=== PATIENT | female | born 1940 | race Caucasian/White ===

== ENCOUNTER 2017-06-02 10:32 | Observation (INO) | payer MEDICARE, OTHER ==
--- NOTE | 2017-06-02 13:24 | HP ---
DATE OF ADMISSION: 06/02/2017 PRIMARY CARE PHYSICIAN: Dr. Alvarez CHIEF COMPLAINT: Fall, sepsis. HISTORY OF PRESENT ILLNESS: Ms. Lopez is a pleasant 76-year-old female with history of breast ca ncer status post mastectomy on 05/25/2017 at [facility]. She was scheduled to have followup in the very near future and possible drain removal. She apparent ly was taken to an outside Emergency Department in [place] via EMS. The patient has had some i ntermittent confusion, and at home had slid to the floor and so called 911 because he could not get her off the floor on the side of the bed. About 3-4 hours prior to presentation there, one of the two drains in her mastectomy bed was actually being pulled out. On arrival to the ER there and via EMS, temperature was 101.9, the rest of her vitals remained stabl e. Her labs there were unremarkable except for white blood cell count of 15.6 and exam was noted to have some erythema at the surgical site. She received a 500 mL bolus out of fear that she might julian ve heart failure and did not want to overload her. They contacted [facility] and spoke to a Dr. Fry at [phone], who said he would accept her as a transfer to the emergency department and wo uld evaluate her, but was not certain if she would be admitted, but certainly would be evaluated. T he ER doctor in [place] was concerned about her being septic and about her possibly being disch arged home from there and so arranged for transport to our emergency department here in [place]. On arrival here, she is afebrile with normal vital signs. Repeat labs were not done. Wound was juancho luated and we were called for admission. I have attempted to call Dr. Fry and left a message, I have attempt to talk to her to get further history, but he is not at home at present. The remainder of the history is taken from the patient, although admittedly not 100% reliable, and f rom the emergency room charts. PAST MEDICAL HISTORY: 1. Atrial fibrillation, paroxysmal. 2. History of breast cancer, estrogen receptor status unknown. 3. Hypertension. 4. Hypothyroidism. 5. GERD. 6. Depression. PAST SURGICAL HISTORY: Include hysterectomy and right mastectomy. HOME MEDICATIONS: 1. Vitamin C. 2. Tramadol p.r.n. 3. BiDil 20/37.5 1/2 tablet p.o. t.i.d. 4. Bupropion XL 150 mg p.o. b.i.d. 5. Coreg 6.25 mg p.o. b.i.d. 6. Iron sulfate 325 mg daily. 7. Lasix 40 mg daily. 8. Digoxin 0.125 mg daily. 9. Levothyroxine 100 mcg daily. 10. Lisinopril 10 mg daily. 11. Protonix 40 mg daily. 12. Paxil 20 mg daily. 13. Spironolactone 25 mg daily. 14. Vitamin D3 1000 units p.o. t.i.d. 15. Multivitamin. ALLERGIES: CODEINE causes nausea. FAMILY HISTORY: Negative for clotting or bleeding disorder, no immune dysfunction. SOCIAL HISTORY: Negative for habits x3. She is and lives in [place]. REVIEW OF SYSTEMS: A 10-point review of systems was performed and negative for all other systems ex cept as per HPI. PHYSICAL EXAMINATION: VITAL SIGNS: Temperature is 98.5, pulse 70, blood pressure 103/56, respiratory rate 16, satting 98% on room air, temperature in the ER at [place] was 100.8, temperature on transfer via EMS was 1 01.9. GENERAL: She is awake. She is alert. She is oriented. She is tired looking, elderly, white femal e, appears to be in no acute distress. She does seem a little confused, but seems to answer questio ns appropriately. HEENT: Normocephalic, atraumatic. Pupils equal, round, reactive to light bilaterally, mucous membr anes moist, with no visible lesions and no thrush. NECK: Supple, without lymphadenopathy, JVD, or thyromegaly. Normal carotid upstrokes. LUNGS: Clear bilaterally. She has no wheezes, no rales, no rhonchi with good air movement and symm etric chest excursion. CARDIOVASCULAR: She is irregularly irregular. She has a normal S1 and S2. I cannot appreciate any murmurs. ABDOMEN: Soft, it is nontender, nondistended, no masses or organomegaly with normoactive bowel soun ds present in all 4 quadrants. There is no rebound, rigidity or guarding. EXTREMITIES: Show no cyanosis, no clubbing with trace bilateral lower extremity edema with 1+ perip heral pulse of the dorsalis pedis and posterior tibial arteries of the legs bilaterally. SKIN: Warm, moist, and well perfused. She does have a healing surgical wound present on the right breast after complete mastectomy. The incision is healing well with one small area approximately 0. 5 x 0.3 cm that is still open a little bit. She has [address] and there is appro ximately 5 to 10 of fluid in the drain that the patient said was last drained 24 hours ago. She has a small Davol drain connected to a small caliber drain tube that is not in the chest anymore. The wound is clean, dry, and intact without any drainage. Surrounding both insertion sites there is min imal erythema with hyperemia, that is blanchable, and quickly refills. It is slightly tender in the shoulder and upper and lower chest area on the right. There are no other rashes or lesions noted. MUSCULOSKELETAL: Normal to inspection. She has no inflamed joints. No palpable joint effusions at her shoulders, knees, elbows, ankles and hips. NEUROLOGIC: Her cranial nerves II-XII are grossly intact. She has no focal neurologic deficits, no rmal strength, and a normal speech pattern. LABORATORY: Laboratory evaluation from [place] showed a comprehensive metabolic profile that w as normal. Creatinine 1.34. I am not sure of her baseline. Troponin I and CK-MB were normal. [facility] te blood cell count was 15.6 with 85% granulocytes and no documented bands. Hemoglobin is 12.1, hem atocrit 35.1, platelet count of 296,000. Her digoxin level was 1.12. RADIOGRAPHIC STUDIES: 1. She had a CT angiogram of the thorax was negative for pulmonary embolus and showed normal postop changes of the right breast. 2. She had a brain CT without contrast done that showed no acute intracranial abnormality, no bleed , no skull fracture. ASSESSMENT AND PLAN: 1. Possible postoperative wound infection. She has minimal erythema around the drain insertion sit e. We will cover vancomycin and cefepime. I will obtain blood cultures for temperature greater alma n or equal to 101.0. I have called Dr. Fry, her oncologic surgeon from [facility] and gen durand a call back. I will place her in observation, start her on antibiotics, and IV fluids. We will w atch overnight. If she improves or remains stable and has no further fever, will transition to oral antibiotics and let her follow up with [facility]. I will try to get the current drain status b ack from her surgeon. 2. Sepsis: Elevated white count, fever, presumed bacterial infection of the breast site, the patie nt received 500 mL bolus at outside hospital. She has no history of heart failure. She has remaine d hemodynamically stable with negative lactate and normal organ test here, therefore we will continu e at 100 mL an hour of normal saline and watch overnight. 3. Atrial fibrillation, paroxysmal, versus persistent: She is on digoxin, Coreg, and is hemodynami shelley stable. Her rate is well controlled. 4. Breast cancer: Estrogen receptor status unknown. 5. Hypertension: She is on BiDil, Coreg, Lasix, lisinopril. We will hold these at present, she do es not believe she had her medicine this morning, and her blood pressure here has been borderline no rmal. 6. Hypothyroidism on Synthroid, we will continue. 7. Gastroesophageal reflux disease, on Protonix. We will continue. 8. Depression, on bupropion and Paxil. We will continue at a later date. 9. Physical debility: was unable to get her off the floor, and feel that she would benefit from rehab. She has been at an outside facility for 3 midnights in the last 30 days, and thus I wi ll discuss with case management getting her set up for rehab close to home. We will continue current management.
[2017-06-02] MEDS ORDERED: HYDROcodone/Acetaminophen 5/325 mg Tablet PO PRN (14:56)
[2017-06-02] MEDS ORDERED: HYDROcodone/Acetaminophen 10/325 mg Tablet PO PRN (14:56)
[2017-06-02] MEDS ORDERED: VANCOMYCIN IVPB PRN (14:56)
[2017-06-02] MEDS ORDERED: Acetaminophen 325 MG TAB PO PRN (14:56)
[2017-06-02] MEDS ORDERED: Ondansetron ODT 4 MG TAB PO PRN (14:56)
[2017-06-02 15:50] VITALS: BMI 29.8
[2017-06-02] MEDS: Sodium Chloride 0.9% 1,000 ML IV SCH (16:23)
[2017-06-02] MEDS ORDERED: Vancomycin HCl 1 GM in Premix Bag 1 BAG IVPB SCH (17:00)
[2017-06-02] MEDS: Cefepime 2 GM in Sodium Chloride 0.9% 100 ML IVPB SCH (18:28)
[2017-06-02] MEDS ORDERED: FLU VACC TS2017-18 (>65YR) 0.5 ML SYRINGE IM ONE (21:00)
[2017-06-03] MEDS: Cefepime 2 GM in Sodium Chloride 0.9% 100 ML IVPB SCH (03:19)
[2017-06-03] MEDS: Sodium Chloride 0.9% 1,000 ML IV SCH ×2 (03:19→12:35)
[2017-06-03 05:55] LABS: #Eosinphils 0.4 thou/uL (0.0-0.7); #Lymphocytes 1.4 thou/uL (1.20-3.40); #Monocytes 0.7 thou/uL (0.11-0.59); #Neutrophils 5.8 thou/uL (1.40-6.50); %Basophils 0.3 % (0.0-1.0); %Eosinophils 4.8 % (0.0-10.0); %Monocytes 8.6 % (0.0-10.0); Hematocrit 33.5 % (36.0-47.0); Mean Platelet Volume 7.4 fL (7.4-10.4); Red Blood Cell (RBC) Count 3.65 mill/uL (4.20-5.40); White Blood Cell (WBC) Count 8.3 thou/uL (4.8-10.8)
[2017-06-03 06:26] LABS: Anion Gap 7 mmol/L (10-20); BUN (Urea Nitrogen) 18 mg/dL (9.8-20.1); Calc. Creatinine Clearance 54 mL/min (70-130); Calcium 8.9 mg/dL (7.8-10.44); Carbon Dioxide 26 mmol/L (23-31); Chloride 106 mmol/L (98-107); Estimated GFR-MDRD 53
[2017-06-03] MEDS ORDERED: Enoxaparin Sodium 40 MG/0.4 ML SYRINGE SC SCH (09:00)
--- NOTE | 2017-06-03 16:33 | DIS ---
DATE OF ADMISSION: 06/02/2017 DATE OF DISCHARGE: 06/03/2017. PRIMARY CARE PHYSICIAN: Dr. Pinzon in [place]. DISCHARGE DIAGNOSES: 1. Postoperative right mastectomy site wound infection/cellulitis. 2. Sepsis. 3. Hypertension. 4. Paroxysmal atrial fibrillation. 5. Breast cancer. 6. Hypertension. 7. Hypothyroidism. 8. Gastroesophageal reflux disease. 9. Depression. 10. Physical debility. CONSULTATIONS: None. PROCEDURES: Posterior/large Davol drain removal. HISTORY AND PHYSICAL : Ms. Lopez is a pleasant 76-year-old female with breast cancer, estrogen r eceptor status unknown, who has followed in [facility]. On 05/25/2017, she underwe nt a right mastectomy and placement of 2 subcutaneous drains. She was discharged home after 1 night stay and has been getting home care through [facility]. She developed weakness over the last several days and actually the day of admission had fallen down by her bed and slid down and sat on the floor. She was able to give her own strength and not with t he strength of her either. They called EMS and she was taken to an outside Emergency Depart ment at [place]. En route, she was reported to be 101.9 degrees Fahrenheit, she was sleepy, but otherwise unremarkabl e with normal vital signs. On arrival there, workup showed a white blood cell count of 15,600 and an erythematous incisional ar ea. It was also noted that are smaller Davol, anterior, had been pulled a few hours before EMS arri lorelei incidentally. The ER doctor there called [facility] who agreed to see the patient on transferred to their ER an d evaluate to decide whether to keep or sent home on oral antibiotics, but instead the ER doctor Cordell de anda transferred here for further evaluation to ensure she was admitted. HOSPITAL COURSE: The patient was seen and examined by me in the ER, she was hemodynamically stable and mental status was stable. She had a slight erythema of her wound and actually looked very good. Her was not present and I could not get any further history and subsequently called Dr. Alli bardales at [facility]. The patient was placed on observation status, started IV antibiotics and Dr. Horn called me back. We discussed the plan of observation with antibiotics and repeat labs in morning, which she is agreeable with and the patient was subsequently admitted. Overnight, she did well, she had no fevers. Tolerated vancomycin and cefepime well. She had a slig ht decreased erythema to her wound, and some clear serous drainage from the anterior drain hole. Po sterior drain was still in place and still maintaining suction, and had no additional drainage from the time she has been in the ER 24 hours prior. Through the course of the day, she had minimal ajith tion to her Davol, she was able to get with physical therapy and ambulated well over 150 feet with m inimal assistance, and was hemodynamically stable. White blood cell count was normal. I spoke with Niurka, Dr. Fry's PA, and discussed the case with her. She asked me to pull the drain if the patient was not going to be coming to the clinic tomorrow, but instead next week. I discuss ed at length with the and the when the arrived, and he preferred to show up ear ly next week. The drain was subsequently removed and covered with a dry gauze. Prescriptions were sent to [facility] per the 's request and the patient was otherwi se stable for discharge with follow up with [facility] early next week for wound check, Radiation and Oncology follow up. PHYSICAL EXAMINATION: The patient was seen and examined on the day of discharge. Discharge plan and disposition were discussed with the patient and her face to face at the [facility]. DISCHARGE MEDICATIONS: 1. Clindamycin 300 mg p.o. t.i.d. for 10 days. 2. Keflex 500 mg p.o. t.i.d. for 10 days. 3. Benzonatate p.r.n. 4. Carvedilol 6.25 mg p.o. b.i.d. 5. Digoxin 0.125 mg p.o. daily. 6. Lasix 40 mg daily. 7. BiDil 20/37.5 1/2 tablet p.o. t.i.d. 8. Levothyroxine 100 mcg daily. 9. Lisinopril 5 mg daily. 10. Paroxetine 20 mg daily. 11. Potassium chloride 20 mEq daily. 12. Spironolactone 25 mg daily. FOLLOWUP APPOINTMENTS: 1. Primary care physician within a week. 2. [facility] Wednesday or Masha. Marry, physician's data analysis assistant will call with appointment time. DISCHARGE CONDITION: Good. Disposition being discharged to home with home health care [facility] via a private vehicle with her .
[2017-06-03 16:36] VITALS: TEMP 98
[2017-06-03 17:41] VITALS: BP 119/82
--- NOTE | 2017-06-05 14:48 | EKG ---
Test Reason : Blood Pressure : / mmHG Vent. Rate : 070 BPM Atrial Rate : 070 BPM P-R Int : 164 ms QRS Dur : 086 ms QT Int : 366 ms P-R-T Axes : 016 031 -36 degrees QTc Int : 395 ms Normal sinus rhythm Nonspecific T wave abnormality Abnormal ECG Confirmed by TRACY CASE, IVAN Lira ([id number]), editor in chief newspaper PEREZ BATISTA ([id number]) on 06/05/2017 2:48:08 PM Referred By: Confirmed By:IVAN MOLINA MD
== END 2017-06-03 17:07 | disposition home health service (06) ==
LOC: ERS 10:32 → INTOOBSV 12:59 → T4-B 12:59
PROVIDERS: ADMIT Internal Medicine Infectious Disease; ATTEND Internal Medicine Infectious Disease
DX: T81.4XXA Infection following a procedure, initial encounter (principal); A41.9 Sepsis, unspecified organism; C50.919 Malignant neoplasm of unspecified site of unspecified female breast; I10 Essential (primary) hypertension; I48.0 Paroxysmal atrial fibrillation; E03.9 Hypothyroidism, unspecified; K21.9 Gastro-esophageal reflux disease without esophagitis; F32.9 Major depressive disorder, single episode, unspecified; R53.81 Other malaise; Z88.5 Allergy status to narcotic agent; Z79.899 Other long term (current) drug therapy; Z90.10 Acquired absence of unspecified breast and nipple
CPT/HCPCS: 80048; 85025; 93005; 96361 ×3; 96365; 96366; 96367; 96372; 96376; 97116; 97139; 99285; G0378; G8978; G8979; 36415; 96360; J0692; J1650; J3370; J7050

== ENCOUNTER 2017-12-05 03:22 | Emergency (ER) | payer MEDICARE, OTHER ==
[2017-12-05] MEDS ORDERED: Fleet Enema 133 ML BOT FS SCH (04:15)
[2017-12-05] MEDS ORDERED: Fluconazole 100 MG TAB PO SCH (04:45)
[2017-12-05] MEDS ORDERED: Magnesium Citrate 300 ML BOT PO SCH (05:30)
[2017-12-05] MEDS ORDERED: Magnesium Citrate 300 ML BOT ONE (05:43)
--- NOTE | 2018-01-16 | EKG ---
Test Reason : Blood Pressure : / mmHG Vent. Rate : 088 BPM Atrial Rate : 088 BPM P-R Int : 174 ms QRS Dur : 084 ms QT Int : 426 ms P-R-T Axes : 069 030 039 degrees QTc Int : 515 ms Sinus rhythm with frequent Premature ventricular complexes Prolonged QT Abnormal ECG Confirmed by TESS MANDEL ([id number]), editor producer PEREZ BATISTA ([id number]) on 01/15/2018 11:59:53 PM Referred By: Confirmed By:TESS MANDEL
== END 2017-12-05 10:24 | disposition home or self-care (01) ==
LOC: ERS 03:22
DX: K56.41 Fecal impaction (principal); K60.2 Anal fissure, unspecified; B37.9 Candidiasis, unspecified; I48.91 Unspecified atrial fibrillation
CPT/HCPCS: 93005; 96360; 96361

== ENCOUNTER 2019-09-08 04:27 | Inpatient (IN) | payer MEDICARE, OTHER ==
[2019-09-08 04:41] LABS: Actual Bicarbonate (HCO3a) 22.1 mEq/L (22-28); Analyzer IN Cardio ER; Base Excess (BEa) -2.7 mEq/L (-2.0 to +3.0); CO2 Tension 38.5 mmHg (35.0-45.0); Calcium, Ionized 1.18 mmol/L (1.12-1.30); Carboxyhemoglobin (COHb) 0.3 gm% (0.0-3.0); Hemoglobin (Hb) 12.9 g/dL (12.0-16.0); O2 Tension (PaO2) 80.9 mmHg (> 70.0); Potassium - ABG Lab 3.62 mmol/L (3.70-5.30); pH, Arterial 7.38 (7.35-7.45)
[2019-09-08 04:54] LABS: ALV-art Gradient 156.175 (0-20); Puncture Site LBA
[2019-09-08] MEDS ORDERED: Furosemide 100 MG/10 ML VIAL SLOW IVP SCH (06:00)
[2019-09-08 07:02] LABS: CKMB 4.2 ng/mL (0-6.6)
[2019-09-08 08:19] VITALS: BMI 34.2
[2019-09-08] MEDS ORDERED: hydrALAZINE 20 MG/ML VIAL SLOW IVP PRN (08:23)
--- NOTE | 2019-09-08 08:55 | HP ---
PRIMARY CARE PHYSICIAN: Dr. Pinzon. CHIEF COMPLAINT: Shortness of breath. HISTORY OF PRESENT ILLNESS: Ms. Lopez is a pleasant 78-year-old female, who has a history of congestive heart failure, unknown type, as well as hypertension and hypothyroidism. She was in her usual state of health until she says yesterday when she suddenly became short of breath. She tells me she was not having much problems prior to that. She denies having any chest pain or palpitations. No increasing lower extremity edema. No PND or orthopnea, but just suddenly became short of breath. Her primary care physician is Dr. Pinzon and she says it has been "a long time" since she saw her at least over a year when I asked, and as our conversation progressed, she appeared to be becoming more tachypneic and using some accessory muscles of respiration. She was seen in the ER and found to be extremely short of breath as well as hypoxic. Chest x-ray showed bilateral pulmonary infiltrates, the right more than the left, and they were on the verge of intubating her. Apparently, according to those records, she refused this. They placed her on BiPAP and then CPAP and then transferred her here. When I asked the patient would she want to be intubated, she confirms that she does not want to be placed on a ventilator. However, during our conversation, we will have to place her back on BiPAP. REVIEW OF SYSTEMS: This is unobtainable as the patient is extremely dyspneic. PAST MEDICAL HISTORY: Significant for congestive heart failure, atrial fibrillation, hypothyroidism, hypertension, breast cancer as well as anxiety. PAST SURGICAL HISTORY: She has had a right mastectomy as well as hysterectomy. ALLERGIES: TO CODEINE AND SULFA. SOCIAL HISTORY: She is a nonsmoker and nondrinker. She is . She does not want intubation, but will accept CPR. FAMILY HISTORY: No history of any inheritable diseases. MEDICATIONS: Currently unknown. PHYSICAL EXAMINATION: GENERAL: She is alert and oriented. She appears to be in some distress due to dyspnea. She is well developed and well nourished. VITAL SIGNS: Blood pressure 133/70, heart rate 116, respiratory rate of 24, temperature is 97.8. HEENT: Pupils are equal, round, and reactive. Extraocular muscles are intact. Her sclerae anicteric. Throat: There is no erythema, no exudates. She is edentulous. NECK: She did have increased jugular venous distention to the angle of the jaw approximately 4 to 5 cm. There are no bruits. LUNGS: She has bilateral rales throughout her lung alexander as well as some mild expiratory wheezing bilaterally. CARDIOVASCULAR: There was a normal S1 and S2. No appreciable S3. No murmurs, clicks, or rubs. ABDOMEN: Soft, nontender, and nondistended. Positive for bowel sounds. No rebound. No guarding. No organomegaly. EXTREMITIES: She has 1+ edema. No calf tenderness, no joint effusions. NEUROLOGIC: Nonfocal. SKIN AND INTEGUMENT: There are no skin changes. No rash. LABORATORY DATA: CBC, the white blood cell count is 11.1, hemoglobin 13, hematocrit is 42.7, and platelet count is 228. The sodium is 138, potassium 3.1, chloride is 101, CO2 is 19, BUN of 21, creatinine 1.57, glucose is 265. BNP was 1166. Troponin was 0.126. Again, chest x-ray showed bilateral increased pulmonary vascular markings. EKG, currently she is in sinus rhythm, the rate was 119. She had some, what appears to be, T-wave inversions in 1 and aVL. This is both by my reading. ASSESSMENT: This is a pleasant 78-year-old female, who presents to the ER with shortness of breath as well as clinical evidence for heart failure with pulmonary edema, distended neck veins as well as peripheral edema, elevated BNP on lab work, as well as chest x-ray which was consistent. She will be admitted to the [facility], given that she has required BiPAP and currently had to be placed back on BiPAP. We will continue IV Lasix for diuresis. We will add QUINTON inhibitor as tolerated. Echocardiogram has been ordered and we will also consult Cardiology. 1. Atrial fibrillation. This appears to be rate controlled at this time, she is slightly tachycardic. We will need to reconcile her home medications and restart as appropriate. 2. Hypertension. Again, she is a bit hypertensive. We will need to reconcile and restart her home medications and titrate as needed. 3. Hypothyroidism. We will check a TSH and free T4 to assess the status. Job ID: [id number]
[2019-09-08 09:56] LABS: Troponin I 0.147 ng/mL (< 0.028)
[2019-09-08] MEDS: Lisinopril 5 MG TAB PO SCH (10:17)
[2019-09-08] MEDS: Famotidine/PF 20 mg/2ml Vial SLOW IVP SCH ×2 (10:18→22:31)
[2019-09-08] MEDS: Carvedilol 3.125 MG TAB PO SCH ×2 (10:18→20:03)
[2019-09-08] MEDS: Enoxaparin Sodium 30 MG/0.3 ML SYRINGE SC SCH (10:18)
[2019-09-08 10:21] LABS: Thyroid Stimulating Hormone 96.8011 uIU/mL (0.35-4.94)
[2019-09-08] MEDS ORDERED: Furosemide 40 MG/4 ML VIAL SLOW IVP SCH (11:30)
[2019-09-08 12:06] LABS: Troponin I 0.129 ng/mL (< 0.028)
[2019-09-08] MEDS: Furosemide 40 MG/4 ML VIAL SLOW IVP SCH (15:02)
[2019-09-08] MEDS: Nitroglycerin 2% Ointment 1 INCH/1 GM Packet TOP SCH ×2 (15:02→22:53)
[2019-09-08 17:37] LABS: Free T4 (Free Thyroxine) Less than 0.40 ng/dL (0.70-1.48)
--- NOTE | 2019-09-09 01:23 | CON ---
DATE OF CONSULTATION: 09/08/2019 HISTORY OF PRESENT ILLNESS: Sary Lopez is a pleasant 78-year-old female. She is admitted with a diagnosis of congestive heart failure. She says she feels better than she did on admission. She has no history that she will admit to a congestive heart failure and says she has never seen a furniture painter. She presented with more than 24 hours of shortness of breath. Chest radiograph showed findings consistent with pulmonary edema. She was initially placed on BiPAP, has been weaned off and says she is feeling better. PAST MEDICAL HISTORY: Remarkable for atrial fibrillation, hypothyroidism, hypertension, breast cancer, anxiety, mastectomy, and hysterectomy. ALLERGIES: SHE REPORTS ALLERGIES TO SULFA AND CODEINE. SOCIAL HISTORY: Nonsmoker and nondrinker. FAMILY HISTORY: Negative for lung disease in early age. REVIEW OF SYSTEMS: 10 point review of systems completed, otherwise negative. PHYSICAL EXAMINATION: GENERAL: She is pleasant and cooperative, in no distress. She is lying in approximately 30 degrees. I did help her sit up more in bed because she said she wanted to be more upright. VITAL SIGNS: She is afebrile. Heart rate is in 80s, respiratory rates in the teens, oximetry is 95% to 97% this evening. HEENT: Pupils are equal. Sclerae are anicteric. NECK: Supple. No lymphadenopathy. LUNGS: Remarkable for crackles at both lung bases. HEART: Regular rhythm. S1, S2 normal. ABDOMEN: Soft and nontender. EXTREMITIES: Without clubbing, cyanosis, or edema. LABORATORY DATA: pH 7.38, CO2 38, PO2 80. Troponins are all less than 0.2. TSH was 96. IMPRESSION: 1. New onset congestive heart failure. 2. Severe hypothyroidism. PLAN: 1. Thyroid replacement gently. 2. Diuresis, continuing support. Cardiology input would be good idea for long- term followup. This is a 50 minute consult, with greater than 50% of time spent on unit coordinating care. Job ID: [id number] [facility]
--- NOTE | 2019-09-09 01:32 | CON ---
DATE OF CONSULTATION: PRIMARY CARE DOCTOR: Dr. Pinzon. PRIMARY LEASE ADMINISTRATION SUPERVISOR: Liberty Edgar MD REASON FOR CONSULTATION: CHF exacerbation. HISTORY OF PRESENT ILLNESS: Ms. Lopez is a 78-year-old female with a significant history of congestive heart failure, hypertension, and hypothyroidism. At this moment, the patient is a very poor historian, so the patient's information was obtained from the patient's medical history. According to patient's primary care doctor's report, the patient came to the emergency department due to worsening of shortness of breath. She states she had shortness of breath for 2 to 3 days. She says she did not take any medication for 3 days. Also, according to the nurse, the patient's reported that he has not given any medication to the patient for 3 days due to his own medical problems. She was on BiPAP when she was admitted to this unit; however, BiPAP is off, now she is on 2 L nasal cannula with O2 sats of 94%. She denied shortness of breath, but she continued having chronic fatigue. The patient had echocardiogram done today, and the result is still pending at this moment. According to the patient's nurse, the patient's 's told her that the patient's EF in 2016 was 10% and then eventually, the patient's EF came back to 30%. However, at this moment, the patient cannot remember any medication, home medication or her reading coach. PAST MEDICAL HISTORY: Congestive heart failure, atrial fibrillation, hypothyroidism, hypertension, breast cancer, and anxiety. PAST SURGICAL HISTORY: Right mastectomy 2 or 3 years ago, eye surgery, and hysterectomy. FAMILY HISTORY: The patient's mother due to the complication of heart disease at the age of 40s. SOCIAL HISTORY: She is . She is living with her . She has 2 children, one of her children due to congenital heart problem. She is an ex-smoker. She quit around . She denies EtOH or illicit drug abuse. She does not exercise. She states that she does not have a good balance, but she does not use a walker or wheelchair at home. ALLERGIES: SHE IS ALLERGIC TO CODEINE. MEDICATION: Currently unknown. REVIEW OF SYSTEMS: 12-point review of systems negative unless otherwise mentioned in the HPI. PHYSICAL EXAMINATION: VITAL SIGNS: Blood pressure 108/87, heart rate 80s, O2 saturation 94% on room air, temperature 97.9. GENERAL: The patient is alert and oriented x to self only, but not in acute distress. HEENT: Normocephalic, atraumatic. Eyes, extraocular muscle movement intact. ENT and mouth, oral and nasal mucosa moist without lesion. NECK: Supple. Normal range of motion. No JVD. RESPIRATORY: Very diminished in the bilateral lobes. CARDIOVASCULAR: Regular rate and rhythm. Normal S1, S2. No S3 or S4. No significant murmur, hives, or thrill noted. 2+ pulses in the bilateral upper extremities, but diminished in the lower extremities. No edema in the lower extremities. Carotid pulses are present without bruit or thrill. ABDOMEN: Soft, nontender. No mass to palpitate. Bowel sounds are present, but hypoactive. SKIN: Warm and dry. No lesion, rash, or erythema noted. MUSCULOSKELETAL: The patient can move upper extremities, but having difficult time to move the lower extremities at this moment. NEUROLOGIC: The patient is alert and oriented x to self only at this moment. Nonfocal. PSYCHIATRIC: The patient's mood is appropriate. IMAGING STUDIES: Chest x-ray shows nonspecific new interstitial and alveolar opacity bilaterally, right side is greater than the left side. The patient's chest CT scan was reviewed, and the patient had a pulmonary nodule in the left lower lobe, fatty liver and moderate amount of . ASSESSMENT AND PLAN: 1. Congestive heart failure exacerbation. The patient's condition is stable at this moment with Lasix 40 mg IV push twice a day. She is on carvedilol 3.125 mg twice a day, lisinopril 2.5 mg twice a day. The echocardiogram was done today and the result is pending at this moment. 2. Atrial fibrillation. The patient's telemetry record has been showing the patient to be in sinus rhythm. She is on carvedilol 3.125 mg twice a day. We will restart at least aspirin 81 mg once a day now. 3. Hypertension. The patient's blood pressure is stable at this moment with current medication. 4. Hypothyroidism. She is not on any thyroid medication. The patient has been supposed to call and notify the patient's home medication. 5. Possible acute kidney injury on chronic kidney disease. The patient's kidney level has been elevated, but stable at this moment. Thank you very much for Cardiology Service to participate in the care of this patient. We will follow this patient along the patient's care team and make further recommendation as appropriate. Job ID: [id number]
[2019-09-09 04:36] LABS: #Eosinphils 0.1 thou/uL (0.0-0.7); #Lymphocytes 1.4 thou/uL (1.20-3.40); #Monocytes 0.4 thou/uL (0.11-0.59); #Neutrophils 4.8 thou/uL (1.40-6.50); %Basophils 0.6 % (0.0-1.0); %Eosinophils 2.2 % (0.0-10.0); %Lymphocytes 20.6 % (21.0-51.0); %Neutrophils 70.7 % (42.0-75.0); Hemoglobin 12.4 g/dL (12.0-16.0); Mean Corpuscular HGB CONC 33.2 g/dL (32.0-36.0); Mean Corpuscular Hemoglobin 30.8 pg (27.0-31.0); Mean Corpuscular Volume 92.6 fL (78.0-98.0); Mean Platelet Volume 9.1 fL (7.4-10.4); Platelet Count 260 thou/uL (130-400); RBC Distribution Width 13.6 % (11.5-14.5); Red Blood Cell (RBC) Count 4.04 mill/uL (4.20-5.40); White Blood Cell (WBC) Count 6.8 thou/uL (4.8-10.8)
[2019-09-09 04:48] LABS: Anion Gap 15 mmol/L (10-20); BUN (Urea Nitrogen) 22 mg/dL (9.8-20.1); Calc. Creatinine Clearance 42 mL/min (70-130); Calcium 8.9 mg/dL (7.8-10.44); Carbon Dioxide 29 mmol/L (23-31); Chloride 100 mmol/L (98-107); Estimated GFR-MDRD 35; Glucose 88 mg/dL (83-110); Potassium 3.5 mmol/L (3.5-5.1); Sodium 140 mmol/L (136-145)
[2019-09-09] MEDS ORDERED: Furosemide 40 MG TAB PO SCH (05:00)
[2019-09-09] MEDS: Furosemide 40 MG/4 ML VIAL SLOW IVP SCH ×2 (05:44→14:19)
[2019-09-09] MEDS: Nitroglycerin 2% Ointment 1 INCH/1 GM Packet TOP SCH ×3 (06:12→21:13)
[2019-09-09] MEDS: Carvedilol 3.125 MG TAB PO SCH ×2 (08:05→21:12)
[2019-09-09] MEDS: Famotidine/PF 20 mg/2ml Vial SLOW IVP SCH (08:05)
[2019-09-09] MEDS: Aspirin 81 mg Enteric Coated Tablet PO SCH (08:05)
[2019-09-09] MEDS: Lisinopril 5 MG TAB PO SCH (08:05)
[2019-09-09] MEDS: Enoxaparin Sodium 30 MG/0.3 ML SYRINGE SC SCH (08:05)
[2019-09-09] MEDS ORDERED: FLU VACC TS2019-20(65YR UP)/PF 180 MCG/0.5 ML SYRINGE IM ONE (09:00)
[2019-09-09] MEDS ORDERED: Prevnar 13-Val Conj/PF 0.5 ML SYRINGE IM ONE (09:00)
--- NOTE | 2019-09-09 10:39 | PDOC.CPN ---
- Subjective Date: 09/09/19 Time: 10:15 - Review of Systems ROS unobtainable: due to mental status (pt. is confused, demented. in denial of CHF or CMY.) - Objective Allergies/Adverse Reactions: Allergies Allergy/AdvReac Type Severity Reaction Status Date / Time codeine AdvReac Mild Nausea Verified 09/08/19 19:51 Visit Medications: Current Medications Acetaminophen (Tylenol) 650 mg PO Q4H PRN PRN Reason: Headache/Fever/Mild Pain (1-3) Aspirin (Ecotrin) 81 mg PO DAILY [facility] Last Admin: 09/09/19 08:05 Dose: 81 mg Carvedilol (Coreg) 3.125 mg PO BID [facility] Last Admin: 09/09/19 08:05 Dose: 3.125 mg Enoxaparin Sodium (Lovenox) 30 mg SC 0900 [facility] Last Admin: 09/09/19 08:05 Dose: 30 mg Famotidine (Pepcid) 20 mg SLOW IVP DAILY [facility] Last Admin: 09/09/19 08:05 Dose: 20 mg Furosemide (Lasix) 40 mg SLOW IVP 0600,1400 [facility] Last Admin: 09/09/19 05:44 Dose: Not Given Hydralazine HCl (Apresoline) 10 mg SLOW IVP Q4H PRN PRN Reason: SBP > 180 and HR < 70 Lisinopril (Zestril) 2.5 mg PO DAILY [facility] Last Admin: 09/09/19 08:05 Dose: 2.5 mg Nitroglycerin (Nitro-Bid 2% Ointment) 0.5 inch TOP Q8HR [facility] Last Admin: 09/09/19 06:12 Dose: 0.5 inch Vital Signs & Weight: Vital Signs Temp Pulse Pulse Ox 09/09/19 09:00 98.4 F 09/09/19 08:05 81 09/09/19 07:33 93 L 09/09/19 05:17 97.8 F 09/09/19 03:36 94 L 09/09/19 00:00 97.6 F 94 L Weight 175 lb 3.2 oz - Quality Measures Condition: Heart Failure CV meds: Beta Emily: Yes, QUINTON/ARB: Yes, ASA: Yes - Physical Exam General: other (oriented to self) HEENT: normocephaly Neck: supple neck, no bruit, no lymphadenopathy Cardiac: regular rate and rhythm, S1/S2, audible murmur (1-2/6 syst. murmur at the apex.) Lungs: clear to auscultation Neuro: motor function intact Abdomen: unremarkable Extremities: no edema Musculoskeletal: normal range of motion - Labs Result Diagrams: 09/09/19 03:24 09/09/19 03:24 Troponin/CKMB CK-MB (CK-2) 4.2 ng/mL (0-6.6) 09/08/19 06:02 Troponin I 0.129 ng/mL (< 0.028) H 09/08/19 11:26 - Telemetry Sinus rhythms and dysrhythmias: sinus rhythm - Assessment/Plan Assessment/Plan: 1. CHF: improving after diuresis. Continue diuretics. 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 2. CMY: EF: 10-15%. This has been present for at least 3 years. Medical treatment. She is not a candidate for an AICD. 3. Dementia. She is not able to care for herslf and her also is sick and not able to adequately care for her. 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 4. Hx. of breast cancer. reportedly stable. Probably should have discussion about palliative care or hospice.
--- NOTE | 2019-09-09 15:03 | CON ---
DATE OF CONSULTATION: 09/08/2019 She was seen yesterday this is a late dictation. She was seen by my nurse practitioner yesterday. We have discussed this patient in detail. HISTORY OF PRESENT ILLNESS: She is a very unfortunate 78-year-old female, who has dementia. She has history of congestive heart failure, hypertension, breast cancer, and hypothyroidism. About 3 years ago, she was seen, I believe, up in [place], and was found to have congestive heart failure, ejection fraction was approximately about 10% according to the family at that time, it did improve over time, which he says increased up to maybe 30% with medications and treatment. She then was also seen apparently according to the by a dot compliance coordinator at [facility], but then he said he was unable to continue contacting her, but the doctor did not call back, it is unclear, but anyway the patient denies she has any history of congestive heart failure; however, she is demented and there was no indication she has had any discussion about an AICD or any other interventional procedures. The did tell me that she did undergo a cardiac catheterization up in [place], and apparently, there was no coronary artery disease found, I do not have those records. Apparently, she does relatively well at home. She did undergo chemotherapy for her breast cancer, but the is unsure whether or not this occurred prior to the diagnosis of the congestive heart failure. Certainly, if she was treated with antineoplastic medications that are cardiotoxic, then this could be the etiology of the cardiomyopathy; however, she already had a cardiomyopathy. I would be somewhat suspicious that they would even give her these medications, with a severe decrease in left ventricular systolic function. She also was seen in [place] for the breast cancer, and I am uncertain whether or not she saw her dot compliance coordinator at that time. Since she has been admitted, she has been diuresed and she is feeling better. She has continued to get out of the bed by herself despite being told not to. She is definitely confused. She denies any chest pain. She has had some lower extremity edema in the past, but now her legs seem to be much better after she is diuresed. PAST MEDICAL HISTORY: Please refer to the notes dictated by my nurse practitioner. SOCIAL HISTORY: Please refer to the notes dictated by my nurse practitioner. FAMILY HISTORY: Please refer to the notes dictated by my nurse practitioner. REVIEW OF SYSTEMS: Please refer to the notes dictated by my nurse practitioner. ALLERGIES: PLEASE REFER TO THE NOTES DICTATED BY MY NURSE PRACTITIONER. MEDICATIONS: Please refer to the notes dictated by my nurse practitioner. PHYSICAL EXAMINATION: GENERAL: An elderly female. She is disoriented at times, but can tell me that she is and she is awake and alert. She knows that she is in the hospital at times, but otherwise is certainly confused about her situation and is in denial that she has heart failure. VITAL SIGNS: Her blood pressure was 108/87, heart rate is in the 80s and she has a sinus rhythm, O2 saturations are 94%, and she is afebrile. HEENT: Shows the head to be normocephalic and atraumatic. Carotid pulses are present. I did not hear any bruits. CHEST: Slight decreased breath sounds. She has poor inspiratory effort at times, otherwise I did not hear any rales, rhonchi, or wheezing. CARDIOVASCULAR: Regular rate and rhythm. She has a very soft systolic murmur at the apex. Otherwise, there were no significant murmurs, heaves, thrills, bruits, or rubs. ABDOMEN: Shows the abdomen to be soft and nontender. Positive bowel sounds are present. No masses are present. EXTREMITIES: No clubbing or cyanosis at this time. NEUROLOGIC: Again, the patient is confused and obviously is disoriented. She does know her name and sometimes she would tell me her 's name, but she is in denial of her heart failure. IMAGING STUDIES: Chest x-ray shows evidence of possible on admission a congestive heart failure. We would repeat the chest x-ray and see if this has improved. She did undergo an echocardiogram earlier on 09/08/2019, which shows severe decrease in left ventricular systolic function, ejection fraction 10% to 15%, dilated left ventricle, probable diastolic dysfunction. LABORATORY DATA: As noted on the previous dictations, but WBC was 6.8, hemoglobin 12.4, and platelet count was 260,000. Her MBs are normal, troponin-I was slightly indeterminate, which could be associated with her congestive heart failure. Elevated TSH, level of 96. Creatinine was 1.4 with a BUN of 22, potassium was 3.5, and sodium was 140. There is elevated TSH, so it would not be unexpected since she is already taking levothyroxine at home. IMPRESSION: 1. An elderly female who has dementia, who has severe cardiomyopathy with ejection fraction of 10% to 15% with congestive heart failure exacerbation, both systolic and diastolic. In this case, we would continue medical management with diuresis and hope that it will become asymptomatic. Certainly in this case, she would start discussions most likely with Palliative Care or Hospice. She has been living at home with her and had not been taking her medicines for several days, and the excuse for this was, he had been dealing with his own illness and apparently had to undergo a blood transfusion in the emergency room due to severe anemia. What appear that this patient either needs to be in a detention situation or at least in the assisted living that she can get better care. 2. Dementia, which would be dealt with by the primary care service. 3. Cardiomyopathy, which is an ongoing process for at least 3 years. We will continue her medications and see whether or not we will get some improvement. If she is unable to take her medicines on a regular basis or if she has not given them on a regular basis, then this presents a problem with some of the medications, but we will certainly continue diuretics, beta blockers, and an QUINTON inhibitor. Her kidney function appears to be tolerable at this time, would not be a contraindication, but the creatinine is slightly elevated at 1.46. If possible, it would be advisable to obtain her records from previous admissions from [place] or either from [facility] if she actually was seen at [facility] by dot compliance coordinator there, and certainly she would have had an echocardiogram and we could compare the results of the echocardiogram at that time as to what we are now seeing. 4. History of breast cancer. This appears to be stable at this time. We are more than happy to continue to follow the patient with you, but overall prognosis obviously in this elderly 78-year-old female with a repeat bouts of congestive heart failure is probably not a very good prognosis. She is obviously not a candidate for an Automatic implantable cardioverter-defibrillator implant given her level of care and also her dementia. Job ID: [id number]
--- NOTE | 2019-09-09 15:23 | PRG ---
DATE OF SERVICE: 09/09/2019 SUBJECTIVE: Sary Lopez says she is feeling better. OBJECTIVE: VITAL SIGNS: Heart rates in the 80s, blood pressure 115/76, respiratory rate is 15, oximetry is in the 90s. Intake and output -1065 today. LUNGS: Remarkable for crackles at her bases. HEART: Regular rhythm. ABDOMEN: Soft. EXTREMITIES: Without edema. DIAGNOSTIC STUDIES: Echocardiogram shows an ejection fraction of 15% to 20%. Unfortunately, she has [id number] mitral regurgitation. IMPRESSION: Congestive heart failure, slowly improving, new onset. PLAN: Continue supportive care. Job ID: [id number]
--- NOTE | 2019-09-09 16:03 | PDOC.HOSPP ---
- Subjective Encounter Date: 09/09/19 Encounter Time: 01:00 Subjective: The patient is laying down on 2L nasal cannula. Per nurse, she is confused and tries to get out of bed frequently. Patient says she is unaware of having any problems with her heart previously. States it is July 2020. She has been taking off her CPAP frequently per nurse and wont wear it long enough She denies chest pain or shortness of breath - Objective Vital Signs & Weight: Vital Signs (12 hours) Temp Pulse Pulse BP Pulse Ox 09/09/19 12:21 83 107/69 09/09/19 11:30 96.8 F L 09/09/19 09:00 98.4 F 09/09/19 08:05 81 09/09/19 07:33 93 L 09/09/19 05:17 97.8 F Weight Weight 175 lb 3.2 oz Most Recent Monitor Data Heart Rate from ECG 82 NIBP 96/75 NIBP BP-Mean 82 Respiration from ECG 17 SpO2 71 I&O: 09/08/19 09/09/19 09/10/19 06:59 06:59 06:59 Intake Total 160 350 Output Total 1225 600 Balance -1065 -250 Result Diagrams: 09/09/19 03:24 09/09/19 03:24 Hospitalist ROS - Review of Systems Constitutional: denies: fever, chills - Medication Medications: Active Medications Generic Name Dose Route Start Last Admin Trade Name Freq PRN Reason Stop Dose Admin Aspirin 81 mg 09/09/19 09:00 09/09/19 08:05 Ecotrin PO 81 mg DAILY [facility]ID Administration Carvedilol 3.125 mg 09/08/19 09:00 09/09/19 08:05 Coreg PO 3.125 mg BID [facility]ID Administration Enoxaparin Sodium 30 mg 09/08/19 09:00 09/09/19 08:05 Lovenox SC 30 mg 0900 [facility] Administration Famotidine 20 mg 09/09/19 09:00 09/09/19 08:05 Pepcid SLOW IVP 20 mg DAILY [facility] Administration Furosemide 40 mg 09/08/19 14:00 09/09/19 14:19 Lasix SLOW IVP 40 mg 0600,1400 [facility]ID Administration Lisinopril 2.5 mg 09/08/19 09:00 09/09/19 08:05 Zestril PO 2.5 mg DAILY [facility] Administration Nitroglycerin 0.5 inch 09/08/19 14:00 09/09/19 14:19 Nitro-Bid 2% Ointment TOP 0.5 inch Q8HR [facility]ID Administration - Exam General Appearance: NAD, awake alert Eye: PERRL, anicteric sclera ENT: normocephalic atraumatic, no oropharyngeal lesions Neck: no carotid bruit Respiratory: CTAB, rales Respiratory - other findings: on 2L of oxygen Gastrointestinal: soft, non-tender, non-distended Extremities: no cyanosis, no clubbing, no edema Hosp A/P - Plan ECHO: EF 15-20% Chest X ray 09/08: significant pulmonary edema This is a 78 year old female patient who presented with acute systolic CHF requring BIPAp Acute hypoxic respiratory failure secondary to systolic CHF - chest X ray shows marked pulmonary edema on 09/08. Given 80 mg po lasix and now on 40 mg IV bid. ECHO with EF 15-20% - oxygen to maintain sat > 92% - continue aspirin, coreg, lisinopril - troponin elevated, on evidence of chest pain. No wall motion abnormalities. BRODY - improving. Continue diuretics Acute encephalopathy - may have some dementia at baseline per nursing - check UA - increase levothyroxine dose Hypothyroidism - TSH 96, free T4 low. Will increase levothyroxine to 125 mcg Atrial fibrillation - continue coreg and digoxin Hypertension - continue lisinopril and coreg Code status: cardiac only
[2019-09-09] MEDS ORDERED: Digoxin 0.125 MG TAB PO SCH (16:15)
[2019-09-09 17:22] LABS: RBC/HPF 0-3 HPF (0-3); Squamous Epithelial 0-3 HPF (0-3); WBC/HPF 0-3 HPF (0-3)
[2019-09-09 17:23] LABS: Bacteria/HPF 1+ HPF (None Seen)
[2019-09-10] MEDS: Nitroglycerin 2% Ointment 1 INCH/1 GM Packet TOP SCH ×3 (05:54→22:05)
[2019-09-10] MEDS: Furosemide 40 MG/4 ML VIAL SLOW IVP SCH ×2 (05:54→14:34)
[2019-09-10] MEDS ORDERED: Levothyroxine Sodium 125 MCG TAB PO SCH (06:00)
[2019-09-10] MEDS: Aspirin 81 mg Enteric Coated Tablet PO SCH (08:44)
[2019-09-10] MEDS: Lisinopril 5 MG TAB PO SCH (08:46)
[2019-09-10] MEDS: Enoxaparin Sodium 30 MG/0.3 ML SYRINGE SC SCH (08:47)
[2019-09-10] MEDS: Carvedilol 3.125 MG TAB PO SCH ×2 (08:47→22:05)
[2019-09-10] MEDS: Famotidine/PF 20 mg/2ml Vial SLOW IVP SCH (08:48)
[2019-09-10] MEDS ORDERED: Digoxin 0.125 MG TAB PO SCH (09:00)
--- NOTE | 2019-09-10 09:37 | RAD ---
EXAM: XR Chest 1 View Portable PROVIDED CLINICAL HISTORY: Pulmonary edema COMPARISON: 09/08/2019 FINDINGS: Cardiac silhouette remains enlarged. Atherosclerosis is again noted. Interval improvement in bilatera l airspace disease with persistent patchy airspace disease involving right upper and lower lung zones. No evidence for large pleural effusion. No evidence for pneumothorax. IMPRESSION: Improvement in bilateral airspace disease.
--- NOTE | 2019-09-10 11:23 | PRG ---
DATE OF SERVICE: 09/10/2019 SUBJECTIVE: Ms. Lopez has no new complaints. She has been moved out of the intermediate care unit. Chest radiograph shows dramatic improvement of her pulmonary edema. OBJECTIVE: VITAL SIGNS: She is afebrile. Heart rate in the 70s, respiratory rates in the teens, oximetry is now 96 on room air, and blood pressure 108/91. Her exam is essentially unchanged. LABORATORY DATA: Creatinine is 1.46 yesterday, there is no lab today. Intake and output recorded as positive 240, but I am not sure that this is accurate, because she had 3 unmeasured voids. IMPRESSION: Congestive heart failure clinically and radiographically improving. We will sign off. Job ID: [id number]
--- NOTE | 2019-09-10 11:41 | PDOC.HOSPP ---
- Subjective Encounter Date: 09/10/19 Encounter Time: 11:39 Subjective: CC: f/u CHF Patient is doing better. She has mild shortness of breath, no significant cough or congestion. The patient says she is "dying to get out of bed." She lives at home with her . She says she stopped taking levothyroxine months ago because her doctor didn't re-order it. She is unclear as to what her home medications are, but says she usually takes them herself or her gives them to her. Patient is oriented to date and place today - Objective Vital Signs & Weight: Vital Signs (12 hours) Temp Pulse Resp BP Pulse Ox 09/10/19 08:46 70 09/10/19 08:44 70 09/10/19 08:38 96 09/10/19 07:12 97.4 F L 60 16 108/91 H 96 09/10/19 05:19 94 L 09/10/19 03:51 97.6 F 62 18 101/65 94 L 09/09/19 23:50 98.3 F 63 16 102/69 93 L Weight Weight 179 lb 8 oz Most Recent Monitor Data Heart Rate from ECG 78 NIBP 107/65 NIBP BP-Mean 79 Respiration from ECG 22 SpO2 92 I&O: 09/09/19 09/10/19 09/11/19 06:59 06:59 06:59 Intake Total 160 840 Output Total 1225 600 Balance -1065 240 Result Diagrams: 09/09/19 03:24 09/09/19 03:24 Hospitalist ROS - Review of Systems Constitutional: denies: fever, chills Respiratory: denies: cough, dry Cardiovascular: denies: chest pain, palpitations - Medication Medications: Active Medications Generic Name Dose Route Start Last Admin Trade Name Freq PRN Reason Stop Dose Admin Aspirin 81 mg 09/09/19 09:00 09/10/19 08:44 Ecotrin PO 81 mg DAILY [facility]ID Administration Carvedilol 3.125 mg 09/08/19 09:00 09/10/19 08:47 Coreg PO 3.125 mg BID [facility]ID Administration Digoxin 0.125 mg 09/10/19 09:00 09/10/19 08:44 Lanoxin PO 0.125 mg DAILY [facility]ID Administration Enoxaparin Sodium 30 mg 09/08/19 09:00 09/10/19 08:47 Lovenox SC 30 mg 0900 [facility] Administration Famotidine 20 mg 09/09/19 09:00 09/10/19 08:48 Pepcid SLOW IVP 20 mg DAILY [facility] Administration Furosemide 40 mg 09/08/19 14:00 09/10/19 05:54 Lasix SLOW IVP 40 mg 0600,1400 [facility]ID Administration Lisinopril 2.5 mg 09/08/19 09:00 09/10/19 08:46 Zestril PO 2.5 mg DAILY [facility]ID Administration Nitroglycerin 0.5 inch 09/08/19 14:00 09/10/19 05:54 Nitro-Bid 2% Ointment TOP 0.5 inch Q8HR [facility]ID Administration - Exam General Appearance: NAD, awake alert Eye: PERRL, anicteric sclera ENT: normocephalic atraumatic, no oropharyngeal lesions Neck: supple, symmetric, no JVD Heart: RRR, no murmur, no gallops, no rubs Respiratory - other findings: mild wheeze at right lung base, overall clear Gastrointestinal: soft, non-tender, non-distended, normal bowel sounds Hosp A/P - Plan ECHO: EF 15-20% Chest X ray 09/08: significant pulmonary edema This is a 78 year old female patient who presented with acute systolic CHF requring BIPAp #Acute hypoxic respiratory failure secondary to systolic CHF #AFib #Hypertension - chest X ray shows marked pulmonary edema on 09/08. Given 80 mg po lasix and now on 40 mg IV bid. ECHO with EF 15-20%. Repeat chest X Ray 09/10 shows improvement - wean oxygen to maintain sat > 92% - continue aspirin, coreg, lisinopril, digoxin for now. Will obtain records with regards to patient's last ECHO and outpatient meds. Pharmacy unable to verify if patient was on digoxin, spironolactone and lisinopril - troponin elevated, on evidence of chest pain. No wall motion abnormalities. Per cardiology, no further work up needed to be done. - resumed levothyroxine BRODY - improving to 1.47 Continue diuretics - UA unremarkable Acute metabolic encephalopathy -resolved - may have some dementia at baseline per nursing -UA shows no UTI - resumed levothyroxine with improvement Hypothyroidism - TSH 96, free T4 low. Patient was not taking levothyroxine at home - will decrease dose back to 100 levothyroxine mcg Dispo: may need assisted living on discharge Code status: cardiac only
--- NOTE | 2019-09-10 18:57 | PDOC.CPN ---
- Subjective Date: 09/10/19 Time: 19:05 Interval history: The pt seen and examined. No overnight events. No cardiac complaints. - Objective Allergies/Adverse Reactions: Allergies Allergy/AdvReac Type Severity Reaction Status Date / Time codeine AdvReac Mild Nausea Verified 09/08/19 19:51 Visit Medications: Current Medications Acetaminophen (Tylenol) 650 mg PO Q4H PRN PRN Reason: Headache/Fever/Mild Pain (1-3) Aspirin (Ecotrin) 81 mg PO DAILY [facility] Last Admin: 09/10/19 08:44 Dose: 81 mg Carvedilol (Coreg) 3.125 mg PO BID [facility] Last Admin: 09/10/19 08:47 Dose: 3.125 mg Digoxin (Lanoxin) 0.125 mg PO DAILY [facility] Last Admin: 09/10/19 08:44 Dose: 0.125 mg Enoxaparin Sodium (Lovenox) 30 mg SC 0900 [facility] Last Admin: 09/10/19 08:47 Dose: 30 mg Famotidine (Pepcid) 20 mg SLOW IVP DAILY [facility] Last Admin: 09/10/19 08:48 Dose: 20 mg Furosemide (Lasix) 40 mg SLOW IVP 0600,1400 [facility] Last Admin: 09/10/19 14:34 Dose: 40 mg Hydralazine HCl (Apresoline) 10 mg SLOW IVP Q4H PRN PRN Reason: SBP > 180 and HR < 70 Levothyroxine Sodium (Synthroid) 100 mcg PO 0600 [facility] Lisinopril (Zestril) 2.5 mg PO DAILY [facility] Last Admin: 09/10/19 08:46 Dose: 2.5 mg Nitroglycerin (Nitro-Bid 2% Ointment) 0.5 inch TOP Q8HR [facility] Last Admin: 09/10/19 14:34 Dose: 0.5 inch Vital Signs & Weight: Vital Signs Temp Pulse Resp BP Pulse Ox 09/10/19 14:57 98 F 66 16 100/70 94 L 09/10/19 11:15 97.6 F 62 18 92 L 09/10/19 08:46 70 09/10/19 08:44 70 09/10/19 08:38 96 09/10/19 07:12 97.4 F L 60 16 108/91 H 96 Weight 179 lb 8 oz - Quality Measures Condition: Heart Failure CV meds: Beta Emily: Yes, QUINTON/ARB: Yes, ASA: Yes - Physical Exam General: no apparent distress, other (self and place) Cardiac: regular rate and rhythm Lungs: decreased breath sounds Extremities: no edema - Labs Result Diagrams: 09/09/19 03:24 09/09/19 03:24 Troponin/CKMB CK-MB (CK-2) 4.2 ng/mL (0-6.6) 09/08/19 06:02 Troponin I 0.129 ng/mL (< 0.028) H 09/08/19 11:26 - Assessment/Plan Assessment/Plan: 1. Acute on Chronic Systolic HF: improving after diuresis. Continue diuretics. 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 CMY with EF 15-20% on : Cont. Medical treatment. She is not a candidate for an AICD. 3. Prox afib - well controlled HR; on Coreg and ASA 81mg qd; Holding Digoxin for now due to BRODY; not on OAC due to high risk of fall 2/2 deconditioning and dementia 4. Hx. of Rt breast cancer. reportedly stable. 5. Dementia: She is not able to care for herslf and her also is sick and not able to adequately care for her. 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 6. BRODY vs CKD - improving 7. Hypothyroidism - managed by PCP LAYNE reviewed * Echo on 09/09/2019 with EF 15-20%, mild-mod dilated LA, mild-mod MR, mild AR, TR, and ME * Probably should have discussion about palliative care or hospice. Pt. seen and eval. by me. I agree with the A/P by the PIZZA COOK mary
[2019-09-11] MEDS: Acetaminophen 325 MG TAB PO PRN ×2 (03:00→09:52)
[2019-09-11 05:08] LABS: Hemoglobin 13.1 g/dL (12.0-16.0); Mean Corpuscular HGB CONC 32.6 g/dL (32.0-36.0); Mean Corpuscular Hemoglobin 30.4 pg (27.0-31.0); Mean Corpuscular Volume 93.3 fL (78.0-98.0); Platelet Count 247 thou/uL (130-400); RBC Distribution Width 13.8 % (11.5-14.5); Red Blood Cell (RBC) Count 4.31 mill/uL (4.20-5.40); White Blood Cell (WBC) Count 5.5 thou/uL (4.8-10.8)
[2019-09-11 05:33] LABS: Anion Gap 15 mmol/L (10-20); BUN (Urea Nitrogen) 30 mg/dL (9.8-20.1); Calc. Creatinine Clearance 40 mL/min (70-130); Calcium 8.9 mg/dL (7.8-10.44); Carbon Dioxide 30 mmol/L (23-31); Chloride 96 mmol/L (98-107); Estimated GFR-MDRD 33; Glucose 91 mg/dL (83-110); Potassium 3.3 mmol/L (3.5-5.1); Sodium 138 mmol/L (136-145)
[2019-09-11] MEDS: Levothyroxine Sodium 100 MCG TAB PO SCH (06:41)
[2019-09-11] MEDS: Furosemide 40 MG/4 ML VIAL SLOW IVP SCH (06:41)
[2019-09-11] MEDS: Aspirin 81 mg Enteric Coated Tablet PO SCH (08:12)
[2019-09-11] MEDS: Famotidine/PF 20 mg/2ml Vial SLOW IVP SCH (08:12)
[2019-09-11] MEDS: Enoxaparin Sodium 30 MG/0.3 ML SYRINGE SC SCH (08:12)
[2019-09-11] MEDS: Lisinopril 5 MG TAB PO SCH (08:12)
[2019-09-11] MEDS: Carvedilol 3.125 MG TAB PO SCH ×2 (08:13→22:40)
[2019-09-11] MEDS ORDERED: Potassium Chloride 20 MEQ TAB PO SCH (09:45)
--- NOTE | 2019-09-11 12:23 | PDOC.CPN ---
- Subjective Date: 09/11/19 Time: 12:24 Interval history: The pt seen and examined. No overnight events. No cardiac complaints. - Objective Allergies/Adverse Reactions: Allergies Allergy/AdvReac Type Severity Reaction Status Date / Time codeine AdvReac Mild Nausea Verified 09/08/19 19:51 Visit Medications: Current Medications Acetaminophen (Tylenol) 650 mg PO Q4H PRN PRN Reason: Headache/Fever/Mild Pain (1-3) Last Admin: 09/11/19 09:52 Dose: 650 mg Aspirin (Ecotrin) 81 mg PO DAILY [facility] Last Admin: 09/11/19 08:12 Dose: 81 mg Carvedilol (Coreg) 3.125 mg PO BID [facility] Last Admin: 09/11/19 08:13 Dose: 3.125 mg Enoxaparin Sodium (Lovenox) 30 mg SC 0900 [facility] Last Admin: 09/11/19 08:12 Dose: 30 mg Famotidine (Pepcid) 20 mg SLOW IVP DAILY [facility] Last Admin: 09/11/19 08:12 Dose: 20 mg Hydralazine HCl (Apresoline) 10 mg SLOW IVP Q4H PRN PRN Reason: SBP > 180 and HR < 70 Levothyroxine Sodium (Synthroid) 100 mcg PO 0600 [facility] Last Admin: 09/11/19 06:41 Dose: 100 mcg Lisinopril (Zestril) 2.5 mg PO DAILY [facility] Last Admin: 09/11/19 08:12 Dose: 2.5 mg Vital Signs & Weight: Vital Signs Temp Pulse Resp BP BP BP Pulse Ox 09/11/19 11:25 97.4 F L 74 17 101/63 96 09/11/19 08:12 61 118/81 09/11/19 07:00 97.2 F L 61 12 118/81 96 09/11/19 03:45 97.7 F 71 2 L 95/55 L 94 L Weight 182 lb 5 oz - Quality Measures Condition: Heart Failure CV meds: Beta Emily: Yes, QUINTON/ARB: Yes, ASA: Yes - Physical Exam General: other (alerted and oriented to self) Neck: supple neck Cardiac: regular rate and rhythm Lungs: clear to auscultation, decreased breath sounds Skin: clear - Labs Result Diagrams: 09/11/19 04:30 01/20/20 04:30 Troponin/CKMB CK-MB (CK-2) 4.2 ng/mL (0-6.6) 09/08/19 06:02 Troponin I 0.129 ng/mL (< 0.028) H 09/08/19 11:26 - Assessment/Plan Assessment/Plan: 1. Acute on Chronic Systolic HF: improving after diuresis. Continue diuretics. 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 CMY with EF 15-20% on : Cont. Medical treatment. She is not a candidate for an AICD. 3. Prox afib - well controlled HR; on Coreg and ASA 81mg qd; Holding Digoxin for now due to BRODY; not on OAC due to high risk of fall 2/2 deconditioning and dementia 4. Hx. of Rt breast cancer. reportedly stable. 5. Dementia: She is not able to care for herslf and her also is sick and not able to adequately care for her. she did not take her medications for several days [employer] RES[employer] BUSINESS SEGMENT LEADER and thus CHF exacerbation. 6. BRODY vs CKD - improving. Creat. is slightly increased and I agree to switch her to po lasix from IV. 7. Hypothyroidism - managed by PCP LAYNE reviewed * Echo on 09/09/2019 with EF 15-20%, mild-mod dilated LA, mild-mod MR, mild AR, TR, and [place] * Probably should have discussion about palliative care or hospice. Will at minimal need rehad or long-term for a while. I will sign off. If anf new cardiac issues will be happy to see her again. If possible she should be evaluated by the heart failure clinic with Dr. Mariscal. Pt. seen and eval. by me. I agree with the A/P by the DIRECTOR HOUSEKEEPING.Still SOB with minimal exertion. This is not surprising with the severe decr. EF. She denies chest pain and overall is somewhat improved. I do not have any additional recommendations.
--- NOTE | 2019-09-11 15:50 | PDOC.HOSPP ---
- Subjective Encounter Date: 09/11/19 Encounter Time: 14:00 Subjective: The patient is doing better. She denies cough, chest congestion. She still has shortness of breath on exertion. She has been weaned down to 1L nasal cannula by nursing. Goal is to wean off if possible Patient states takes care of her at home, but clearly did not give her all of her medications given elevated TSH on admission and heart failure. Patient prefers home but will consider senior living if necessary - Objective Vital Signs & Weight: Vital Signs (12 hours) Temp Pulse Resp BP BP Pulse Ox 09/11/19 11:25 97.4 F L 74 17 101/63 96 09/11/19 08:12 61 118/81 09/11/19 07:00 97.2 F L 61 12 118/81 96 Weight Weight 182 lb 5 oz Most Recent Monitor Data Heart Rate from ECG 78 NIBP 107/65 NIBP BP-Mean 79 Respiration from ECG 22 SpO2 92 I&O: 09/10/19 09/11/19 09/12/19 06:59 06:59 06:59 Intake Total 840 948 130 Output Total 600 1000 300 Balance 240 -52 -170 Result Diagrams: 09/11/19 04:30 09/11/19 04:30 Hospitalist ROS - Review of Systems Constitutional: denies: fever, chills Cardiovascular: denies: chest pain, palpitations - Medication Medications: Active Medications Generic Name Dose Route Start Last Admin Trade Name Freq PRN Reason Stop Dose Admin Acetaminophen 650 mg 09/08/19 08:23 09/11/19 09:52 Tylenol PO 650 mg Q4H PRN Administration Headache/Fever/Mild Pain (1-3) Aspirin 81 mg 09/09/19 09:00 09/11/19 08:12 Ecotrin PO 81 mg DAILY [facility]ID Administration Carvedilol 3.125 mg 09/08/19 09:00 09/11/19 08:13 Coreg PO 3.125 mg BID DAVID Administration Enoxaparin Sodium 30 mg 09/08/19 09:00 09/11/19 08:12 Lovenox SC 30 mg 0900 [facility] Administration Famotidine 20 mg 09/09/19 09:00 09/11/19 08:12 Pepcid SLOW IVP 20 mg DAILY [facility] Administration Levothyroxine Sodium 100 mcg 09/11/19 06:00 09/11/19 06:41 Synthroid PO 100 mcg 0600 [facility] Administration Lisinopril 2.5 mg 09/08/19 09:00 09/11/19 08:12 Zestril PO 2.5 mg DAILY [facility]ID Administration - Exam General Appearance: NAD, awake alert Eye: PERRL, anicteric sclera ENT: normocephalic atraumatic, no oropharyngeal lesions Neck: supple, symmetric, no JVD, no thyromegaly Heart: RRR, no murmur, no gallops, no rubs Respiratory: CTAB Respiratory - other findings: crackles at the base Gastrointestinal: soft, non-tender, non-distended Hosp A/P - Plan ECHO: EF 15-20% Chest X ray 09/08: significant pulmonary edema Chest X ray 09/10: improvement in bilateral edema This is a 78 year old female patient who presented with acute systolic CHF requring BIPAp #Acute hypoxic respiratory failure secondary to systolic CHF #AFib #Hypertension - chest X ray shows marked pulmonary edema on 09/08. Given 80 mg po lasix and now on 40 mg IV bid. ECHO with EF 15-20%. Repeat chest X Ray 09/10 shows improvement. Will transition to lasix 40 mg po bid, but will check if hypokalemia has resolved first - wean oxygen to maintain sat > 92% - continue aspirin, coreg, lisinopril. Hold digoxin due to BRODY - troponin elevated, on evidence of chest pain. No wall motion abnormalities. Per cardiology, no further work up needed to be done. - resumed levothyroxine - PT recommending rehab Hypokalemia - potassium 3.3, will replace with 40 meq potassium and recheck BMP BRODY on CKD - creatinine 1.52, slightly increased - may be her baseline - will hold off on additional IV lasix, switch to lasix 40 mg po bid tonight Acute metabolic encephalopathy -resolved - may have some dementia at baseline per nursing -UA shows no UTI - resumed levothyroxine with improvement Hypothyroidism - TSH 96, free T4 low. Patient was not taking levothyroxine at home -continue levothyroxin 100 mcg Dispo: consult case management for skilled vs rehab, needs home oxygen eval Code status: cardiac only
[2019-09-11 16:24] LABS: Anion Gap 13 mmol/L (10-20); BUN (Urea Nitrogen) 30 mg/dL (9.8-20.1); Calc. Creatinine Clearance 44 mL/min (70-130); Carbon Dioxide 33 mmol/L (23-31); Chloride 96 mmol/L (98-107); Estimated GFR-MDRD 36; Glucose 107 mg/dL (83-110); Sodium 138 mmol/L (136-145)
[2019-09-11] MEDS: Furosemide 40 MG TAB PO SCH (22:40)
[2019-09-12] MEDS: Acetaminophen 325 MG TAB PO PRN (00:15)
[2019-09-12] MEDS: Levothyroxine Sodium 100 MCG TAB PO SCH (06:40)
[2019-09-12] MEDS: Carvedilol 3.125 MG TAB PO SCH (08:12)
[2019-09-12] MEDS: Aspirin 81 mg Enteric Coated Tablet PO SCH (08:12)
[2019-09-12] MEDS: Famotidine/PF 20 mg/2ml Vial SLOW IVP SCH (08:13)
[2019-09-12] MEDS: Furosemide 40 MG TAB PO SCH (08:13)
[2019-09-12] MEDS: Enoxaparin Sodium 30 MG/0.3 ML SYRINGE SC SCH (08:13)
[2019-09-12] MEDS: Lisinopril 5 MG TAB PO SCH (08:13)
[2019-09-12 11:30] VITALS: BP 95/70; TEMP 97.4
--- NOTE | 2019-09-12 15:00 | DIS ---
DATE OF ADMISSION: 09/08/2019 DATE OF DISCHARGE: 09/12/2019 DISCHARGE DIAGNOSES: Acute hypoxic respiratory failure secondary to systolic congestive heart failure, atrial fibrillation, hypertension, hypokalemia, acute kidney injury on chronic kidney disease, acute metabolic encephalopathy, hypothyroidism. CONSULTATIONS: Cardiology with Dr. Liberty Edgar. Also, consultation with Dr. Mehdi Stahl with Pulmonology. PROCEDURES: None. BRIEF HISTORY OF PRESENT ILLNESS: This is a 78-year-old female with a past medical history of hypothyroidism, congestive heart failure, and hypertension, who presented to the emergency room with sudden shortness of breath. She was easing her accessory muscles with respiration. Upon presentation to the ER, she was extremely short of breath and hypoxic. Chest x-ray showed bilateral pulmonary infiltrates. The patient had refused intubation, so she was placed on BiPAP. The patient was initially admitted to the [facility]. HOSPITAL COURSE: Acute hypoxic respiratory failure secondary to systolic CHF with pulmonary edema: The patient was initially diuresed with IV Lasix 40 mg IV b.i.d. Repeat chest x-ray on the showed a marked improvement. She was continued on IV Lasix 40 mg IV b.i.d. and she was transitioned to oral Lasix 40 mg p.o. b.i.d. on the due to a slight increase in her creatinine to 1.52. The patient's repeat creatinine on the had come down to 1.41. The patient's troponin was elevated at 0.126 and peaked at 0.147. Cardiology was consulted. She had an echocardiogram done on the , which showed an EF of 15% to 20% and [id number] MR. Per Cardiology, she was not a candidate for an AICD. The patient was also thought not to be a candidate for anticoagulation due to her dementia and deconditioning. On discharge, she will be sent on Lasix 40 mg p.o. b.i.d., aspirin, and Coreg. Her digoxin will be held due to her renal function. She should follow a 2 L fluid restriction. She should have a repeat chest x-ray done in 2 weeks and a repeat BMP done in a week. Her spironolactone and her Imdur were also discontinued due to low blood pressures. Atrial fibrillation: Her Coreg was decreased to 3.125 mg p.o. twice daily due to low blood pressures. She is not a candidate for anticoagulation as mentioned above. She can follow up as an outpatient. Acute metabolic encephalopathy: The patient was noted to be very encephalopathic while in the ICU. She had a UA done, which showed no evidence of UTI. Her TSH was checked, which was noted to be 96. The patient states that she was not taking her levothyroxine at home. She was resumed on her levothyroxine 100 mcg with improvement. The patient was felt to not be able to take care of herself at home due to some dementia. Her also does not seem to reliably giving her outpatient medications. Therefore, she was assessed for SNF and was approved to go to [facility] today. Acute kidney injury on CKD: The patient presented with a creatinine of 1.25. This initially got worse with IV diuretics to 1.57, but after transitioning to oral diuretics, it has improved to 1.41. The patient can have a repeat BMP done as an outpatient. Hypokalemia: The patient had a potassium of 3.3 on the . Repeat potassium came up to 4.0 on the . DISCHARGE PHYSICAL EXAMINATION: VITAL SIGNS: Temperature 97.4, heart rate 82, respiratory rate 18, O2 saturation is 88% on room air and 91% with 2 L nasal cannula, blood pressure 95/70. GENERAL: The patient is alert, awake, and oriented x3. CARDIOVASCULAR SYSTEM: Irregular rate and rhythm with no murmurs, rubs, or gallops. LUNGS: Slightly diminished breath sounds at the bases. ABDOMEN: Positive bowel sounds. Soft, nontender, nondistended. EXTREMITIES: 1+ lower extremity edema. PERTINENT LABORATORY DATA: CBC on 09/11: Normal. BMP on 09/11: Shows a CO2 of 33, BUN 30, creatinine of 1.41. Troponin I: 0.126, 0.147, 0.129. BNP: 826.9. Free T4: Less than 0.40. TSH: 96.80. PERTINENT IMAGING: Chest x-ray on 09/10: Shows improvement in bilateral airspace disease. Echo on 09/09: Shows EF 15% to 20%, mild to moderately dilated left atrium, mildly enlarged right atrium, [id number] MR, mild AR, mild TR, mild [place]. DISCHARGE CONDITION: Stable to [facility]. She can be discharged without oxygen at rest, however, may require 2 L of oxygen on ambulation. DIET: The patient should be on a 2 g sodium diet with a 2 L fluid restriction. ACTIVITY: As tolerated. DISCHARGE MEDICATIONS: 1. Levothyroxine 100 mcg p.o. daily. 2. Protonix 40 mg p.o. daily. 3. Paroxetine 20 mg p.o. daily. 4. Aspirin 81 mg p.o. daily. 5. Coreg 3.125 mg p.o. b.i.d. 6. Lasix 40 mg p.o. b.i.d. 7. Lisinopril 2.5 mg p.o. daily. DISCHARGE INSTRUCTIONS: The patient should follow up with her PCP in a week and consider following up with flyer repairer, Dr. Edgar, as an outpatient. The patient should have repeat BMP done in a week and a repeat chest x-ray done in 2 weeks. The patient's Coreg was reduced to 3.125 mg p.o. b.i.d. Her hydralazine, spironolactone, and Imdur were discontinued due to soft blood pressures, but this can be re-initiated if her blood pressure increases. Job ID: [id number] [facility]
== END 2019-09-12 16:00 | disposition swing bed (61) | DRG 291 ==
LOC: ERS 04:27 → IMCU/EMU 05:24 → SURG A 09-09 19:57
PROVIDERS: ADMIT Internal Medicine; ATTEND Internal Medicine
DX: I13.0 Hypertensive heart and chronic kidney disease with heart failure and stage 1 through stage 4 chronic kidney disease, or unspecified chronic kidney disease (principal); J96.01 Acute respiratory failure with hypoxia; G93.41 Metabolic encephalopathy; I50.23 Acute on chronic systolic (congestive) heart failure; N17.9 Acute kidney failure, unspecified; Z88.5 Allergy status to narcotic agent; Z88.2 Allergy status to sulfonamides; E03.9 Hypothyroidism, unspecified; F03.90 Unspecified dementia, unspecified severity, without behavioral disturbance, psychotic disturbance, mood disturbance, and anxiety; I42.9 Cardiomyopathy, unspecified; Z85.3 Personal history of malignant neoplasm of breast; I48.0 Paroxysmal atrial fibrillation; E87.6 Hypokalemia; N18.9 Chronic kidney disease, unspecified
CPT/HCPCS: 36415; 36416; 71045; 80048; 81015; 82553; 82805; 83880; 84439; 84443; 85025; 85027; 93306; 93798; 94150; 94660; J1650; J1940; S0028

== ENCOUNTER 2019-10-27 14:33 | Inpatient (IN) | payer MEDICARE, OTHER ==
[2019-10-27 18:48] LABS: Troponin I 0.026 ng/mL (< 0.028)
[2019-10-27 21:50] VITALS: BMI 32.3
[2019-10-27 21:58] LABS: Troponin I 0.026 ng/mL (< 0.028)
[2019-10-27] MEDS ORDERED: hydrALAZINE 20 MG/ML VIAL SLOW IVP PRN (22:30)
[2019-10-27] MEDS ORDERED: Ondansetron PF 4 MG/2 ML Vial IVP PRN (22:30)
[2019-10-27] MEDS ORDERED: Ondansetron ODT 4 MG TAB PO PRN (22:30)
[2019-10-27] MEDS ORDERED: Famotidine 20 MG TAB PO SCH (23:00)
[2019-10-27] MEDS: Acetaminophen 500 MG TAB PO PRN (23:04)
--- NOTE | 2019-10-27 23:41 | HP ---
PRIMARY CARE PROVIDER: Dr. Pinzon in [place], [place]. CHIEF COMPLAINT: Shortness of breath. HISTORY OF PRESENT ILLNESS: This is a 79-year-old female, who initially presented to [facility] complaining of increased shortness of breath which began in the last 24 hours. The patient initially complained of increased nonproductive cough, shortness of breath and history of chronic obstructive pulmonary disease and congestive heart failure with ejection fraction of 15% to 20% by 2D transthoracic echocardiogram, 09/08/2019. The patient was also recently admitted for CHF exacerbation, 09/29/2019. The patient states she has been compliant with her chronic medication regimen and denies any specific changes. The patient denied any travel history, exposures, or documented fever. The patient denies any home supplemental oxygen use or family members with similar symptoms. The patient denied any specific chest pain, left arm discomfort or back pain. In the emergency room, the patient underwent general evaluation including chest imaging showing pulmonary edema. EKG showed nonspecific T-wave changes. The patient was placed on transdermal nitroglycerin in addition to given Lasix 40 mg IV push, magnesium sulfate and DuoNeb therapy. The patient was also initially placed on CPAP noninvasive mechanical ventilation and improved with supportive management. PAST MEDICAL HISTORY: 1. Chronic systolic congestive heart failure with ejection fraction 15% to 20%. 2. Hyperthyroidism. 3. Chronic atrial fibrillation. 4. Breast cancer. 5. Chronic kidney disease. 6. Dementia. 7. History of asthma. PAST SURGICAL HISTORY: 1. Status post hysterectomy. 2. Status post right mastectomy. CURRENT MEDICATIONS: 1. Enteric-coated aspirin 81 mg p.o. daily. 2. Carvedilol 3.125 mg p.o. b.i.d. 3. Lasix 20 mg p.o. b.i.d. 4. DuoNeb 3 mL nebulized q.6 hours p.r.n. 5. Levothyroxine 100 mcg p.o. daily. 6. Zestril 2.5 mg p.o. daily. 7. Paroxetine 20 mg p.o. daily. ALLERGIES: TO SULFA AND CODEINE. FAMILY HISTORY: No inheritable diseases per patient report. SOCIAL HISTORY: Resides in [place], [place]. . No current alcohol, tobacco, or illicit drug use. REVIEW OF SYSTEMS: CONSTITUTIONAL: Negative for weight loss or gain, ability to conduct usual activities. SKIN: Negative for rash, itching. EYES: Negative for double vision, pain. ENT/MOUTH: Negative for nose bleeding, neck stiffness, pain, tenderness. CARDIOVASCULAR: Negative for palpitations, dyspnea on exertion, orthopnea. RESPIRATORY: Negative for shortness of breath, wheezing, cough, hemoptysis, fever or night sweats. GASTROINTESTINAL: Negative for poor appetite, abdominal pain, heartburn, nausea, vomiting, constipation, or diarrhea. GENITOURINARY: Negative for urgency, frequency, dysuria, nocturia. MUSCULOSKELETAL: Negative for pain, swelling. NEUROLOGIC/PSYCHIATRIC: Negative for anxiety, depression. ALLERGY/IMMUNOLOGIC: Negative for skin rash, bleeding tendency. Otherwise negative except as stated per HPI. PHYSICAL EXAMINATION: VITAL SIGNS: On admission, blood pressure 165/107, pulse 109, respiratory rate 26, temperature 98 degrees Fahrenheit, O2 saturation 100% on continuous positive airway pressure. GENERAL APPEARANCE: This is a 79-year-old female, alert and oriented x3, pleasant, responsive, in no acute distress. HEENT: Pupils are equal, round, reactive to light and accommodation. Extraocular muscles are intact. No scleral icterus. No conjunctival injection. Nares patent. OP is clear. Teeth in fair repair. NECK: Supple. No cervical adenopathy. No thyromegaly. No carotid bruits. No JVD appreciated. Cervical spine with full active and passive range of motion. No meningeal signs noted. CHEST: Diminished breath sounds in the bases bilaterally with bibasilar crackles. CARDIOVASCULAR: S1-S2 with irregular rate and rhythm. Distant heart sounds. ABDOMEN: Obese, soft, nontender, and nondistended. Bowel sounds are positive in all 4 quadrants. There is no hepatosplenomegaly. No abdominal bruits. No rebound or guarding appreciated. EXTREMITIES: Warm and dry with fair turgor. Mild edema to the ankle region bilaterally. Pulses palpable distally at the dorsalis pedis, posterior tibial, and popliteal arteries bilaterally. Capillary refill less than 2 seconds. NEUROLOGIC: Cranial nerves 2 through 12 are grossly intact. No focal or lateralizing signs appreciated. PERTINENT LABORATORY AND X-RAY FINDINGS: Sodium 140, potassium 3.7, chloride 103, CO2 of 26, BUN 16, creatinine 0.91, estimated GFR of 60, glucose 115, calcium 9.7. LFTs within normal limits. BNP 2579, previously noted 551, 09/27/2019. Troponin I ranged between 0.026 to 0.040. TSH on 09/08/2019, 96.8. Free T4 of 0.40. CBC showed a white blood cell count of 6.1, hemoglobin 12, hematocrit 41, platelet count 282 with 78% neutrophils. Portable chest x-ray dated 10/27/2019 by my interpretation shows bilateral pulmonary edema. EKG dated 10/27/2019 by my interpretation shows sinus tachycardia with heart rates in the low 100s. Premature ventricular contractions noted. Attenuated R-waves in the precordial leads. Normal axis. ASSESSMENT AND PLAN: 1. Acute on chronic systolic congestive heart failure exacerbation. The patient will be admitted to the telemetry unit. We will continue Lasix 40 mg IV q.12 hours. Monitor daily weight, and intake and output. Repeat BNP in the a.m. Consider Cardiology evaluation if clinically not improving in the next 24 hours. Recent 2D transthoracic echocardiogram 09/09/2019, showed ejection fraction of 15% to 20%. 2. Elevated troponin I. Suspect demand ischemia in the context of congestive heart failure exacerbation. Continue to monitor clinical response as outlined in number one. 3. Hypertensive urgency. We will continue home blood pressure regimen. Serial blood pressure monitoring. Hydralazine 10 mg IV q.4 hours p.r.n. systolic greater than equal to 170. 4. Hypothyroidism. Check TSH and free T4 level in the a.m. Continue levothyroxine 100 mcg daily. 5. Chronic kidney disease stage 3. Avoid nephrotoxic agents and limit contrast exposure. Repeat creatinine in the a.m. 6. Prophylaxis. SCDs while in bed. Pepcid 20 mg p.o. b.i.d. 7. Code status is full. Surrogate medical decision maker is the patient's spouse. Job ID: [id number]
[2019-10-28 05:04] LABS: Band 2 % (5-11); Elliptocytes SLIGHT = 2-5 cells (100X) (0-1/hpf); Hemoglobin 11.3 g/dL (12.0-16.0); Hypochromia SLIGHT = 6-15 cells (100X) (0-5/hpf); Lymphocytes 9 % (21-51); MDiff Complete? YES; Mean Corpuscular HGB CONC 33.3 g/dL (32.0-36.0); Mean Corpuscular Hemoglobin 31.9 pg (27.0-31.0); Mean Corpuscular Volume 95.8 fL (78.0-98.0); Mean Platelet Volume 8.3 fL (7.4-10.4); Monocytes 2 % (0-10); Neutrophil 87 % (42-75); Platelet Count 266 thou/uL (130-400); Platelet Morphology Comment Appears Adequate; RBC Distribution Width 14.3 % (11.5-14.5); Red Blood Cell (RBC) Count 3.55 mill/uL (4.20-5.40); White Blood Cell (WBC) Count 6.3 thou/uL (4.8-10.8)
[2019-10-28 05:26] LABS: Anion Gap 11 mmol/L (10-20); BUN (Urea Nitrogen) 17 mg/dL (9.8-20.1); Calc. Creatinine Clearance 59 mL/min (70-130); Carbon Dioxide 30 mmol/L (23-31); Chloride 101 mmol/L (98-107); Estimated GFR-MDRD 56; Glucose 129 mg/dL (83-110); Magnesium 2.1 mg/dL (1.6-2.6); Potassium 3.8 mmol/L (3.5-5.1); Sodium 138 mmol/L (136-145)
[2019-10-28 05:46] LABS: Free T4 (Free Thyroxine) 0.63 ng/dL (0.70-1.48); Thyroid Stimulating Hormone 11.5625 uIU/mL (0.35-4.94)
[2019-10-28] MEDS: Furosemide 40 MG/4 ML VIAL SLOW IVP SCH ×2 (06:32→14:45)
[2019-10-28] MEDS: Aspirin Chewable 81 MG TAB PO SCH (09:11)
[2019-10-28] MEDS ORDERED: Lisinopril 2.5 MG TAB PO SCH (11:45)
[2019-10-28] MEDS ORDERED: Levothyroxine Sodium 100 MCG TAB PO SCH (11:45)
--- NOTE | 2019-10-28 11:45 | PDOC.HOSPP ---
- Subjective Encounter Date: 10/28/19 Encounter Time: 11:50 Subjective: Patient without complaints this AM. Denies SOB. States she knows she is in the hospital and had SOB prior to coming in. Thinks she is in [place] right now. No pain. - Objective Vital Signs & Weight: Vital Signs (12 hours) Temp Pulse Resp BP Pulse Ox 10/28/19 08:12 99.3 F 93 19 124/80 100 10/28/19 03:42 97.4 F L 80 17 120/69 99 Weight Weight 172 lb I&O: 10/27/19 10/28/19 10/29/19 06:59 06:59 07:59 Intake Total 120 Output Total 700 Balance -580 Result Diagrams: 10/28/19 04:34 10/28/19 04:34 Hospitalist ROS - Review of Systems Constitutional: denies: fever, chills Respiratory: denies: cough, shortness of breath Cardiovascular: denies: chest pain, palpitations Gastrointestinal: denies: nausea, vomiting, abdominal pain - Medication Medications: Active Medications Generic Name Dose Route Start Last Admin Trade Name Freq PRN Reason Stop Dose Admin Acetaminophen 1,000 mg 10/27/19 22:30 10/27/19 23:04 Tylenol PO 1,000 mg Q6H PRN Administration Mild Pain (1-3) Aspirin 81 mg 10/28/19 09:00 10/28/19 09:11 Aspirin Chewable PO 81 mg DAILY DAVID Administration Furosemide 40 mg 10/28/19 06:00 10/28/19 06:32 Lasix SLOW IVP 40 mg 0600,1400 DAVID Administration - Exam General Appearance: NAD, awake alert ENT: moist mucosa Heart: RRR, no murmur, no gallops, no rubs Respiratory: CTAB, no wheezes, no rales, no ronchi Gastrointestinal: soft, non-tender, non-distended, normal bowel sounds Extremities: no edema Psychiatric: normal affect, normal behavior, oriented to person. negative: oriented to place, oriented to time Hosp A/P (1) Acute on chronic systolic (congestive) heart failure Code(s): I50.23 - ACUTE ON CHRONIC SYSTOLIC (CONGESTIVE) HEART FAILURE Status : Acute (2) Acute respiratory failure with hypoxia Code(s): J96.01 - ACUTE RESPIRATORY FAILURE WITH HYPOXIA Status: Acute (3) HTN (hypertension) Code(s): I10 - ESSENTIAL (PRIMARY) HYPERTENSION Status: Chronic Qualifiers: Hypertension type: essential hypertension Qualified Code(s): I10 - Essential (primary) hypertension Plan: Hypertensive urgency resolved with diuresis and medication (4) Asthma Code(s): J45.909 - UNSPECIFIED ASTHMA, UNCOMPLICATED Status: Chronic (5) Hypothyroidism Code(s): E03.9 - HYPOTHYROIDISM, UNSPECIFIED Status: Acute Plan: improved since last hospitalization, still a bit low (6) Chronic atrial fibrillation Code(s): I48.20 - CHRONIC ATRIAL FIBRILLATION, UNSPECIFIED Status: Chronic (7) Chronic kidney disease, stage 2 (mild) Code(s): N18.2 - CHRONIC KIDNEY DISEASE, STAGE 2 (MILD) Status: Chronic (8) Dementia Code(s): F03.90 - UNSPECIFIED DEMENTIA WITHOUT BEHAVIORAL DISTURBANCE Status: Chronic - Plan Continue IV lasix, diuresing well. Restarting home medications. No chronic anticoagulation due to dementia, possible falls Patient states she drinks iced tea all the time, doubt she is compliant with fluid restriction at home DVT proph: SCDs
[2019-10-28] MEDS: Carvedilol 3.125 MG TAB PO SCH (22:22)
[2019-10-28] MEDS: Famotidine 20 MG TAB PO SCH (22:23)
[2019-10-28] MEDS: Acetaminophen 500 MG TAB PO PRN (22:23)
[2019-10-29] MEDS: Furosemide 40 MG/4 ML VIAL SLOW IVP SCH ×2 (05:28→14:26)
[2019-10-29] MEDS ORDERED: Levothyroxine Sodium 100 MCG TAB PO SCH (06:00)
[2019-10-29] MEDS: Lisinopril 5 MG TAB PO SCH (09:20)
[2019-10-29] MEDS: Aspirin Chewable 81 MG TAB PO SCH (09:20)
[2019-10-29] MEDS: PARoxetine 20 MG TAB PO SCH (09:20)
[2019-10-29] MEDS: Carvedilol 3.125 MG TAB PO SCH ×2 (09:20→20:50)
[2019-10-29 10:36] LABS: BUN (Urea Nitrogen) 21 mg/dL (9.8-20.1); Calc. Creatinine Clearance 56 mL/min (70-130); Calcium 8.7 mg/dL (7.8-10.44); Estimated GFR-MDRD 52; Glucose 126 mg/dL (83-110)
[2019-10-29 10:46] LABS: Chloride 93 mmol/L (98-107); Sodium 138 mmol/L (136-145)
[2019-10-29 10:48] LABS: Anion Gap 13 mmol/L (10-20); Carbon Dioxide 35 mmol/L (23-31)
[2019-10-29 10:53] LABS: Potassium 2.9 mmol/L (3.5-5.1)
[2019-10-29] MEDS ORDERED: Potassium Chloride 20 MEQ TAB PO SCH ×2 (11:00→16:00)
[2019-10-29] MEDS ORDERED: Potassium Chloride 10 MEQ in Premix Bag 1 BAG IVPB SCH (11:15)
[2019-10-29] MEDS: cefTRIAXone\\ROCEPHIN 1 GM in Sodium Chloride 0.9% 100 ML IVPB SCH (11:39)
[2019-10-29] MEDS: Acetaminophen 500 MG TAB PO PRN ×2 (12:01→20:50)
--- NOTE | 2019-10-29 12:07 | CON ---
DATE OF CONSULTATION: 10/29/2019 REASON FOR CONSULTATION: Heart failure. PRIMARY BIOFUELS TECHNOLOGY MANAGER: Liberty Edgar MD HISTORY OF PRESENT ILLNESS: Ms. Lopez is a pleasant 79-year-old white female, who comes to the hospital for increased shortness of breath. She was evaluated in the ER and found to be in what appeared to be acute congestive heart failure with a very elevated BNP, so she was admitted, placed on IV Lasix. She is already diuresed about 2 L and is already feeling much better. She is pleasantly demented, but she tells me that her breathing is close to normal. She denies any chest pain, tightness, or pressure. PAST MEDICAL HISTORY: 1. History of what appears to be nonischemic cardiomyopathy, last echocardiogram was on August of this year with an EF of 15% to 20%. 2. Hypothyroidism. 3. Hypertension. 4. Breast cancer. 5. Anxiety. PAST SURGICAL HISTORY: 1. Right mastectomy 3 years ago. 2. Eye surgery. 3. Hysterectomy. FAMILY HISTORY: Heart disease in the 40s for her mother. SOCIAL HISTORY: No alcohol, tobacco, or drugs. She quit smoking in . ALLERGIES: CODEINE. OUTPATIENT MEDICATIONS: 1. Coreg 3.125 b.i.d. 2. Aspirin 81 a day. 3. Tylenol p.r.n. 4. Paroxetine 20 a day. 5. Lisinopril 2.5 a day. 6. Levothyroxine 100 mcg a day. 7. DuoNebs. 8. Lasix 20 mg twice a day. ALLERGIES: SULFA DRUGS AND CODEINE. REVIEW OF SYSTEMS: A 12-point review of systems was done and was all negative unless stated in the history of present illness. PHYSICAL EXAMINATION: VITAL SIGNS: Temperature 97.9, 93% on 1 L nasal cannula, respiratory rate 16, and blood pressure 114/56. GENERAL: Awake, alert, oriented to person and place, but not to time, and in no distress. HEENT: Normocephalic, atraumatic. NECK: Supple. LUNGS: Mild crackles at the bases. CARDIOVASCULAR: S1 and S2. No S3 or S4. ABDOMEN: Soft. Positive bowel sounds. EXTREMITIES: Trace edema. SKIN: Warm and dry. LABORATORY DATA: Laboratory work was reviewed. Sodium is 138; potassium was 3.8, down to 2.9 after Lasix; anion gap of 13; BUN of 21; creatinine 1.03; and GFR of 52. BNP was 1865. Procalcitonin was normal. Free T4 was 0.6, which is low and a TSH was high at 11.5. Troponin was negative x3. EKG was reviewed. ASSESSMENT: 1. Acute on chronic systolic heart failure. 2. Dementia. 3. History of atrial fibrillation, currently in sinus rhythm. 4. Hypothyroidism. 5. Hypertension. PLAN: 1. Continue IV Lasix today. 2. Switch to p.o. dose tomorrow. 3. Most likely home in the next 24 to 48 hours. 4. There has been conversation about AICD placement in the past and this is on hold for now. Thank you for letting us to participate in the care of your patient. Dr. Edgar, her primary heavy forger, will follow up in the morning. Job ID: [id number]
[2019-10-29] MEDS: Famotidine 20 MG TAB PO SCH (20:50)
--- NOTE | 2019-10-29 21:22 | PDOC.HOSPP ---
- Subjective Encounter Date: 10/29/19 Encounter Time: 10:15 Subjective: pt up in bed no complains. she denies any cp. - Objective Vital Signs & Weight: Vital Signs (12 hours) Temp Pulse Resp BP BP Pulse Ox 10/29/19 18:53 16 93 L 10/29/19 16:00 97.9 F 102 H 16 108/70 98 10/29/19 14:01 82 16 94 L 10/29/19 11:45 98.1 F 105 H 16 114/63 95 Weight Weight 172 lb 8 oz I&O: 10/28/19 10/29/19 10/30/19 05:59 06:59 06:59 Intake Total 1250 Output Total 1025 Balance 225 Result Diagrams: 10/28/19 04:34 10/29/19 09:57 Hospitalist ROS - Review of Systems Cardiovascular: denies: chest pain, palpitations, orthopnea, paroxysmal noc. dyspnea, edema, light headedness, other Gastrointestinal: denies: nausea, vomiting, abdominal pain, diarrhea, constipation, melena, hematochezia, other Genitourinary: denies: dysuria, frequency, incontinence, hematuria, retention, other - Medication Medications: Active Medications Generic Name Dose Route Start Last Admin Trade Name Freq PRN Reason Stop Dose Admin Acetaminophen 1,000 mg 10/27/19 22:30 10/29/19 20:50 Tylenol PO 1,000 mg Q6H PRN Administration Mild Pain (1-3) Albuterol/Ipratropium 3 ml 10/28/19 19:00 10/29/19 18:53 Duoneb NEB 3 ml [id number] DAVID Administration Aspirin 81 mg 10/28/19 09:00 10/29/19 09:20 Aspirin Chewable PO 81 mg DAILY DAVID Administration Carvedilol 3.125 mg 10/28/19 21:00 10/29/19 20:50 Coreg PO 3.125 mg BID DAVID Administration Famotidine 20 mg 10/28/19 21:00 10/29/19 20:50 Pepcid PO 20 mg 2100 DAVID Administration Furosemide 40 mg 10/28/19 06:00 10/29/19 14:26 Lasix SLOW IVP 40 mg 0600,1400 DAVID Administration Ceftriaxone Sodium 1 gm/ 100 mls @ 200 mls/hr 10/29/19 10:00 10/29/19 11:39 Sodium Chloride IVPB 100 mls 1000 DAVID Administration Lisinopril 2.5 mg 10/29/19 09:00 10/29/19 09:20 Zestril PO 2.5 mg DAILY DAVID Administration Paroxetine HCl 20 mg 10/29/19 09:00 10/29/19 09:20 Paxil PO 20 mg DAILY DAVID Administration Sodium Chloride 10 ml 10/28/19 21:00 10/29/19 20:51 Flush - Normal Saline IVF 10 ml Q12HR DAVID Administration Sodium Chloride 10 ml 10/28/19 14:08 10/29/19 14:27 Flush - Normal Saline IVF 10 ml PRN PRN Administration Saline Flush - Exam Neck: negative: supple, symmetric, no JVD, no thyromegaly, no lymphadenopathy, no carotid bruit, JVD Heart: negative: RRR, no murmur, no gallops, no rubs, normal peripheral pulses, irregular, diminshed peripheral pulses, murmur present, II/IV, III/IV Respiratory: negative: CTAB, no wheezes, no rales, no ronchi, normal chest expansion, no tachypnea, normal percussion, rales, rhonchi, tachypneic, wheezes Gastrointestinal: negative: soft, non-tender, non-distended, normal bowel sounds , no palpable masses, no hepatomegaly, no splenomegaly, no bruit, no guarding, no rigidity, tender to palpation, distended, diminished bowl sounds, voluntary guarding Extremities: 1+ LE edema Hosp A/P (1) Acute on chronic systolic (congestive) heart failure Code(s): I50.23 - ACUTE ON CHRONIC SYSTOLIC (CONGESTIVE) HEART FAILURE Status : Acute (2) Hypothyroidism Code(s): E03.9 - HYPOTHYROIDISM, UNSPECIFIED Status: Acute (3) Chronic atrial fibrillation Code(s): I48.20 - CHRONIC ATRIAL FIBRILLATION, UNSPECIFIED Status: Chronic (4) Dementia Code(s): F03.90 - UNSPECIFIED DEMENTIA WITHOUT BEHAVIORAL DISTURBANCE Status: Chronic (5) V-tach Code(s): I47.2 - VENTRICULAR TACHYCARDIA Status: Acute - Plan will continue iv lasix,she has good output. she will ask her the name of her senior digital designer. she will need AICD given her low ef. will replace electrolytes.
[2019-10-30] MEDS: Furosemide 40 MG/4 ML VIAL SLOW IVP SCH (06:17)
[2019-10-30] MEDS: Levothyroxine Sodium 125 MCG TAB PO SCH (06:17)
[2019-10-30] MEDS: cefTRIAXone\\ROCEPHIN 1 GM in Sodium Chloride 0.9% 100 ML IVPB SCH (08:50)
[2019-10-30] MEDS: Carvedilol 3.125 MG TAB PO SCH ×2 (08:50→21:06)
[2019-10-30] MEDS: Lisinopril 5 MG TAB PO SCH (08:50)
[2019-10-30] MEDS: PARoxetine 20 MG TAB PO SCH (08:50)
[2019-10-30] MEDS: Aspirin Chewable 81 MG TAB PO SCH (08:50)
--- NOTE | 2019-10-30 09:09 | PDOC.HOSPP ---
- Subjective Encounter Date: 10/30/19 Encounter Time: 10:50 Subjective: Patient breathing much better. No complaints. - Objective Vital Signs & Weight: Vital Signs (12 hours) Temp Pulse Resp BP Pulse Ox 10/30/19 08:45 97.9 F 60 16 112/76 94 L 10/30/19 07:30 75 16 10/30/19 04:22 97.7 F 89 16 124/78 99 10/30/19 00:28 88 20 93 L Weight Weight 163 lb 14.4 oz I&O: 10/29/19 10/30/19 10/31/19 06:59 06:59 06:59 Intake Total 1610 Output Total 1240 Balance 370 Result Diagrams: 10/28/19 04:34 10/30/19 09:20 Hospitalist ROS - Review of Systems Constitutional: denies: fever, chills Respiratory: denies: cough, shortness of breath Cardiovascular: denies: chest pain, palpitations Gastrointestinal: denies: nausea, vomiting, abdominal pain - Medication Medications: Active Medications Generic Name Dose Route Start Last Admin Trade Name Freq PRN Reason Stop Dose Admin Acetaminophen 1,000 mg 10/27/19 22:30 10/29/19 20:50 Tylenol PO 1,000 mg Q6H PRN Administration Mild Pain (1-3) Albuterol/Ipratropium 3 ml 10/28/19 19:00 10/30/19 07:30 Duoneb NEB 3 ml [id number] DAVID Administration Aspirin 81 mg 10/28/19 09:00 10/30/19 08:50 Aspirin Chewable PO 81 mg DAILY DAVID Administration Carvedilol 3.125 mg 10/28/19 21:00 10/30/19 08:50 Coreg PO 3.125 mg BID DAVID Administration Famotidine 20 mg 10/28/19 21:00 10/29/19 20:50 Pepcid PO 20 mg 2100 DAVID Administration Ceftriaxone Sodium 1 gm/ 100 mls @ 200 mls/hr 10/29/19 10:00 10/30/19 08:50 Sodium Chloride IVPB 100 mls 1000 DAVID Administration Levothyroxine Sodium 125 mcg 10/30/19 06:00 10/30/19 06:17 Synthroid PO 125 mcg 0600 DAVID Administration Lisinopril 2.5 mg 10/29/19 09:00 10/30/19 08:50 Zestril PO 2.5 mg DAILY DAVID Administration Paroxetine HCl 20 mg 10/29/19 09:00 10/30/19 08:50 Paxil PO 20 mg DAILY DAVID Administration Sodium Chloride 10 ml 10/28/19 21:00 10/30/19 08:50 Flush - Normal Saline IVF 10 ml Q12HR DAVID Administration Sodium Chloride 10 ml 10/28/19 14:08 10/29/19 14:27 Flush - Normal Saline IVF 10 ml PRN PRN Administration Saline Flush - Exam General Appearance: NAD, awake alert ENT: moist mucosa Heart: RRR, no murmur, no gallops, no rubs Respiratory: CTAB, no wheezes, no rales, no ronchi Gastrointestinal: soft, non-tender, non-distended, normal bowel sounds Extremities: no edema Psychiatric: normal affect, not oriented Hosp A/P (1) Acute on chronic systolic (congestive) heart failure Code(s): I50.23 - ACUTE ON CHRONIC SYSTOLIC (CONGESTIVE) HEART FAILURE Status : Acute (2) Acute respiratory failure with hypoxia Code(s): J96.01 - ACUTE RESPIRATORY FAILURE WITH HYPOXIA Status: Acute (3) HTN (hypertension) Code(s): I10 - ESSENTIAL (PRIMARY) HYPERTENSION Status: Chronic Qualifiers: Hypertension type: essential hypertension Qualified Code(s): I10 - Essential (primary) hypertension (4) Asthma Code(s): J45.909 - UNSPECIFIED ASTHMA, UNCOMPLICATED Status: Chronic (5) Hypothyroidism Code(s): E03.9 - HYPOTHYROIDISM, UNSPECIFIED Status: Acute (6) Chronic atrial fibrillation Code(s): I48.20 - CHRONIC ATRIAL FIBRILLATION, UNSPECIFIED Status: Chronic (7) Chronic kidney disease, stage 2 (mild) Code(s): N18.2 - CHRONIC KIDNEY DISEASE, STAGE 2 (MILD) Status: Chronic (8) Dementia Code(s): F03.90 - UNSPECIFIED DEMENTIA WITHOUT BEHAVIORAL DISTURBANCE Status: Chronic (9) Hypokalemia Code(s): E87.6 - HYPOKALEMIA Status: Acute Plan: recheck after replacement yesterday - Plan Switching to po Lasix today per cardiology recommendations. No chronic anticoagulation due to dementia, possible falls Recheck potassium levels this morning. Home when ok with cardiology if not going to place AICD, I believe Dr. Mariscal has been scheduled to see her but not until late tonight. Possibly home tomorrow. DVT proph: SCDs
[2019-10-30 09:51] LABS: Anion Gap 14 mmol/L (10-20); BUN (Urea Nitrogen) 23 mg/dL (9.8-20.1); Calc. Creatinine Clearance 53 mL/min (70-130); Calcium 8.9 mg/dL (7.8-10.44); Carbon Dioxide 30 mmol/L (23-31); Chloride 97 mmol/L (98-107); Estimated GFR-MDRD 52; Glucose 136 mg/dL (83-110); Potassium 3.7 mmol/L (3.5-5.1); Sodium 137 mmol/L (136-145)
[2019-10-30] MEDS: Acetaminophen 500 MG TAB PO PRN ×2 (09:52→21:06)
--- NOTE | 2019-10-30 12:17 | PDOC.CPN ---
- Subjective Date: 10/30/19 Time: 12:29 Interval history: The pt seen and examined. No overnight events. No cardiac complaints. - Objective Allergies/Adverse Reactions: Allergies Allergy/AdvReac Type Severity Reaction Status Date / Time Sulfa (Sulfonamide Allergy Verified 09/12/19 20:06 Antibiotics) codeine AdvReac Mild Nausea Verified 09/08/19 19:51 Visit Medications: Current Medications Acetaminophen (Tylenol) 1,000 mg PO Q6H PRN PRN Reason: Mild Pain (1-3) Last Admin: 10/30/19 09:52 Dose: 1,000 mg Albuterol/Ipratropium (Duoneb) 3 ml NEB [id number] [facility] Last Admin: 10/30/19 07:30 Dose: 3 ml Aspirin (Aspirin Chewable) 81 mg PO DAILY [facility] Last Admin: 10/30/19 08:50 Dose: 81 mg Carvedilol (Coreg) 3.125 mg PO BID [facility] Last Admin: 10/30/19 08:50 Dose: 3.125 mg Famotidine (Pepcid) 20 mg PO 2100 [facility] Last Admin: 10/29/19 20:50 Dose: 20 mg Furosemide (Lasix) 20 mg PO 0900,1400 [facility] Hydralazine HCl (Apresoline) 10 mg SLOW IVP Q4H PRN PRN Reason: SBP > 180 and HR < 70 Ceftriaxone Sodium 1 gm/ (Sodium Chloride) 100 mls @ 200 mls/hr IVPB 1000 [facility] Last Admin: 10/30/19 08:50 Dose: 100 mls Levothyroxine Sodium (Synthroid) 125 mcg PO 0600 [facility] Last Admin: 10/30/19 06:17 Dose: 125 mcg Lisinopril (Zestril) 2.5 mg PO DAILY [facility] Last Admin: 10/30/19 08:50 Dose: 2.5 mg Ondansetron HCl (Zofran Odt) 4 mg PO Q6H PRN PRN Reason: Nausea/Vomiting Ondansetron HCl (Zofran) 4 mg IVP Q6H PRN PRN Reason: Nausea/Vomiting Paroxetine HCl (Paxil) 20 mg PO DAILY [facility] Last Admin: 10/30/19 08:50 Dose: 20 mg Sodium Chloride (Flush - Normal Saline) 10 ml IVF Q12HR [facility] Last Admin: 10/30/19 08:50 Dose: 10 ml Sodium Chloride (Flush - Normal Saline) 10 ml IVF PRN PRN PRN Reason: Saline Flush Last Admin: 10/29/19 14:27 Dose: 10 ml Vital Signs & Weight: Vital Signs Temp Pulse Resp BP Pulse Ox 10/30/19 08:45 97.9 F 60 16 112/76 94 L 10/30/19 08:00 94 L 10/30/19 07:30 75 16 10/30/19 04:22 97.7 F 89 16 124/78 99 10/30/19 00:28 88 20 93 L Weight 163 lb 14.4 oz - Physical Exam General: other (confused) HEENT: mucus membranes moist Neck: supple neck Cardiac: regular rate and rhythm, S1/S2 Lungs: clear to auscultation, decreased breath sounds Extremities: no edema - Labs Result Diagrams: 10/28/19 04:34 10/30/19 09:20 Troponin/CKMB CK-MB (CK-2) 1.0 ng/mL (0-6.6) 10/27/19 15:57 Troponin I 0.026 ng/mL (< 0.028) 10/27/19 21:11 - Telemetry Sinus rhythms and dysrhythmias: sinus rhythm - Assessment/Plan Assessment/Plan: 1. Acute on chronic Systolic HF - stable with RA; on Lasix 20mg BID, Coreg, and Lisinopril; 2. CMY with EF 15-20% - No candidate for an AICD 3. Prox Afib - remains in SR; on Coreg and ASA; high risk of fall due to dementia and waks with a walker 4. Hx of Rt breast cancer 5. Dementia 6. Hypothyroidism 7. CKD MAR reviewed * From Cardiac standpoint, the pt is stable to d/c home. The pt will f/u with Dr Edgar' office in 2 wks. Pt. seen and eval. by me. I agree with the A/P by the OIL FIELD ROUSTABOUT. She is confused at times and likely did not follow her po fluid intake at home. She has done well with diuresis and is comfortable at this time. chest clear. RRR. continue supportive care.
[2019-10-30] MEDS: Furosemide 20 MG TAB PO SCH (14:59)
[2019-10-30] MEDS: Famotidine 20 MG TAB PO SCH (21:06)
[2019-10-31 04:58] LABS: Anion Gap 12 mmol/L (10-20); BUN (Urea Nitrogen) 29 mg/dL (9.8-20.1); Calc. Creatinine Clearance 45 mL/min (70-130); Calcium 9.2 mg/dL (7.8-10.44); Carbon Dioxide 33 mmol/L (23-31); Chloride 97 mmol/L (98-107); Estimated GFR-MDRD 43; Glucose 96 mg/dL (83-110); Potassium 4.2 mmol/L (3.5-5.1); Sodium 138 mmol/L (136-145)
[2019-10-31] MEDS: Levothyroxine Sodium 125 MCG TAB PO SCH (05:59)
--- NOTE | 2019-10-31 09:08 | PDOC.HOSPP ---
- Subjective Encounter Date: 10/31/19 Encounter Time: 11:00 - Objective Vital Signs & Weight: Vital Signs (12 hours) Temp Pulse Resp BP BP Pulse Ox 10/31/19 07:47 96.3 F L 97 17 110/82 100 10/31/19 07:39 66 18 100 10/31/19 03:35 97.7 F 70 14 105/67 97 10/31/19 00:05 93 L Weight Weight 169 lb 8 oz I&O: 10/30/19 10/31/19 11/01/19 06:59 06:59 06:59 Intake Total 1610 1110 Output Total 1240 1100 Balance 370 10 Result Diagrams: 10/28/19 04:34 10/31/19 04:15 Hospitalist ROS - Medication Medications: Active Medications Generic Name Dose Route Start Last Admin Trade Name Freq PRN Reason Stop Dose Admin Acetaminophen 1,000 mg 10/27/19 22:30 10/30/19 21:06 Tylenol PO 1,000 mg Q6H PRN Administration Mild Pain (1-3) Albuterol/Ipratropium 3 ml 10/28/19 19:00 10/31/19 07:39 Duoneb NEB 3 ml [id number] DAVID Administration Aspirin 81 mg 10/28/19 09:00 10/30/19 08:50 Aspirin Chewable PO 81 mg DAILY DAVID Administration Carvedilol 3.125 mg 10/28/19 21:00 10/30/19 21:06 Coreg PO 3.125 mg BID DAVID Administration Famotidine 20 mg 10/28/19 21:00 10/30/19 21:06 Pepcid PO 20 mg 2100 DAVID Administration Furosemide 20 mg 10/30/19 14:00 10/30/19 14:59 Lasix PO 20 mg 0900,1400 DAVID Administration Ceftriaxone Sodium 1 gm/ 100 mls @ 200 mls/hr 10/29/19 10:00 10/30/19 08:50 Sodium Chloride IVPB 100 mls 1000 DAVID Administration Levothyroxine Sodium 125 mcg 10/30/19 06:00 10/31/19 05:59 Synthroid PO 125 mcg 0600 DAVID Administration Lisinopril 2.5 mg 10/29/19 09:00 10/30/19 08:50 Zestril PO 2.5 mg DAILY DAVID Administration Paroxetine HCl 20 mg 10/29/19 09:00 10/30/19 08:50 Paxil PO 20 mg DAILY DAVID Administration Sodium Chloride 10 ml 10/28/19 21:00 10/30/19 21:06 Flush - Normal Saline IVF 10 ml Q12HR DAVID Administration Sodium Chloride 10 ml 10/28/19 14:08 10/29/19 14:27 Flush - Normal Saline IVF 10 ml PRN PRN Administration Saline Flush Hosp A/P (1) Acute on chronic systolic (congestive) heart failure Code(s): I50.23 - ACUTE ON CHRONIC SYSTOLIC (CONGESTIVE) HEART FAILURE Status : Acute (2) Acute respiratory failure with hypoxia Code(s): J96.01 - ACUTE RESPIRATORY FAILURE WITH HYPOXIA Status: Acute (3) HTN (hypertension) Code(s): I10 - ESSENTIAL (PRIMARY) HYPERTENSION Status: Chronic Qualifiers: Hypertension type: essential hypertension Qualified Code(s): I10 - Essential (primary) hypertension (4) Asthma Code(s): J45.909 - UNSPECIFIED ASTHMA, UNCOMPLICATED Status: Chronic (5) Hypothyroidism Code(s): E03.9 - HYPOTHYROIDISM, UNSPECIFIED Status: Acute (6) Chronic atrial fibrillation Code(s): I48.20 - CHRONIC ATRIAL FIBRILLATION, UNSPECIFIED Status: Chronic (7) Chronic kidney disease, stage 2 (mild) Code(s): N18.2 - CHRONIC KIDNEY DISEASE, STAGE 2 (MILD) Status: Chronic (8) Dementia Code(s): F03.90 - UNSPECIFIED DEMENTIA WITHOUT BEHAVIORAL DISTURBANCE Status: Chronic (9) Hypokalemia Code(s): E87.6 - HYPOKALEMIA Status: Resolved - Plan Switched to po Lasix. No chronic anticoagulation due to dementia, possible falls Patient cleared for discharge by Dr. Edgar. Not a candidate for AICD. No need for CHF expert consultation. Spoke with , explained fluid restriction which he wasn't aware of. He will come pick her up this afternoon. DVT proph: SCDs
[2019-10-31] MEDS: Furosemide 20 MG TAB PO SCH ×2 (10:01→15:03)
[2019-10-31] MEDS: PARoxetine 20 MG TAB PO SCH (10:01)
[2019-10-31] MEDS: Acetaminophen 500 MG TAB PO PRN (10:01)
[2019-10-31] MEDS: cefTRIAXone\\ROCEPHIN 1 GM in Sodium Chloride 0.9% 100 ML IVPB SCH (10:02)
[2019-10-31] MEDS: Aspirin Chewable 81 MG TAB PO SCH (10:02)
[2019-10-31] MEDS: Carvedilol 3.125 MG TAB PO SCH (10:02)
[2019-10-31] MEDS: Lisinopril 5 MG TAB PO SCH (10:02)
--- NOTE | 2019-10-31 14:59 | PDOC.CPN ---
- Subjective Date: 10/31/19 Time: 08:30 Interval history: The pt seen and examined. No overnight events. No cardiac complaints. - Objective Allergies/Adverse Reactions: Allergies Allergy/AdvReac Type Severity Reaction Status Date / Time Sulfa (Sulfonamide Allergy Verified 09/12/19 20:06 Antibiotics) codeine AdvReac Mild Nausea Verified 09/08/19 19:51 Visit Medications: Current Medications Acetaminophen (Tylenol) 1,000 mg PO Q6H PRN PRN Reason: Mild Pain (1-3) Last Admin: 10/31/19 10:01 Dose: 1,000 mg Albuterol/Ipratropium (Duoneb) 3 ml NEB [id number] [facility] Last Admin: 10/31/19 13:11 Dose: 3 ml Aspirin (Aspirin Chewable) 81 mg PO DAILY [facility] Last Admin: 10/31/19 10:02 Dose: 81 mg Carvedilol (Coreg) 3.125 mg PO BID [facility] [place] Last Admin: 10/31/19 10:02 Dose: 3.125 mg Famotidine (Pepcid) 20 mg PO 2100 [facility] [place] Last Admin: 10/30/19 21:06 Dose: 20 mg Furosemide (Lasix) 20 mg PO 0900,1400 [facility] [place] Last Admin: 10/31/19 10:01 Dose: 20 mg Hydralazine HCl (Apresoline) 10 mg SLOW IVP Q4H PRN PRN Reason: SBP > 180 and HR < 70 Ceftriaxone Sodium 1 gm/ (Sodium Chloride) 100 mls @ 200 mls/hr IVPB 1000 [facility] [place] Last Admin: 10/31/19 10:02 Dose: 100 mls Levothyroxine Sodium (Synthroid) 125 mcg PO 0600 [facility] [place] Last Admin: 10/31/19 05:59 Dose: 125 mcg Lisinopril (Zestril) 2.5 mg PO DAILY [facility] [place] Last Admin: 10/31/19 10:02 Dose: 2.5 mg Ondansetron HCl (Zofran Odt) 4 mg PO Q6H PRN PRN Reason: Nausea/Vomiting Ondansetron HCl (Zofran) 4 mg IVP Q6H PRN PRN Reason: Nausea/Vomiting Paroxetine HCl (Paxil) 20 mg PO DAILY [facility] [place] Last Admin: 10/31/19 10:01 Dose: 20 mg Sodium Chloride (Flush - Normal Saline) 10 ml IVF Q12HR [facility]ID Last Admin: 10/31/19 10:02 Dose: 10 ml Sodium Chloride (Flush - Normal Saline) 10 ml IVF PRN PRN PRN Reason: Saline Flush Last Admin: 10/29/19 14:27 Dose: 10 ml Vital Signs & Weight: Vital Signs Temp Pulse Resp BP BP Pulse Ox 10/31/19 13:11 88 20 98 10/31/19 12:18 97.4 F L 96 19 112/70 93 L 10/31/19 10:02 97 10/31/19 07:47 96.3 F L 97 17 110/82 100 10/31/19 07:39 66 18 100 10/31/19 03:35 97.7 F 70 14 105/67 97 Weight 169 lb 8 oz - Physical Exam General: other (alerted ans oriented to self) HEENT: mucus membranes moist Neck: supple neck Cardiac: regular rate and rhythm, S1/S2 Lungs: decreased breath sounds - Labs Result Diagrams: 10/28/19 04:34 10/31/19 04:15 Troponin/CKMB CK-MB (CK-2) 1.0 ng/mL (0-6.6) 10/27/19 15:57 Troponin I 0.026 ng/mL (< 0.028) 10/27/19 21:11 - Telemetry Sinus rhythms and dysrhythmias: sinus rhythm - Assessment/Plan Assessment/Plan: 1. Acute on chronic Systolic HF - stable with RA; on Lasix 20mg BID, Coreg, and Lisinopril; 2. CMY with EF 15-20% - No candidate for an AICD 3. Prox Afib - remains in SR; on Coreg and ASA; high risk of fall due to dementia and generalized weakness 4. Hx of Rt breast cancer 5. Dementia 6. Hypothyroidism 7. CKD MAR reviewed * From Cardiac standpoint, the pt is stable to d/c home. The pt will f/u with Dr Edgar' office in 2 wks. Pt. seen and eval. by me. I agree with the A/P by the CYTOTECHNOLOGIST. Chest clear. RRR. No edema. Pt. wants to go home. From a cardiac standpoint she can be d/c'd. I am uncertain about her home situation and whether she is getting her medications appropriately.
--- NOTE | 2019-10-31 15:24 | DIS ---
DATE OF ADMISSION: 10/27/2019 DATE OF DISCHARGE: 10/31/2019 PRIMARY CARE PHYSICIAN: Dr. Manzano. REASON FOR ADMISSION: CHF exacerbation and hypertensive urgency. DIAGNOSES AT DISCHARGE: 1. Acute on chronic systolic congestive heart failure, improved. 2. Acute respiratory failure with hypoxia, resolved. 3. Hypertensive urgency, resolved. 4. Hypertension. 5. Asthma. 6. Hypothyroidism. Still a little bit low, medication increased. 7. Chronic atrial fibrillation. 8. Chronic kidney disease stage 2. 9. Dementia. PROCEDURES: None. CONSULTATIONS: Cardiology, Dr. Edgar. SUMMARY OF HOSPITAL COURSE: This is a 79-year-old white female, who presented to [facility] with increased shortness of breath for the last 24 hours. The patient has a history of systolic congestive heart failure, EF 15% to 20% a couple of months ago. She had initially been noncompliant with her medications due to her dementia and her having some health issues. However, she has been doing better and has had on her medicines regularly. However, the patient does drink a lot of ice tea throughout the day. The was not aware of her need for fluid restriction. The patient was initially also had severely elevated blood pressure. She was given nitroglycerin and Lasix and initially CPAP, which was able to be weaned quickly. She was diuresed in the hospital. Cardiology was consulted. Dr. Chicas initially saw her and she was taken over by Dr. Edgar. The patient improved markedly during her hospitalization, she was weaned off all oxygen. Her blood pressures were well controlled. She had been diagnosed with hypothyroidism a couple of months ago, was started on her levothyroxine. However, her TSH was still a little higher, free T4 was still a little low, and so her levothyroxine was increased slightly. The patient has been stable, has been cleared for discharge by Cardiology. There was some question about getting the Heart failure specialist to see her during the hospitalization, however, that can be done as an outpatient if necessary. Dr. Edgar will follow up with her in the clinic in 2 weeks. I have discussed her case with the patient's and he is aware of the need for fluid restriction and is on his way to pick her up. The patient was determined not to be a candidate for anticoagulation due to her dementia and some falls previously and not a candidate for an AICD due to her dementia. DISCHARGE MANAGEMENT: Discharged to home. ACTIVITY: As tolerated. DIET: Healthy heart, fluid-restricted, low-sodium diet. FOLLOWUP: Follow up with Heart Failure Clinic, with Dr. Manzano on the , and with Dr. Edgar in 2 weeks. MEDICATIONS: 1. Levothyroxine 125 mcg daily, 30 tablets dispensed. 2. Acetaminophen as needed. 3. Aspirin 81 mg daily. 4. Carvedilol 3.125 mg twice a day. 5. Furosemide 20 mg twice a day. 6. DuoNeb as needed. 7. Lisinopril 2.5 mg daily. 8. Paroxetine 20 mg daily. TIME SPENT: Arranging the details of this discharge took 35 minutes. Job ID: [id number]
[2019-10-31 15:47] VITALS: BP 107/72; TEMP 97.5
--- NOTE | 2019-11-02 11:07 | PQF ---
KATHRINE NAVA RYAN ANDREW MD [id number] [facility]-263 [id number] CLINICAL DOCUMENTATION CLARIFICATION FORM: POST DISCHARGE Addendum to original discharge summary date: ____ Late entry note date: __ DATE:11/02/2019 ATTN:ERMELINDA CABALLERO MD Please exercise your independent, professional judgment in responding to the clarification form. Clinical indicators are provided on the bottom of this form for your review Please check appropriate box(s): AMI TYPE: [ ] Acute Coronary Syndrome (ACS) without Acute NH meaning Unstable Angina [ ] NSTEMI (NH type I) [ ] NSTEMI due to Demand Ischemia (AMI Type II) [ X ] Demand Ischemia without NH [ ] STEMI (please also specify site and arterysee below) If STEMI, SITE:[ ] Anterior [ ] Apical [ ] Lateral [ ] Inferior [ ] Posterior [ ] Q Wave [ ] Septal [ ] Unable to Determine SPECIFIC ARTERY (Based on site) [ ] Left Main Coronary[ ] Diagonal [ ] Left Anterior Descending[ ] Oblique Marginal [ ] Right Coronary Artery[ ] Unable to Determine [ ] Left Circumflex [ ] Other diagnosis [ ] Unable to determine In addition, please specify: Present on Admission (POA): [ X ] Yes [ ] No [ ] Unable to determine CLINICAL INDICATORS - SIGNS / SYMPTOMS / LABS EKG interpretation:Frequent premature ventricular complexes, ST abnormality, consider lateral ischemia , T Waves , abnormality , consider lateral ischemia, prolonged QTc-Documented in ED on 10/26 by Delvin Ahn MD Acu Acute on chronic systolic congestive heart failure-Documented in H&P on 10/26 by Fabian Moreno DO Troponin ranged between 0.026 to 0.040-Documented in H&P on 10/26 by Fabian Moreno DO Elevated troponin I. Suspect demand ischemia in the context of congestive heart failure exacerbation-Documented in H&P on 10/26 by Fabian Moreno DO RISKS: Acute on chronic systolic congestive heart failure-Documented in H&P on 10/26 by Fabian Moreno DO HTN-Documented in H&P on 10/26 by Fabian Moreno DO Chronic atrial fibrillation -Documented in hospitalist progress note on 10/27 by Ermelinda Caballero TREATMENTS: Continue to monitor clinical response as outlined in number one-Documented in H& P on 10/26 by Fabian Moreno DO Aspirin 81 mg PO-Documented in Medication snapshot Lasix 40 mg IV-Documented in Medication snapshot [employer] Winform Viewer (This form is maintained as a part of the permanent medical record) 2014 [employer]. All Rights Reserved [email or web address]
== END 2019-10-31 16:10 | disposition home or self-care (01) | DRG 291 ==
LOC: ERS 14:33 → ERHOLD 15:47 → 2NO 21:26
PROVIDERS: ADMIT Internal Medicine; ATTEND Internal Medicine
DX: I13.0 Hypertensive heart and chronic kidney disease with heart failure and stage 1 through stage 4 chronic kidney disease, or unspecified chronic kidney disease (principal); I50.23 Acute on chronic systolic (congestive) heart failure; J96.01 Acute respiratory failure with hypoxia; I47.2 Ventricular tachycardia; I24.8 Other forms of acute ischemic heart disease; I16.0 Hypertensive urgency; N18.2 Chronic kidney disease, stage 2 (mild); E03.9 Hypothyroidism, unspecified; F03.90 Unspecified dementia, unspecified severity, without behavioral disturbance, psychotic disturbance, mood disturbance, and anxiety; E66.9 Obesity, unspecified; J44.9 Chronic obstructive pulmonary disease, unspecified; E87.6 Hypokalemia; I48.0 Paroxysmal atrial fibrillation; Z88.2 Allergy status to sulfonamides; Z68.32 Body mass index [BMI] 32.0-32.9, adult; Z90.11 Acquired absence of right breast and nipple; Z85.3 Personal history of malignant neoplasm of breast; Z90.710 Acquired absence of both cervix and uterus; Z88.5 Allergy status to narcotic agent; Z91.14 Patient's other noncompliance with medication regimen
CPT/HCPCS: 36415; 80048; 82553; 83735; 83880; 84145; 84439; 84443; 85007; 85027; 93005; 93010; 93798; 94640; 94760; J0696; J1940; J3480; J3490; J7620

== ENCOUNTER 2019-11-08 17:56 | Inpatient (IN) | payer MEDICARE, OTHER ==
[2019-11-08 18:29] LABS: #Eosinphils 0.1 thou/uL (0.0-0.7); #Lymphocytes 1.2 thou/uL (1.20-3.40); #Monocytes 0.3 thou/uL (0.11-0.59); #Neutrophils 5.2 thou/uL (1.40-6.50); %Basophils 0.4 % (0.0-1.0); %Eosinophils 1.7 % (0.0-10.0); %Lymphocytes 17.5 % (21.0-51.0); %Monocytes 4.7 % (0.0-10.0); %Neutrophils 75.7 % (42.0-75.0); Hemoglobin 12.4 g/dL (12.0-16.0); Mean Corpuscular HGB CONC 32.3 g/dL (32.0-36.0); Mean Corpuscular Hemoglobin 30.5 pg (27.0-31.0); Mean Corpuscular Volume 94.2 fL (78.0-98.0); Mean Platelet Volume 8.2 fL (7.4-10.4); Platelet Count 272 thou/uL (130-400); RBC Distribution Width 14.6 % (11.5-14.5); Red Blood Cell (RBC) Count 4.06 mill/uL (4.20-5.40); White Blood Cell (WBC) Count 6.9 thou/uL (4.8-10.8)
--- NOTE | 2019-11-08 18:48 | RAD ---
Portable chest: HISTORY: Dyspnea COMPARISON: 10/27/2019 FINDINGS:Cardiomegaly again noted. No significant vascular congestion. There is now hazy infiltrate i n the right upper lobe. Continued evidence of small bilateral effusions. IMPRESSION:Evidence of new hazy infiltrate in the right upper lobe
[2019-11-08 18:53] LABS: ALT (SGPT) 60 U/L (8-55); AST (SGOT) 39 U/L (5-34); Albumin 4.1 g/dL (3.4-4.8); Alkaline Phosphatase 97 U/L (40-110); Anion Gap 13 mmol/L (10-20); BUN (Urea Nitrogen) 22 mg/dL (9.8-20.1); Bilirubin, Total 0.4 mg/dL (0.2-1.2); Calc. Creatinine Clearance 0 mL/min (70-130); Calcium 8.9 mg/dL (7.8-10.44); Carbon Dioxide 23 mmol/L (23-31); Chloride 108 mmol/L (98-107); Estimated GFR-MDRD 49; Globulin 3.2 g/dL (2.4-3.5); Glucose 92 mg/dL (83-110); Potassium 4.1 mmol/L (3.5-5.1); Protein, Total 7.3 g/dL (6.0-8.3); Sodium 140 mmol/L (136-145)
[2019-11-08 18:55] LABS: Bacteria/HPF None Seen HPF (None Seen); Bilirubin Negative (Negative); Blood, Urine Negative (Negative); Clarity Clear (Clear); Glucose, Urine (Dipstick) Normal (Negative); Leukocyte 25 Leu/uL (Negative); Nitrite Negative (Negative); Protein, Urine (Dipstick) 70 mg/dL (Neg-Trace); RBC/HPF 0-3 HPF (0-3); Squamous Epithelial 0-3 HPF (0-3)
[2019-11-08] MEDS ORDERED: Furosemide 40 MG/4 ML VIAL ONE (19:07)
[2019-11-08 19:13] LABS: CKMB 1.2 ng/mL (0-6.6)
[2019-11-08] MEDS ORDERED: cefTRIAXone\\ROCEPHIN 1 GM VIAL ONE (21:16)
[2019-11-08] MEDS ORDERED: Azithromycin 500 MG VIAL ONE (22:33)
[2019-11-08 23:25] LABS: Troponin I 0.033 ng/mL (< 0.028)
[2019-11-09 00:27] VITALS: BMI 32.1
[2019-11-09] MEDS ORDERED: PROVENTIL INHALER 6.7 G (200 INHALATIONS) INH PRN (00:31)
[2019-11-09] MEDS: Melatonin 3 MG TAB PO PRN (00:56)
--- NOTE | 2019-11-09 01:40 | HP ---
CHIEF COMPLAINT: Shortness of breath. HISTORY OF PRESENT ILLNESS: Patient is a 79-year-old female, who has some dementia, but is otherwise pleasant, conversant, and reasonably good with her history. She presented via the emergency department today with increasing shortness of breath, which was apparently just today. The patient was just admitted to this facility on October 26 and discharged on October 30. The patient has congestive heart failure with a severe cardiomyopathy with an ejection fraction of 15% to 20%. She was diuresed at that time and had improvement in her symptoms and subsequently was discharged home to continue with the medical regimen and some fluid restriction. The patient denies specifically having any fevers or chills. She has very minimal occasional cough, which is fairly chronic. She has no specific chest pain. REVIEW OF SYSTEM: All other systems reviewed and were negative, except for those things mentioned in the history of present illness. PAST MEDICAL HISTORY: 1. Congestive heart failure with EF of 15% to 20%. 2. Hypothyroidism. 3. Chronic atrial fibrillation, not on anticoagulation due to considered being too high risk because of dementia and potential falls. 4. History of breast cancer. 5. Chronic kidney disease, stage 3. 6. Dementia. 7. History of asthma. PAST SURGICAL HISTORY: Hysterectomy and right mastectomy. ALLERGIES: SULFA AND CODEINE. CURRENT MEDICATIONS: 1. Paroxetine 20 mg p.o. daily. 2. Lisinopril 2.5 mg p.o. daily. 3. Levothyroxine 125 mcg p.o. daily. 4. DuoNebs q.i.d. p.r.n. 5. Lasix 20 mg p.o. b.i.d. 6. Coreg 3.125 one p.o. b.i.d. 7. Aspirin 81 mg p.o. daily. 8. Tylenol p.r.n. FAMILY HISTORY: Negative per patient report relative to this admission. SOCIAL HISTORY: Patient is a nonsmoker, nondrinker, and nondrug user. She is , lives with her in [place]. She is full code and her would be her surrogate decision maker. PHYSICAL EXAMINATION: VITAL SIGNS: Temperature 97.7, pulse 106, respirations 20, O2 saturation 96% on 2 L nasal cannula, and BP 119/77. GENERAL APPEARANCE: Age-appropriate female, in no distress. She is pleasant, cooperative. HEENT: PERRL. No OP lesions. NECK: Supple and symmetric. HEART: Regular rate and rhythm. Normal S1, S2. No murmurs, gallops, or rubs. LUNGS: Clear to auscultation bilaterally. She is a bit tachypneic. She has no wheezes or rales appreciably. ABDOMEN: Soft, nontender, and nondistended. Positive bowel sounds. No masses. No organomegaly. EXTREMITIES: She appears to have very mild puffy nonpitting edema of the lower extremities. PSYCH: Normal affect and behavior. NEUROLOGIC: Patient appeared to have some at least mild dementia as she does not recall that she has the history of congestive heart failure and cardiomyopathy. Otherwise, she is generally able to understand everything that we discuss relatively well. LABORATORY DATA: White count 6.9, hemoglobin 12.4, and platelets 272. Sodium 140, potassium is 4.1, chloride is 108, CO2 is 23, BUN 22, creatinine is 1.09, glucose 92, lactic acid is 0.6, total bili 0.4, AST 39, ALT is 60, and alk phos 97. Troponin 0.039, subsequent 0.033. BNP 2309. Albumin 4.1. Urinalysis generally negative. Flu screen negative for A and B. Chest x-ray shows a new right upper lobe infiltrate without significant vascular congestion. EKG shows sinus tach with some PVCs and nonspecific T-wave changes. IMPRESSION AND PLAN: 1. Acute hypoxic respiratory failure. Maintain supplemental oxygen. Suspect this is related to the right upper lobe infiltrates. 2. Right upper lobe infiltrate, possibly representing pneumonia versus congestive heart failure exacerbation with a localized pulmonary edema. 3. Congestive heart failure exacerbation, acute on chronic systolic. Patient's BNP is significantly elevated, evidence to support this is more heart failure exacerbation being the fact that she is afebrile, has a normal white count, and the elevated BNP. We will give Lasix 40 mg IV b.i.d. She has received one dose in the emergency department. 4. Right upper lobe pneumonia. Again, this would be an atypical infiltrate for congestive heart failure. She does not have fever or white count. However, we will cover with antibiotics until we can get a repeat chest x-ray in the morning to help determine if this is potentially infectious etiology. 5. History of atrial fibrillation, appears to be in sinus rhythm now. She is not on anticoagulation due to dementia and risk of falls. 6. Cardiomyopathy. Patient does not have an AICD because of her dementia. 7. Chronic kidney disease, stable. 8. Dementia, stable. 9. History of asthma. We will continue with p.r.n. bronchodilators as she does not appear to have an acute exacerbation at this time. Job ID: [id number]
[2019-11-09 01:45] LABS: Troponin I 0.043 ng/mL (< 0.028)
[2019-11-09 05:31] LABS: #Basophils 0.1 thou/uL (0.0-0.2); #Eosinphils 0.1 thou/uL (0.0-0.7); #Lymphocytes 1.1 thou/uL (1.20-3.40); #Monocytes 0.4 thou/uL (0.11-0.59); #Neutrophils 4.2 thou/uL (1.40-6.50); %Basophils 1.1 % (0.0-1.0); %Eosinophils 2.4 % (0.0-10.0); %Lymphocytes 18.8 % (21.0-51.0); %Monocytes 6.9 % (0.0-10.0); %Neutrophils 70.8 % (42.0-75.0); Hemoglobin 12.1 g/dL (12.0-16.0); Mean Corpuscular HGB CONC 32.2 g/dL (32.0-36.0); Mean Corpuscular Hemoglobin 30.8 pg (27.0-31.0); Mean Corpuscular Volume 95.6 fL (78.0-98.0); Mean Platelet Volume 8.7 fL (7.4-10.4); Platelet Count 219 thou/uL (130-400); RBC Distribution Width 14.5 % (11.5-14.5); Red Blood Cell (RBC) Count 3.92 mill/uL (4.20-5.40)
[2019-11-09 05:53] LABS: Anion Gap 15 mmol/L (10-20); BUN (Urea Nitrogen) 21 mg/dL (9.8-20.1); Calc. Creatinine Clearance 62 mL/min (70-130); Calcium 8.5 mg/dL (7.8-10.44); Carbon Dioxide 22 mmol/L (23-31); Chloride 107 mmol/L (98-107); Estimated GFR-MDRD 58; Glucose 90 mg/dL (83-110); Sodium 140 mmol/L (136-145)
[2019-11-09] MEDS: Levothyroxine Sodium 125 MCG TAB PO SCH (06:18)
[2019-11-09] MEDS: Furosemide 40 MG/4 ML VIAL SLOW IVP SCH ×2 (06:19→13:49)
[2019-11-09] MEDS: Aspirin 81 mg Enteric Coated Tablet PO SCH (09:56)
[2019-11-09] MEDS: Carvedilol 3.125 MG TAB PO SCH ×2 (09:56→20:49)
[2019-11-09] MEDS: PARoxetine 20 MG TAB PO SCH (09:57)
[2019-11-09] MEDS: Enoxaparin Sodium 40 MG/0.4 ML SYRINGE SC SCH (09:57)
[2019-11-09] MEDS: Lisinopril 5 MG TAB PO SCH (09:57)
--- NOTE | 2019-11-09 13:38 | CON ---
DATE OF CONSULTATION: 11/09/2019 PRIMARY COMMUNICATIONS DEPARTMENT CHAIRPERSON: Dr. Liberty Edgar. REASON FOR CONSULTATION: Heart failure. HISTORY OF PRESENT ILLNESS: Ms. Lopez is a pleasant 79-year-old white female, who comes to the hospital for increased shortness of breath. She was in the hospital about 2 weeks ago for similar reason. She was diuresed adequately and sent home in a stable manner. She comes back as she got increasingly more short of breath, which happened on the day of admission. This was not a gradual increase. She was evaluated and found to have findings suggestive of CHF and possible right upper lobe pneumonia, so she was admitted for IV antibiotics and diuresis. Cardiology has been consulted for help with management of the heart failure. PAST MEDICAL HISTORY: 1. Chronic systolic heart failure with an EF of 15% to 20%. 2. Hypothyroidism. 3. Chronic atrial fibrillation, on aspirin alone for stroke prophylaxis due to high risk of falls and dementia. 4. History of breast cancer. 5. Chronic kidney disease, stage 3. 6. Dementia. 7. History of bronchial asthma. PAST SURGICAL HISTORY: 1. Hysterectomy. 2. Right mastectomy. ALLERGIES: SULFA DRUGS AND CODEINE. OUTPATIENT MEDICATIONS: 1. Paroxetine 20 mg a day. 2. Lisinopril 2.5 mg a day. 3. Levothyroxine 125 mcg a day. 4. DuoNebs q.i.d. p.r.n. 5. Lasix 20 mg b.i.d. 6. Coreg 3.125 b.i.d. 7. Aspirin 81 mg daily. 8. Tylenol p.r.n. FAMILY HISTORY: Noncontributory. SOCIAL HISTORY: No alcohol, tobacco, or drugs. Lives in the [place] with her . REVIEW OF SYSTEMS: A 12-point review of systems was done and was all negative unless stated in the history of present illness. PHYSICAL EXAMINATION: VITAL SIGNS: Temperature 99.7, pulse 107, respiratory rate 22, saturating 97% on 3 L, and blood pressure 147/79. GENERAL: Awake, alert, and oriented to person, but difficult to place and time, but very pleasant and conversant, in no distress. HEENT: Normocephalic and atraumatic. NECK: Supple. LUNGS: Have mild crackles at the bases. CARDIOVASCULAR: S1 and S2. No S3 or S4. There is a grade 2/6 systolic murmur at the right upper sternal border. ABDOMEN: Soft. Positive bowel sounds. EXTREMITIES: 1+ edema. SKIN: Warm and dry. LABORATORY DATA: Laboratory work was reviewed. White count of 6, hemoglobin of 12, hematocrit of 38, and platelet count of 272. Chemistries were reviewed, unremarkable. Troponin-I 0.03, 0.03, 0.04. BNP was 2309. UA was unremarkable except for urine protein, trace ketones. Influenza A and B were both negative. Chest x-ray on admission showed new hazy infiltrate in the right upper lobe. ASSESSMENT: 1. Acute on chronic systolic heart failure. 2. Suspected methicillin-resistant Staphylococcus aureus pneumonia, given recent hospitalization. 3. Chronic atrial fibrillation. 4. Dementia. PLAN: 1. IV antibiotics per Primary Team. 2. IV diuresis. She is already feeling a lot better. She is diuresing well on current dose of Lasix, we would continue for now. Thank you for letting us to participate in the care of the patient. Dr. Edgar, her primary eyeglass cutter will follow up in the morning. Job ID: [id number]
--- NOTE | 2019-11-09 15:43 | PDOC.EVN ---
Event Note - Event Note Event Note: Seen and examined. Breathing comfortably on low-flow nasal cannula, doesnt normally require oxygen. Changed to inpatient status. Cardiology consulted for continuity of care. Normal WBC count, febrile. Pulmonary infiltrate vs pulm edema. On ABX.
[2019-11-09] MEDS: cefTRIAXone\\ROCEPHIN 1 GM in Sodium Chloride 0.9% 100 ML IVPB SCH (20:48)
[2019-11-09] MEDS: Acetaminophen 325 MG TAB PO PRN (20:48)
[2019-11-09] MEDS: Azithromycin 1,000 MG in Sodium Chloride 0.9% 500 ML IVPB SCH (22:45)
[2019-11-10] MEDS: Levothyroxine Sodium 125 MCG TAB PO SCH (05:34)
[2019-11-10] MEDS: Furosemide 40 MG/4 ML VIAL SLOW IVP SCH ×2 (05:34→15:45)
[2019-11-10] MEDS: Acetaminophen 325 MG TAB PO PRN (05:36)
--- NOTE | 2019-11-10 08:16 | RAD ---
EXAM: CHEST ONE VIEW HISTORY: Right upper lobe infiltrate, CHF versus pneumonia. COMPARISON: 11/08/2019 FINDINGS: Cardiac silhouette remains in large. Bronchovascular markings are accentuated by patient rotation. Th e patchy parenchymal airspace opacity in the right upper lung zone does appear mildly improved. Interstitial markings in the right upper lung zone do appear mildly increased, but again this could b e related to patient rotation. Lungs are otherwise clear. Vascular calcifications are again seen in the thoracic aorta. Surgical clips again overlie the right chest. No other interval change. IMPRESSION: 1. Mild improvement in airspace opacity right upper lung zone, but mild prominence of interstitial ma rkings is present. However, this may be attributable to prominent patient rotation. Continued follow-up evaluation is recommended. 2. Cardiomegaly.
[2019-11-10] MEDS: PARoxetine 20 MG TAB PO SCH (09:51)
[2019-11-10] MEDS: Lisinopril 5 MG TAB PO SCH (09:51)
[2019-11-10] MEDS: Aspirin 81 mg Enteric Coated Tablet PO SCH (09:51)
[2019-11-10] MEDS: Enoxaparin Sodium 40 MG/0.4 ML SYRINGE SC SCH (09:52)
[2019-11-10] MEDS: Carvedilol 3.125 MG TAB PO SCH ×2 (09:52→21:03)
--- NOTE | 2019-11-10 12:55 | PDOC.HOSPP ---
- Subjective Subjective: Seen and examined. Still requiring supplemental oxygen to maintain O2 saturation 's. Gets short of breath with much movement. She has been afebrile. Normal WBC count. Overall she states that she is feeling better. - Objective Vital Signs & Weight: Vital Signs (12 hours) Temp Pulse Pulse Pulse Resp BP BP 11/10/19 10:33 88 86 115/58 L 11/10/19 09:51 77 11/10/19 08:00 98.3 F 77 20 115/58 L 11/10/19 07:45 11/10/19 06:44 11/10/19 03:44 97.7 F 77 18 130/76 Pulse Ox Pulse Ox 11/10/19 10:33 97 11/10/19 09:51 11/10/19 08:00 95 11/10/19 07:45 68 L 11/10/19 06:44 98 11/10/19 03:44 91 L Weight Weight 172 lb 9.6 oz I&O: 11/09/19 11/10/19 11/11/19 06:59 06:59 06:59 Intake Total 2260 Output Total 500 Balance 1760 Result Diagrams: 11/09/19 04:58 11/09/19 04:58 Radiology Reviewed by me: Yes Hospitalist ROS - Review of Systems All other systems reviewed; all pertinent +/- noted in HPI/Subj - Medication Medications: Active Medications Generic Name Dose Route Start Last Admin Trade Name Freq PRN Reason Stop Dose Admin Acetaminophen 650 mg 11/09/19 00:31 11/10/19 05:36 Tylenol PO 650 mg Q4H PRN Administration MILD pain 1-3/fever Albuterol Sulfate 2 puff 11/09/19 00:31 11/09/19 08:45 Proventil Hfa INH 2 puff Q4H PRN Administration SOB &/or Wheezing Aspirin 81 mg 11/09/19 09:00 11/10/19 09:51 Ecotrin PO 81 mg DAILY DAVID Administration Carvedilol 3.125 mg 11/09/19 09:00 11/10/19 09:52 Coreg PO 3.125 mg BID DAVID Administration Enoxaparin Sodium 40 mg 11/09/19 09:00 11/10/19 09:52 Lovenox SC 40 mg 0900 DAVID Administration Furosemide 40 mg 11/09/19 06:00 11/10/19 05:34 Lasix SLOW IVP 40 mg 0600,1400 DAVID Administration Azithromycin 1,000 mg/ Sodium 500 mls @ 250 mls/hr 11/09/19 22:00 11/09/19 22 :45 Chloride IVPB 500 mls Q24HR DAVID Administration Ceftriaxone Sodium 1 gm/ 100 mls @ 200 mls/hr 11/09/19 21:00 11/09/19 20:48 Sodium Chloride IVPB 100 mls Q24HR DAVID Administration Levothyroxine Sodium 125 mcg 11/09/19 06:00 11/10/19 05:34 Synthroid PO 125 mcg 0600 DAVID Administration Lisinopril 2.5 mg 11/09/19 09:00 11/10/19 09:51 Zestril PO 2.5 mg DAILY DAVID Administration Melatonin 3 mg 11/09/19 00:30 11/09/19 00:56 Melatonin PO 3 mg HS PRN Administration Insomnia Paroxetine HCl 20 mg 11/09/19 09:00 11/10/19 09:51 Paxil PO 20 mg DAILY DAVID Administration Sodium Chloride 10 ml 11/09/19 09:00 11/10/19 09:53 Flush - Normal Saline IVF 10 ml Q12HR DAVID Administration Sodium Chloride 10 ml 11/09/19 00:49 11/09/19 13:50 Flush - Normal Saline IVF 10 ml PRN PRN Administration Saline Flush - Exam General Appearance: NAD, awake alert Eye: anicteric sclera ENT: normocephalic atraumatic, moist mucosa Neck: supple, symmetric, no lymphadenopathy Heart: no murmur, no gallops, no rubs, normal peripheral pulses Respiratory: no ronchi, normal chest expansion, no tachypnea, rales (Faint), wheezes Gastrointestinal: soft, non-tender, no bruit, no guarding Extremities: 1+ LE edema Skin: no lesions, no rashes Neurological: cranial nerve grossly intact, no focal deficits Musculoskeletal: generalized weakness Psychiatric: A&O x 3 Hosp A/P (1) Pneumonia Code(s): J18.9 - PNEUMONIA, UNSPECIFIED ORGANISM Status: Acute (2) Acute on chronic systolic (congestive) heart failure Code(s): I50.23 - ACUTE ON CHRONIC SYSTOLIC (CONGESTIVE) HEART FAILURE Status : Acute (3) Acute respiratory failure with hypoxia Code(s): J96.01 - ACUTE RESPIRATORY FAILURE WITH HYPOXIA Status: Acute (4) Breast CA Status: Acute (5) Sepsis Code(s): A41.9 - SEPSIS, UNSPECIFIED ORGANISM Status: Acute (6) Asthma Code(s): J45.909 - UNSPECIFIED ASTHMA, UNCOMPLICATED Status: Chronic (7) Chronic atrial fibrillation Code(s): I48.20 - CHRONIC ATRIAL FIBRILLATION, UNSPECIFIED Status: Chronic (8) Chronic kidney disease, stage 2 (mild) Code(s): N18.2 - CHRONIC KIDNEY DISEASE, STAGE 2 (MILD) Status: Chronic (9) Dementia Code(s): F03.90 - UNSPECIFIED DEMENTIA WITHOUT BEHAVIORAL DISTURBANCE Status: Chronic (10) HTN (hypertension) Code(s): I10 - ESSENTIAL (PRIMARY) HYPERTENSION Status: Chronic Qualifiers: Hypertension type: essential hypertension Qualified Code(s): I10 - Essential (primary) hypertension - Plan Plan: medical unit telemetry cardiology consultation, recommendations appreciated congestive heart failure with acute exacerbation cardiomyopathy regimen IV lasix fluid restrictions community acquired pneumonia continue IV antibiotics, breathing treatments Afebrile Normal WBC count supplemental oxygen to maintain O2 saturation greater than 88% continue other home medications as able blood pressure control blood sugar control G.I. prophylaxis DVT prophylaxis
--- NOTE | 2019-11-10 13:00 | PDOC.CPN ---
- Subjective Date: 11/10/19 Time: 13:05 Interval history: The pt seen and examined. No overnight events. No cardiac complaints. - Objective Allergies/Adverse Reactions: Allergies Allergy/AdvReac Type Severity Reaction Status Date / Time Sulfa (Sulfonamide Allergy Verified 11/09/19 00:26 Antibiotics) codeine AdvReac Mild Nausea Verified 11/09/19 00:26 Visit Medications: Current Medications Acetaminophen (Tylenol) 650 mg PO Q4H PRN PRN Reason: MILD pain 1-3/fever Last Admin: 11/10/19 05:36 Dose: 650 mg Albuterol Sulfate (Proventil Hfa) 2 puff INH Q4H PRN PRN Reason: SOB &/or Wheezing Last Admin: 11/09/19 08:45 Dose: 2 puff Aspirin (Ecotrin) 81 mg PO DAILY [facility] Last Admin: 11/10/19 09:51 Dose: 81 mg Carvedilol (Coreg) 3.125 mg PO BID [facility] Last Admin: 11/10/19 09:52 Dose: 3.125 mg Enoxaparin Sodium (Lovenox) 40 mg SC 0900 [facility] Last Admin: 11/10/19 09:52 Dose: 40 mg Furosemide (Lasix) 40 mg SLOW IVP 0600,1400 [facility] Last Admin: 11/10/19 05:34 Dose: 40 mg Azithromycin 1,000 mg/ Sodium (Chloride) 500 mls @ 250 mls/hr IVPB Q24HR [facility] Last Admin: 11/09/19 22:45 Dose: 500 mls Ceftriaxone Sodium 1 gm/ (Sodium Chloride) 100 mls @ 200 mls/hr IVPB Q24HR [facility] Last Admin: 11/09/19 20:48 Dose: 100 mls Levothyroxine Sodium (Synthroid) 125 mcg PO 0600 [facility] Last Admin: 11/10/19 05:34 Dose: 125 mcg Lisinopril (Zestril) 2.5 mg PO DAILY [facility] Last Admin: 11/10/19 09:51 Dose: 2.5 mg Melatonin (Melatonin) 3 mg PO HS PRN PRN Reason: Insomnia Last Admin: 11/09/19 00:56 Dose: 3 mg Paroxetine HCl (Paxil) 20 mg PO DAILY [facility] Last Admin: 11/10/19 09:51 Dose: 20 mg Sodium Chloride (Flush - Normal Saline) 10 ml IVF Q12HR [facility] Last Admin: 11/10/19 09:53 Dose: 10 ml Sodium Chloride (Flush - Normal Saline) 10 ml IVF PRN PRN PRN Reason: Saline Flush Last Admin: 11/09/19 13:50 Dose: 10 ml Vital Signs & Weight: Vital Signs Temp Pulse Pulse Pulse Resp BP BP 11/10/19 10:33 88 86 115/58 L 11/10/19 09:51 77 11/10/19 08:00 98.3 F 77 20 115/58 L 11/10/19 07:45 11/10/19 06:44 11/10/19 03:44 97.7 F 77 18 130/76 Pulse Ox Pulse Ox 11/10/19 10:33 97 11/10/19 09:51 11/10/19 08:00 95 11/10/19 07:45 68 L 11/10/19 06:44 98 11/10/19 03:44 91 L Weight 172 lb 9.6 oz - Physical Exam General: alert & oriented x3, other (confused) HEENT: mucus membranes moist Neck: supple neck Cardiac: regular rate and rhythm, S1/S2 Lungs: clear to auscultation, decreased breath sounds Extremities: no edema - Labs Result Diagrams: 11/09/19 04:58 11/09/19 04:58 Troponin/CKMB CK-MB (CK-2) 1.2 ng/mL (0-6.6) 11/08/19 18:17 Troponin I 0.043 ng/mL (< 0.028) H 11/09/19 01:12 - Telemetry Sinus rhythms and dysrhythmias: sinus rhythm - Assessment/Plan Assessment/Plan: 1. Acute on chronic Systolic HF - stable;on Lasix 40mg IV BID, coreg 3.125mg BID , and Lisinopril 2.5mg qd; 2. PNA - ABX IV 3. CMY with EF 15-20% - no candidate for an AICD 4. Prox Afib - remains in SR; on Coreg and ASA; High risk of fall due to dementia and generalized weakness 5. CKD - stable 6. Hx of Rt Breast Cancer 7. Hypothyroidism 8. Dementia MAR reviewed Pt. seen and eval. by me. She does not remember why she came to the hosp. I agree with the A/P by the TELEPHONE ANSWERER. She says she is feeling better and wants to go home. The I/O's are not accurate, since she is going to the toilet. chest : few basilar rales. RRR, no edema. Hopefully home in 1-2 days.
[2019-11-10] MEDS: cefTRIAXone\\ROCEPHIN 1 GM in Sodium Chloride 0.9% 100 ML IVPB SCH (21:03)
[2019-11-10] MEDS: Azithromycin 1,000 MG in Sodium Chloride 0.9% 500 ML IVPB SCH (22:11)
[2019-11-11] MEDS: Furosemide 40 MG/4 ML VIAL SLOW IVP SCH ×2 (06:21→14:22)
[2019-11-11] MEDS: Levothyroxine Sodium 125 MCG TAB PO SCH (06:21)
[2019-11-11] MEDS: Aspirin 81 mg Enteric Coated Tablet PO SCH (08:56)
[2019-11-11] MEDS: Lisinopril 5 MG TAB PO SCH ×2 (08:56→21:36)
[2019-11-11] MEDS: PARoxetine 20 MG TAB PO SCH (08:56)
[2019-11-11] MEDS: Carvedilol 3.125 MG TAB PO SCH ×2 (08:56→21:37)
[2019-11-11] MEDS: Enoxaparin Sodium 40 MG/0.4 ML SYRINGE SC SCH (08:58)
[2019-11-11] MEDS: Acetaminophen 325 MG TAB PO PRN ×2 (09:14→17:59)
[2019-11-11 09:44] LABS: Anion Gap 16 mmol/L (10-20); BUN (Urea Nitrogen) 24 mg/dL (9.8-20.1); Calc. Creatinine Clearance 54 mL/min (70-130); Carbon Dioxide 26 mmol/L (23-31); Chloride 99 mmol/L (98-107); Estimated GFR-MDRD 52; Glucose 114 mg/dL (83-110); Potassium 3.4 mmol/L (3.5-5.1); Sodium 138 mmol/L (136-145)
[2019-11-11] MEDS ORDERED: Spironolactone 25 MG TAB PO SCH (09:45)
--- NOTE | 2019-11-11 12:29 | PDOC.HOSPP ---
- Subjective Subjective: Seen and examined. The patient is clinically improving. She is sitting up in the bed eating her breakfast in no acute distress. She is on oxygen, low-flow though she is saturating well. We'll try to wean her oxygen. Nonsustained be tach, five beats. Cardiology on the case, recommendations appreciated. - Objective Vital Signs & Weight: Vital Signs (12 hours) Temp Pulse Resp BP Pulse Ox 11/11/19 08:56 86 11/11/19 07:43 97.8 F 86 20 120/73 95 11/11/19 07:40 95 11/11/19 04:00 98.1 F 93 20 116/67 95 Weight Weight 168 lb 8 oz I&O: 11/10/19 11/11/19 11/12/19 06:59 06:59 06:59 Intake Total 2260 400 Output Total 500 450 Balance 1760 -50 Result Diagrams: 11/09/19 04:58 11/11/19 08:37 Radiology Reviewed by me: Yes Hospitalist ROS - Review of Systems All other systems reviewed; all pertinent +/- noted in HPI/Subj - Medication Medications: Active Medications Generic Name Dose Route Start Last Admin Trade Name Freq PRN Reason Stop Dose Admin Acetaminophen 650 mg 11/09/19 00:31 11/11/19 09:14 Tylenol PO 650 mg Q4H PRN Administration MILD pain 1-3/fever Albuterol Sulfate 2 puff 11/09/19 00:31 11/09/19 08:45 Proventil Hfa INH 2 puff Q4H PRN Administration SOB &/or Wheezing Aspirin 81 mg 11/09/19 09:00 11/11/19 08:56 Ecotrin PO 81 mg DAILY DAVID Administration Carvedilol 3.125 mg 11/09/19 09:00 11/11/19 08:56 Coreg PO 3.125 mg BID DAVID Administration Enoxaparin Sodium 40 mg 11/09/19 09:00 11/11/19 08:58 Lovenox SC 40 mg 0900 DAVID Administration Furosemide 40 mg 11/09/19 06:00 11/11/19 06:21 Lasix SLOW IVP 40 mg 0600,1400 DAVID Administration Azithromycin 1,000 mg/ Sodium 500 mls @ 250 mls/hr 11/09/19 22:00 11/10/19 22 :11 Chloride IVPB 500 mls Q24HR DAVID Administration Ceftriaxone Sodium 1 gm/ 100 mls @ 200 mls/hr 11/09/19 21:00 11/10/19 21:03 Sodium Chloride IVPB 100 mls Q24HR DAVID Administration Levothyroxine Sodium 125 mcg 11/09/19 06:00 11/11/19 06:21 Synthroid PO 125 mcg 0600 DAVID Administration Melatonin 3 mg 11/09/19 00:30 11/09/19 00:56 Melatonin PO 3 mg HS PRN Administration Insomnia Paroxetine HCl 20 mg 11/09/19 09:00 11/11/19 08:56 Paxil PO 20 mg DAILY DAVID Administration Sodium Chloride 10 ml 11/09/19 09:00 11/11/19 08:58 Flush - Normal Saline IVF 10 ml Q12HR DAVID Administration Sodium Chloride 10 ml 11/09/19 00:49 11/11/19 08:56 Flush - Normal Saline IVF 10 ml PRN PRN Administration Saline Flush - Exam General Appearance: NAD, awake alert Eye: anicteric sclera ENT: normocephalic atraumatic, moist mucosa Neck: supple, symmetric, no lymphadenopathy Heart: no murmur, no gallops, no rubs Respiratory: no wheezes, no ronchi, normal chest expansion, no tachypnea, rales (few faint) Gastrointestinal: soft, non-tender, no guarding, no rigidity Extremities: no edema Skin: no lesions, no rashes Neurological: cranial nerve grossly intact, no focal deficits Musculoskeletal: generalized weakness Psychiatric: normal behavior Hosp A/P (1) Pneumonia Code(s): J18.9 - PNEUMONIA, UNSPECIFIED ORGANISM Status: Acute (2) Acute on chronic systolic (congestive) heart failure Code(s): I50.23 - ACUTE ON CHRONIC SYSTOLIC (CONGESTIVE) HEART FAILURE Status : Acute (3) Acute respiratory failure with hypoxia Code(s): J96.01 - ACUTE RESPIRATORY FAILURE WITH HYPOXIA Status: Acute (4) Breast CA Status: Acute (5) Sepsis Code(s): A41.9 - SEPSIS, UNSPECIFIED ORGANISM Status: Acute (6) Asthma Code(s): J45.909 - UNSPECIFIED ASTHMA, UNCOMPLICATED Status: Chronic (7) Chronic atrial fibrillation Code(s): I48.20 - CHRONIC ATRIAL FIBRILLATION, UNSPECIFIED Status: Chronic (8) Chronic kidney disease, stage 2 (mild) Code(s): N18.2 - CHRONIC KIDNEY DISEASE, STAGE 2 (MILD) Status: Chronic (9) Dementia Code(s): F03.90 - UNSPECIFIED DEMENTIA WITHOUT BEHAVIORAL DISTURBANCE Status: Chronic (10) HTN (hypertension) Code(s): I10 - ESSENTIAL (PRIMARY) HYPERTENSION Status: Chronic Qualifiers: Hypertension type: essential hypertension Qualified Code(s): I10 - Essential (primary) hypertension - Plan Plan: medical unit telemetry cardiology consultation, recommendations appreciated congestive heart failure with acute exacerbation Wean oxygen, only use if O2 sat less than 88% cardiomyopathy regimen IV lasix fluid restrictions community acquired pneumonia continue IV antibiotics, breathing treatments Afebrile Normal WBC count continue other home medications as able blood pressure control blood sugar control G.I. prophylaxis DVT prophylaxis
--- NOTE | 2019-11-11 14:54 | EKG ---
Test Reason : Blood Pressure : / mmHG Vent. Rate : 115 BPM Atrial Rate : 115 BPM P-R Int : 164 ms QRS Dur : 086 ms QT Int : 338 ms P-R-T Axes : 033 -23 077 degrees QTc Int : 467 ms Sinus tachycardia with occasional Premature ventricular complexes and Fusion complexes Nonspecific T wave abnormality Abnormal ECG Confirmed by ADE MCKINNON ([id number]), magazine editor NAYE SALCEDO ([id number]) on 11/11/2019 2:54:25 PM Referred By: Confirmed By:ADE Lira
[2019-11-11] MEDS: cefTRIAXone\\ROCEPHIN 1 GM in Sodium Chloride 0.9% 100 ML IVPB SCH (21:36)
[2019-11-11] MEDS: Azithromycin 1,000 MG in Sodium Chloride 0.9% 500 ML IVPB SCH (23:09)
[2019-11-11 23:41] LABS: Potassium 4.3 mmol/L (3.5-5.1)
[2019-11-12] MEDS: Melatonin 3 MG TAB PO PRN ×2 (00:11→20:13)
[2019-11-12] MEDS: Levothyroxine Sodium 125 MCG TAB PO SCH (05:49)
[2019-11-12] MEDS: Furosemide 40 MG/4 ML VIAL SLOW IVP SCH (05:49)
[2019-11-12] MEDS: Enoxaparin Sodium 40 MG/0.4 ML SYRINGE SC SCH (09:47)
[2019-11-12] MEDS: PARoxetine 20 MG TAB PO SCH (09:47)
[2019-11-12] MEDS: Aspirin 81 mg Enteric Coated Tablet PO SCH (09:47)
[2019-11-12] MEDS: Carvedilol 3.125 MG TAB PO SCH ×2 (09:47→20:13)
[2019-11-12] MEDS: Spironolactone 25 MG TAB PO SCH (09:47)
[2019-11-12] MEDS: Lisinopril 5 MG TAB PO SCH ×2 (09:47→20:13)
[2019-11-12] MEDS: Acetaminophen 325 MG TAB PO PRN ×2 (11:18→20:13)
--- NOTE | 2019-11-12 12:11 | PDOC.HOSPP ---
- Subjective Subjective: Seen and examined. Patient's heart failure has improved dramatically and she has been wean from oxygen. At rest she has good saturation, we will ambulate her on room air and see how her oxygen saturation's holdup. Today is the first day off oxygen. If the patient can remain off oxygen for the next 24 to 48 hours we can plan on discharge accordingly. The patient does get confused and wanders around the halls per nursing staff, she cannot recall why she came to the hospital. Nursing staff and myself are concerned that due to the lack of social support at home, she may not be safe to go home and take care of herself without help. The patient tells me that she is interested in addressing her resuscitation status, she states that she would not want to live life on a ventilator. We will ask the palliative care team to consult, and hopefully we can have out of hospital arrest/DNR paperwork completed for her, at her request. - Objective Vital Signs & Weight: Vital Signs (12 hours) Temp Pulse Resp BP Pulse Ox 11/12/19 11:29 97.9 F 81 20 95/53 L 92 L 11/12/19 09:47 91 11/12/19 08:50 98.6 F 77 20 106/67 93 L 11/12/19 03:55 97.8 F 91 20 107/51 L 93 L Weight Weight 170 lb 1 oz I&O: 11/11/19 11/12/19 11/13/19 06:59 06:59 06:59 Intake Total 400 500 Output Total 450 275 Balance -50 225 Result Diagrams: 11/09/19 04:58 11/11/19 23:14 Radiology Reviewed by me: Yes Hospitalist ROS - Review of Systems All other systems reviewed; all pertinent +/- noted in HPI/Subj - Medication Medications: Active Medications Generic Name Dose Route Start Last Admin Trade Name Freq PRN Reason Stop Dose Admin Acetaminophen 650 mg 11/09/19 00:31 11/12/19 11:18 Tylenol PO 650 mg Q4H PRN Administration MILD pain 1-3/fever Albuterol Sulfate 2 puff 11/09/19 00:31 11/09/19 08:45 Proventil Hfa INH 2 puff Q4H PRN Administration SOB &/or Wheezing Aspirin 81 mg 11/09/19 09:00 03/22/20 09:47 Ecotrin PO 81 mg DAILY DAVID Administration Carvedilol 3.125 mg 11/09/19 09:00 11/12/19 09:47 Coreg PO 3.125 mg BID DAVID Administration Enoxaparin Sodium 40 mg 11/09/19 09:00 11/12/19 09:47 Lovenox SC 40 mg 0900 DAVID Administration Azithromycin 1,000 mg/ Sodium 500 mls @ 250 mls/hr 11/09/19 22:00 11/11/19 23 :09 Chloride IVPB 500 mls Q24HR DAVID Administration Ceftriaxone Sodium 1 gm/ 100 mls @ 200 mls/hr 11/09/19 21:00 11/11/19 21:36 Sodium Chloride IVPB 100 mls Q24HR DAVID Administration Levothyroxine Sodium 125 mcg 11/09/19 06:00 11/12/19 05:49 Synthroid PO 125 mcg 0600 DAVID Administration Lisinopril 2.5 mg 11/11/19 21:00 11/12/19 09:47 Zestril PO 2.5 mg BID DAVID Administration Melatonin 3 mg 11/09/19 00:30 11/12/19 00:11 Melatonin PO 3 mg HS PRN Administration Insomnia Paroxetine HCl 20 mg 11/09/19 09:00 11/12/19 09:47 Paxil PO 20 mg DAILY DAVID Administration Sodium Chloride 10 ml 11/09/19 09:00 11/12/19 09:48 Flush - Normal Saline IVF 10 ml Q12HR DAVID Administration Sodium Chloride 10 ml 11/09/19 00:49 11/11/19 08:56 Flush - Normal Saline IVF 10 ml PRN PRN Administration Saline Flush Spironolactone 25 mg 11/12/19 08:00 11/12/19 09:47 Aldactone PO 25 mg QAM-WM DAVID Administration - Exam General Appearance: NAD, awake alert Eye: PERRL ENT: normocephalic atraumatic, moist mucosa Neck: supple, symmetric, no thyromegaly Heart: no murmur, no gallops, no rubs Respiratory: no wheezes, no ronchi, normal chest expansion, rales (few faint- improving) Gastrointestinal: soft, non-tender, no guarding, no rigidity Extremities: no edema Skin: no lesions, no rashes Neurological: cranial nerve grossly intact, no focal deficits Psychiatric: oriented to person, oriented to place Hosp A/P (1) Pneumonia Code(s): J18.9 - PNEUMONIA, UNSPECIFIED ORGANISM Status: Acute (2) Acute on chronic systolic (congestive) heart failure Code(s): I50.23 - ACUTE ON CHRONIC SYSTOLIC (CONGESTIVE) HEART FAILURE Status : Acute (3) Acute respiratory failure with hypoxia Code(s): J96.01 - ACUTE RESPIRATORY FAILURE WITH HYPOXIA Status: Acute (4) Breast CA Status: Acute (5) Sepsis Code(s): A41.9 - SEPSIS, UNSPECIFIED ORGANISM Status: Acute (6) Asthma Code(s): J45.909 - UNSPECIFIED ASTHMA, UNCOMPLICATED Status: Chronic (7) Chronic atrial fibrillation Code(s): I48.20 - CHRONIC ATRIAL FIBRILLATION, UNSPECIFIED Status: Chronic (8) Chronic kidney disease, stage 2 (mild) Code(s): N18.2 - CHRONIC KIDNEY DISEASE, STAGE 2 (MILD) Status: Chronic (9) Dementia Code(s): F03.90 - UNSPECIFIED DEMENTIA WITHOUT BEHAVIORAL DISTURBANCE Status: Chronic (10) HTN (hypertension) Code(s): I10 - ESSENTIAL (PRIMARY) HYPERTENSION Status: Chronic Qualifiers: Hypertension type: essential hypertension Qualified Code(s): I10 - Essential (primary) hypertension - Plan Plan: medical unit telemetry cardiology consultation, recommendations appreciated Palliative care consult, recommendations appreciated - Goals of care to be addressed, patient tells me she would not want to live on a ventilator congestive heart failure with reduced systolic function, with acute exacerbation Wean oxygen, only use if O2 sat less than 88% cardiomyopathy regimen IV lasix fluid restrictions community acquired pneumonia continue IV antibiotics, breathing treatments Afebrile Normal WBC count continue other home medications as able blood pressure control blood sugar control G.I. prophylaxis DVT prophylaxis
[2019-11-12] MEDS: Furosemide 20 MG TAB PO SCH (15:07)
[2019-11-12] MEDS: cefTRIAXone\\ROCEPHIN 1 GM in Sodium Chloride 0.9% 100 ML IVPB SCH (20:13)
[2019-11-12] MEDS: Azithromycin 1,000 MG in Sodium Chloride 0.9% 500 ML IVPB SCH (21:26)
[2019-11-13] MEDS: Acetaminophen 325 MG TAB PO PRN ×4 (00:11→20:00)
[2019-11-13] MEDS: Levothyroxine Sodium 125 MCG TAB PO SCH (05:37)
[2019-11-13] MEDS: Furosemide 20 MG TAB PO SCH ×3 (08:24→16:37)
[2019-11-13] MEDS: Aspirin 81 mg Enteric Coated Tablet PO SCH (08:24)
[2019-11-13] MEDS: Lisinopril 5 MG TAB PO SCH ×2 (08:24→20:00)
[2019-11-13] MEDS: PARoxetine 20 MG TAB PO SCH (08:24)
[2019-11-13] MEDS: Spironolactone 25 MG TAB PO SCH (08:24)
[2019-11-13] MEDS: Enoxaparin Sodium 40 MG/0.4 ML SYRINGE SC SCH (08:25)
[2019-11-13] MEDS: Carvedilol 3.125 MG TAB PO SCH ×2 (08:25→19:59)
--- NOTE | 2019-11-13 08:40 | PDOC.HOSPP ---
- Subjective Encounter Date: 11/13/19 Encounter Time: 08:29 Subjective: no cough or sob - Objective Vital Signs & Weight: Vital Signs (12 hours) Temp Pulse Resp BP Pulse Ox 11/13/19 08:20 98.0 F 76 18 107/69 99 11/13/19 04:10 97.3 F L 87 17 108/63 97 Weight Weight 169 lb 12.8 oz I&O: 11/12/19 11/13/19 11/14/19 06:59 06:59 06:59 Intake Total 500 Output Total 275 Balance 225 Result Diagrams: 11/09/19 04:58 11/11/19 23:14 Hospitalist ROS - Medication Medications: Active Medications Generic Name Dose Route Start Last Admin Trade Name Freq PRN Reason Stop Dose Admin Acetaminophen 650 mg 11/09/19 00:31 11/13/19 05:37 Tylenol PO 650 mg Q4H PRN Administration MILD pain 1-3/fever Albuterol Sulfate 2 puff 11/09/19 00:31 11/09/19 08:45 Proventil Hfa INH 2 puff Q4H PRN Administration SOB &/or Wheezing Aspirin 81 mg 11/09/19 09:00 11/12/19 09:47 Ecotrin PO 81 mg DAILY DAVID Administration Carvedilol 3.125 mg 11/09/19 09:00 11/12/19 20:13 Coreg PO 3.125 mg BID DAVID Administration Enoxaparin Sodium 40 mg 11/09/19 09:00 11/12/19 09:47 Lovenox SC 40 mg 0900 DAVID Administration Furosemide 20 mg 11/12/19 14:00 11/12/19 15:07 Lasix PO 20 mg 0900,1400 DAVID Administration Azithromycin 1,000 mg/ Sodium 500 mls @ 250 mls/hr 11/09/19 22:00 11/12/19 21 :26 Chloride IVPB 500 mls Q24HR DAVID Administration Ceftriaxone Sodium 1 gm/ 100 mls @ 200 mls/hr 11/09/19 21:00 11/12/19 20:13 Sodium Chloride IVPB 100 mls Q24HR DAVID Administration Levothyroxine Sodium 125 mcg 11/09/19 06:00 11/13/19 05:37 Synthroid PO 125 mcg 0600 DAVID Administration Lisinopril 2.5 mg 11/11/19 21:00 11/12/19 20:13 Zestril PO 2.5 mg BID DAVID Administration Melatonin 3 mg 11/09/19 00:30 11/12/19 20:13 Melatonin PO 3 mg HS PRN Administration Insomnia Paroxetine HCl 20 mg 11/09/19 09:00 11/12/19 09:47 Paxil PO 20 mg DAILY DAVID Administration Sodium Chloride 10 ml 11/09/19 09:00 11/12/19 21:26 Flush - Normal Saline IVF 10 ml Q12HR DAVID Administration Sodium Chloride 10 ml 11/09/19 00:49 11/11/19 08:56 Flush - Normal Saline IVF 10 ml PRN PRN Administration Saline Flush Spironolactone 25 mg 11/12/19 08:00 11/12/19 09:47 Aldactone PO 25 mg QAM-WM DAVID Administration - Exam General Appearance: awake alert Neck: no JVD Heart: RRR, no murmur Respiratory: CTAB Gastrointestinal: soft, normal bowel sounds Extremities: no edema Hosp A/P (1) Pneumonia Code(s): J18.9 - PNEUMONIA, UNSPECIFIED ORGANISM Status: Acute Qualifiers: Pneumonia type: due to Pneumococcus Laterality: right Lung location: upper lobe of lung Qualified Code(s): J13 - Pneumonia due to Streptococcus pneumoniae (2) Acute on chronic systolic (congestive) heart failure Code(s): I50.23 - ACUTE ON CHRONIC SYSTOLIC (CONGESTIVE) HEART FAILURE Status : Acute (3) Acute respiratory failure with hypoxia Code(s): J96.01 - ACUTE RESPIRATORY FAILURE WITH HYPOXIA Status: Acute (4) Hypothyroidism Code(s): E03.9 - HYPOTHYROIDISM, UNSPECIFIED Status: Acute Qualifiers: Hypothyroidism type: unspecified Qualified Code(s): E03.9 - Hypothyroidism , unspecified (5) Chronic atrial fibrillation Code(s): I48.20 - CHRONIC ATRIAL FIBRILLATION, UNSPECIFIED Status: Chronic (6) Dementia Code(s): F03.90 - UNSPECIFIED DEMENTIA WITHOUT BEHAVIORAL DISTURBANCE Status: Chronic Qualifiers: Dementia type: unspecified type Dementia behavioral disturbance: without behavioral disturbance Qualified Code(s): F03.90 - Unspecified dementia without behavioral disturbance (7) HTN (hypertension) Code(s): I10 - ESSENTIAL (PRIMARY) HYPERTENSION Status: Chronic Qualifiers: Hypertension type: essential hypertension Qualified Code(s): I10 - Essential (primary) hypertension - Plan on po meds rpt cxr for status of PUL infiltrate CM for placement off O2, RA sats adequate
--- NOTE | 2019-11-13 09:18 | RAD ---
PORTABLE CHEST: HISTORY: CHF, pneumonia. COMPARISON: 10/2019. FINDINGS: Mild cardiomegaly is stable. The lungs appear clear with no infiltrate. Vascular markings are upper normal and stable. Postop changes over the left chest indicate prior mastectomy. IMPRESSION: No acute finding or interval change. POS: [facility]
--- NOTE | 2019-11-13 10:24 | PDOC.CPN ---
- Subjective Date: 11/13/19 Time: 08:30 Interval history: The pt seen and examined. No overnight events. No cardiac complaints. - Objective Allergies/Adverse Reactions: Allergies Allergy/AdvReac Type Severity Reaction Status Date / Time Sulfa (Sulfonamide Allergy Verified 11/11/19 14:33 Antibiotics) codeine AdvReac Mild Nausea Verified 11/11/19 14:33 Visit Medications: Current Medications Acetaminophen (Tylenol) 650 mg PO Q4H PRN PRN Reason: MILD pain 1-3/fever Last Admin: 11/13/19 05:37 Dose: 650 mg Albuterol Sulfate (Proventil Hfa) 2 puff INH Q4H PRN PRN Reason: SOB &/or Wheezing Last Admin: 11/09/19 08:45 Dose: 2 puff Aspirin (Ecotrin) 81 mg PO DAILY [facility] Last Admin: 11/13/19 08:24 Dose: 81 mg Carvedilol (Coreg) 3.125 mg PO BID [facility] Last Admin: 11/13/19 08:25 Dose: 3.125 mg Enoxaparin Sodium (Lovenox) 40 mg SC 0900 [facility] Last Admin: 11/13/19 08:25 Dose: 40 mg Furosemide (Lasix) 20 mg PO 0900,1400 [facility] Last Admin: 11/13/19 08:24 Dose: 20 mg Azithromycin 1,000 mg/ Sodium (Chloride) 500 mls @ 250 mls/hr IVPB Q24HR [facility] Last Admin: 11/12/19 21:26 Dose: 500 mls Ceftriaxone Sodium 1 gm/ (Sodium Chloride) 100 mls @ 200 mls/hr IVPB Q24HR [facility] Last Admin: 11/12/19 20:13 Dose: 100 mls Levothyroxine Sodium (Synthroid) 125 mcg PO 0600 [facility] Last Admin: 11/13/19 05:37 Dose: 125 mcg Lisinopril (Zestril) 2.5 mg PO BID [facility] Last Admin: 11/13/19 08:24 Dose: 2.5 mg Melatonin (Melatonin) 3 mg PO HS PRN PRN Reason: Insomnia Last Admin: 11/12/19 20:13 Dose: 3 mg Paroxetine HCl (Paxil) 20 mg PO DAILY [facility] Last Admin: 11/13/19 08:24 Dose: 20 mg Sodium Chloride (Flush - Normal Saline) 10 ml IVF Q12HR [facility] Last Admin: 11/13/19 08:25 Dose: 10 ml Sodium Chloride (Flush - Normal Saline) 10 ml IVF PRN PRN PRN Reason: Saline Flush Last Admin: 11/11/19 08:56 Dose: 10 ml Spironolactone (Aldactone) 25 mg PO QAM-WM [facility] Last Admin: 11/13/19 08:24 Dose: 25 mg Vital Signs & Weight: Vital Signs Temp Pulse Resp BP Pulse Ox 11/13/19 08:24 76 11/13/19 08:20 98.0 F 76 18 107/69 99 11/13/19 04:10 97.3 F L 87 17 108/63 97 Weight 169 lb 12.8 oz - Physical Exam General: other (confused) HEENT: mucus membranes moist Neck: supple neck Cardiac: regular rate and rhythm, S1/S2 Lungs: clear to auscultation, decreased breath sounds Extremities: no edema Skin: clear - Labs Result Diagrams: 11/09/19 04:58 11/11/19 23:14 Troponin/CKMB CK-MB (CK-2) 1.2 ng/mL (0-6.6) 11/08/19 18:17 Troponin I 0.043 ng/mL (< 0.028) H 11/09/19 01:12 - Telemetry Sinus rhythms and dysrhythmias: sinus rhythm - Assessment/Plan Assessment/Plan: 1. Acute on chronic Systolic HF - stable with RA;on Lasix 20mg PO BID, coreg 3.125mg BID, and Lisinopril 2.5mg qd; 2. PNA - ABX IV 3. CMY with EF 15-20% - no candidate for an AICD 4. Prox Afib - remains in SR; on Coreg and ASA; High risk of fall due to dementia and generalized weakness 5. CKD - stable 6. Hx of Rt Breast Cancer 7. Hypothyroidism 8. Dementia MAR reviewed * Pt. seen and eval. by me. I ageree with the A/P by the [employer]. She denies any cardiac symptoms. Chest clear,RRR. No edema. From a cardiac standpoint she is stable for d/c. whether she has adequate support at home is unclear. she may need to be considered for rehab. or a nursing facility. mary
--- NOTE | 2019-11-13 14:15 | PDOC.PALCO ---
Palliative Care Consult - Consult Details Requesting Physician: Dr Steel Reason for Consult: goals of care, advance directives assistance Family Members Present: None - Pertinent HPI 79 year old female who lives in a private residence with her . Recent admission October 26 for exacerbation of CHF. Discharged home, experienced increase in shortness of breath and edema as was re-evaluated in the emergency room with subsequent admission for medical management. - Pertinent PMH CHF with EJ 15-20%, Hypothyroid, Chronic atrial fib, CKD III, mild dementia - Social History Smoking Status: Never smoker Smoking: no tobacco exposure Alcohol Use: pt denies any use Drug Use History: none Living Situation: - Medications MAR Reviewed: Yes - Allergies Allergies/Adverse Reactions: Allergies Allergy/AdvReac Type Severity Reaction Status Date / Time Sulfa (Sulfonamide Allergy Verified 11/11/19 14:33 Antibiotics) codeine AdvReac Mild Nausea Verified 11/11/19 14:33 - Subjective Awake, alert and oriented during time of assessment, intermittent delay in memory recall. Complained of left had pain - ROS Constitutional: alert, weakness ENT: other (Negative for difficulty swallowing, congestion) Respiratory: shortness of breath with extertion, other (Negative for cough) Cardiology: other (negative for palpitations, chest pain) Gastrointestinal: other (negative for nausea, abdominal pain, constipation) Genitourinary: other (negative for dysuria, hematuria) Psychological: memory changes - Objective Vital Signs: Vital Signs - Most Recent Temp Pulse Resp BP Pulse Ox 97.5 F L 74 16 105/62 98 11/13/19 12:07 11/13/19 12:07 11/13/19 12:07 11/13/19 12:07 11/13/19 12:07 Palliative Performance Scale: 60 - Advance Directives Medical Power of Commercial Loan Processor: Indio Lopez - Physical Exam Constitutional: NAD HEENT: moist MMs, sclera anicteric Respiratory: no wheezing, unlabored breathing Cardiovascular: RRR Gastrointestinal: soft, non-tender Neurology: moves all 4 limbs Skin: cap refill <2 seconds, fragile Psychiatric: A&O x 3, normal mood - Problem List (1) Palliative care encounter Code(s): Z51.5 - ENCOUNTER FOR PALLIATIVE CARE Current Visit: Yes Status: Acute (2) Physical deconditioning Code(s): R53.81 - OTHER MALAISE Current Visit: Yes Status: Acute (3) Acute on chronic systolic (congestive) heart failure Code(s): I50.23 - ACUTE ON CHRONIC SYSTOLIC (CONGESTIVE) HEART FAILURE Current Visit: No Status: Acute (4) Acute respiratory failure with hypoxia Code(s): J96.01 - ACUTE RESPIRATORY FAILURE WITH HYPOXIA Current Visit: No Status: Acute (5) Chronic atrial fibrillation Code(s): I48.20 - CHRONIC ATRIAL FIBRILLATION, UNSPECIFIED Current Visit: No Status: Chronic - Plan/Recommendations Plan: Mrs Lopez confirmed that her Indio Lopez is her MPOA. She had two children who are . States that although she does not want to live "on machines" when further discussing resuscitative measures she wishes to have resuscitation measures attempted, including intubation. If she is not able to recover after a short time then she would desire to have comfort measures. Continue with full resuscitation. Consideration may be given to home health with a cardiac program as patient may benefit from PT/OT and O2 at home secondary to elevated risk for outpatient therapies. [45] minutes spent on this encounter with >50% of the time in counseling and coordination of care. Thank you for this very appropriate consult.
--- NOTE | 2019-11-13 16:09 | PQF ---
CLINICAL DOCUMENTATION IMPROVEMENT CLARIFICATION FORM: ICD-10 Updated PLEASE DO AN ADDENDUM TO THE PROGRESS NOTE WITH ANY DOCUMENTATION UPDATES OR ADDITIONS AND CARRY THROUGH TO DC SUMMARY. THANK YOU. DATE: 11/13/2019; 11/14/2019 ATTN: Dr. Oliveira / Dr. Amaya Please exercise your independent, professional judgment in responding to the clarification form. Clinical indicators are provided on the bottom of this form for your review Please check appropriate box(s) to clarify if the following diagnosis has been ruled in or ruled out: SEPSIS . [X ] Ruled in diagnosis [ X ] Continue to treat [ ] Resolved [ ] Ruled out diagnosis [ ] Improving [ ] Cannot rule out diagnosis [ ] Other diagnosis [ ] Unable to determine In addition, please specify: Present on Admission (POA): [ X ] Yes [ ] No [ ] Unable to determine For continuity of documentation, please document condition throughout progress notes and discharge summary. Thank You. CLINICAL INDICATORS - SIGNS / SYMPTOMS / LABS / RESULTS AND LOCATION IN MR H&P 11/08: VS: Temp 97.7; pulse 106, resp 20, O2 sat 96% on 2L nc, BP 119/77 Lab: White count 6.9 11/09-11/11 (Damián) Pneumonia Acute on chronic systolic CHF Acute respiratory failure with hypoxia Sepsis 11/12 (Tee) Pneumonia due to Streptococcus pneumoniae Acute on chronic systolic CHF Acute respiratory failure with hypoxia RISKS: H&P 11/08: 79 yr old female just admitted to this facility on October 26 and dc'd October 30. PMH CHF, Chronic A fib; CKD, 3. Dementia. TREATMENT: MAR: Order 11/08 Rocephin 1 gm MAR: Order 11/08 Zithromax IV Thank you, Soledad (This form is maintained as a part of the permanent medical record) 2014 [employer]. All Rights Reserved Soledad Gurrola RN, BSN [email or web address] Office: [phone] [facility]
[2019-11-13] MEDS: Melatonin 3 MG TAB PO PRN (19:59)
[2019-11-13] MEDS: cefTRIAXone\\ROCEPHIN 1 GM in Sodium Chloride 0.9% 100 ML IVPB SCH (20:00)
[2019-11-13] MEDS: Azithromycin 1,000 MG in Sodium Chloride 0.9% 500 ML IVPB SCH (20:24)
[2019-11-14] MEDS: Levothyroxine Sodium 125 MCG TAB PO SCH (05:33)
[2019-11-14] MEDS: Acetaminophen 325 MG TAB PO PRN ×3 (05:33→22:39)
[2019-11-14] MEDS: Carvedilol 3.125 MG TAB PO SCH ×2 (08:27→22:39)
[2019-11-14] MEDS: Spironolactone 25 MG TAB PO SCH (08:27)
[2019-11-14] MEDS: Lisinopril 5 MG TAB PO SCH ×2 (08:27→22:38)
[2019-11-14] MEDS: Furosemide 20 MG TAB PO SCH ×2 (08:27→15:19)
[2019-11-14] MEDS: PARoxetine 20 MG TAB PO SCH (08:27)
[2019-11-14] MEDS: Enoxaparin Sodium 40 MG/0.4 ML SYRINGE SC SCH (08:28)
[2019-11-14] MEDS: Aspirin 81 mg Enteric Coated Tablet PO SCH (08:29)
--- NOTE | 2019-11-14 09:29 | PDOC.CPN ---
- Subjective Date: 11/14/19 Time: 08:00 Interval history: The pt seen and examined. No overnight events. No cardiac complaints. - Objective Allergies/Adverse Reactions: Allergies Allergy/AdvReac Type Severity Reaction Status Date / Time Sulfa (Sulfonamide Allergy Verified 11/11/19 14:33 Antibiotics) codeine AdvReac Mild Nausea Verified 11/11/19 14:33 Visit Medications: Current Medications Acetaminophen (Tylenol) 650 mg PO Q4H PRN PRN Reason: MILD pain 1-3/fever Last Admin: 11/14/19 05:33 Dose: 650 mg Albuterol Sulfate (Proventil Hfa) 2 puff INH Q4H PRN PRN Reason: SOB &/or Wheezing Last Admin: 11/09/19 08:45 Dose: 2 puff Aspirin (Ecotrin) 81 mg PO DAILY [facility] Last Admin: 11/14/19 08:29 Dose: 81 mg Carvedilol (Coreg) 3.125 mg PO BID [facility] Last Admin: 11/14/19 08:27 Dose: 3.125 mg Enoxaparin Sodium (Lovenox) 40 mg SC 0900 [facility] Last Admin: 11/14/19 08:28 Dose: 40 mg Furosemide (Lasix) 20 mg PO 0900,1400 [facility] Last Admin: 11/14/19 08:27 Dose: 20 mg Azithromycin 1,000 mg/ Sodium (Chloride) 500 mls @ 250 mls/hr IVPB Q24HR [facility] Last Admin: 11/13/19 20:24 Dose: Not Given Ceftriaxone Sodium 1 gm/ (Sodium Chloride) 100 mls @ 200 mls/hr IVPB Q24HR [facility] Last Admin: 11/13/19 20:00 Dose: 100 mls Levothyroxine Sodium (Synthroid) 125 mcg PO 0600 [facility] Last Admin: 11/14/19 05:33 Dose: 125 mcg Lisinopril (Zestril) 2.5 mg PO BID [facility] Last Admin: 11/14/19 08:27 Dose: 2.5 mg Melatonin (Melatonin) 3 mg PO HS PRN PRN Reason: Insomnia Last Admin: 11/13/19 19:59 Dose: 3 mg Paroxetine HCl (Paxil) 20 mg PO DAILY [facility] Last Admin: 11/14/19 08:27 Dose: 20 mg Sodium Chloride (Flush - Normal Saline) 10 ml IVF Q12HR [facility] Last Admin: 11/14/19 08:29 Dose: 10 ml Sodium Chloride (Flush - Normal Saline) 10 ml IVF PRN PRN PRN Reason: Saline Flush Last Admin: 11/11/19 08:56 Dose: 10 ml Spironolactone (Aldactone) 25 mg PO QAM-WM DAVID Last Admin: 11/14/19 08:27 Dose: 25 mg Vital Signs & Weight: Vital Signs Temp Pulse Resp BP Pulse Ox 11/14/19 08:27 88 11/14/19 07:32 97.6 F 88 20 117/74 94 L 11/14/19 03:49 97.6 F 70 15 128/77 93 L Weight 171 lb - Physical Exam General: other (confused) HEENT: mucus membranes moist Neck: supple neck Cardiac: regular rate and rhythm, S1/S2 Lungs: decreased breath sounds - Labs Result Diagrams: 11/09/19 04:58 11/11/19 23:14 Troponin/CKMB CK-MB (CK-2) 1.2 ng/mL (0-6.6) 11/08/19 18:17 Troponin I 0.043 ng/mL (< 0.028) H 11/09/19 01:12 - Telemetry Sinus rhythms and dysrhythmias: sinus rhythm - Assessment/Plan Assessment/Plan: 1. Acute on chronic Systolic HF - stable with RA;on Lasix 20mg PO BID, coreg 3.125mg BID, and Lisinopril 2.5mg qd; 2. PNA - ABX IV 3. CMY with EF 15-20% - no candidate for an AICD 4. Prox Afib - remains in SR; on Coreg and ASA; High risk of fall due to dementia and generalized weakness 5. CKD - stable 6. Hx of Rt Breast Cancer 7. Hypothyroidism 8. Dementia MAR reviewed * From a cardiac standpoint she is stable for d/c. whether she has adequate support at home is unclear. she may need to be considered for rehab. or a nursing facility Pt. seen and eval. by me. i agree wkith the A/P by the GEOTECH[employer]ICAL INTERN. She denies any cardiac complaints today. Chest clear. RRR. She states that she is walking to the bathroom and back by herself but I havent seen her out of the bed. okay to d /c from the hospital. May need help at home. ?? mary
--- NOTE | 2019-11-14 11:46 | PDOC.HOSPP ---
- Subjective Encounter Date: 11/14/19 Encounter Time: 11:43 Subjective: Ms. Lopez was seen today in follow-up of pneumonia. She says she feels fine and wants to go home. She says she is breathing better. - Objective Vital Signs & Weight: Vital Signs (12 hours) Temp Pulse Resp BP Pulse Ox 11/14/19 11:22 97.5 F L 81 19 121/82 96 11/14/19 08:27 88 11/14/19 08:23 94 L 11/14/19 07:32 97.6 F 88 20 117/74 94 L 11/14/19 03:49 97.6 F 70 15 128/77 93 L Weight Weight 171 lb I&O: 11/13/19 11/14/19 11/15/19 06:59 06:59 06:59 Intake Total 700 Output Total 1050 Balance -350 Result Diagrams: 11/09/19 04:58 11/11/19 23:14 Hospitalist ROS - Medication Medications: Active Medications Generic Name Dose Route Start Last Admin Trade Name Freq PRN Reason Stop Dose Admin Acetaminophen 650 mg 11/09/19 00:31 11/14/19 10:29 Tylenol PO 650 mg Q4H PRN Administration MILD pain 1-3/fever Albuterol Sulfate 2 puff 11/09/19 00:31 11/09/19 08:45 Proventil Hfa INH 2 puff Q4H PRN Administration SOB &/or Wheezing Aspirin 81 mg 11/09/19 09:00 11/14/19 08:29 Ecotrin PO 81 mg DAILY DAVID Administration Carvedilol 3.125 mg 11/09/19 09:00 11/14/19 08:27 Coreg PO 3.125 mg BID DAVID Administration Enoxaparin Sodium 40 mg 11/09/19 09:00 11/14/19 08:28 Lovenox SC 40 mg 0900 DAVID Administration Furosemide 20 mg 11/12/19 14:00 11/14/19 08:27 Lasix PO 20 mg 0900,1400 DAVID Administration Azithromycin 1,000 mg/ Sodium 500 mls @ 250 mls/hr 11/09/19 22:00 11/13/19 20 :24 Chloride IVPB Not Given Q24HR DAVID Ceftriaxone Sodium 1 gm/ 100 mls @ 200 mls/hr 11/09/19 21:00 11/13/19 20:00 Sodium Chloride IVPB 100 mls Q24HR DAVID Administration Levothyroxine Sodium 125 mcg 11/09/19 06:00 11/14/19 05:33 Synthroid PO 125 mcg 0600 DAVID Administration Lisinopril 2.5 mg 11/11/19 21:00 11/14/19 08:27 Zestril PO 2.5 mg BID DAVID Administration Melatonin 3 mg 11/09/19 00:30 11/13/19 19:59 Melatonin PO 3 mg HS PRN Administration Insomnia Paroxetine HCl 20 mg 11/09/19 09:00 11/14/19 08:27 Paxil PO 20 mg DAILY DAVID Administration Sodium Chloride 10 ml 11/09/19 09:00 11/14/19 08:29 Flush - Normal Saline IVF 10 ml Q12HR DAVID Administration Sodium Chloride 10 ml 11/09/19 00:49 11/11/19 08:56 Flush - Normal Saline IVF 10 ml PRN PRN Administration Saline Flush Spironolactone 25 mg 11/12/19 08:00 11/14/19 08:27 Aldactone PO 25 mg QAM-WM DAVID Administration - Exam Eye: PERRL Heart: RRR, no murmur, no gallops, no rubs, normal peripheral pulses Respiratory: CTAB, no wheezes, no rales, no ronchi, normal chest expansion, no tachypnea Gastrointestinal: soft, non-tender, non-distended, normal bowel sounds Extremities: no cyanosis, no edema Hosp A/P (1) Pneumonia Code(s): J18.9 - PNEUMONIA, UNSPECIFIED ORGANISM Status: Acute Qualifiers: Pneumonia type: due to Pneumococcus Laterality: right Lung location: upper lobe of lung Qualified Code(s): J13 - Pneumonia due to Streptococcus pneumoniae (2) Chronic atrial fibrillation Code(s): I48.20 - CHRONIC ATRIAL FIBRILLATION, UNSPECIFIED Status: Chronic (3) Dementia Code(s): F03.90 - UNSPECIFIED DEMENTIA WITHOUT BEHAVIORAL DISTURBANCE Status: Chronic Qualifiers: Dementia type: unspecified type Dementia behavioral disturbance: without behavioral disturbance Qualified Code(s): F03.90 - Unspecified dementia without behavioral disturbance (4) HTN (hypertension) Code(s): I10 - ESSENTIAL (PRIMARY) HYPERTENSION Status: Chronic Qualifiers: Hypertension type: essential hypertension Qualified Code(s): I10 - Essential (primary) hypertension - Plan * Pneumonia- improving * Chronic systolic heart failure- compensated * Stable for discharge home
--- NOTE | 2019-11-14 18:15 | DIS ---
DATE OF ADMISSION: 11/09/2019 DATE OF DISCHARGE: 11/14/2019 DISCHARGE DISPOSITION: Home with home health. DISCHARGE DIAGNOSES: 1. Acute on chronic respiratory failure. 2. Community-acquired pneumonia. 3. Acute on chronic systolic heart failure, the ejection fraction was estimated at 15% to 20% with [place] Heart Association class 2. 4. Mild dementia. 5. Chronic atrial fibrillation. 6. History of breast cancer. 7. Chronic kidney disease, stage 3. 8. History of asthma. DISCHARGE MEDICATIONS: Include: 1. Aldactone 25 mg daily. 2. Paroxetine 20 mg daily. 3. Lisinopril 2.5 mg daily. 4. Levothyroxine 125 mcg p.o. daily. 5. Lasix 20 mg daily. 6. Carvedilol 3.125 mg twice a day. 7. Azithromycin 250 mg p.o. daily for two days. 8. Aspirin 81 mg daily. 9. Tylenol 650 mg q.4 as needed. CODE STATUS: Full code. ALLERGIES: SULFA AND CODEINE. HOSPITAL COURSE: Ms. Lopez is a pleasant 79-year-old female, who was admitted to the hospital after she was complaining of shortness of breath. She had a recent admission to the hospital. At that time, she was treated for acute on chronic systolic heart failure, was diuresed and did well. She came back with recurrent shortness of breath. Chest x-ray was suspicious for right upper lobe infiltrate versus fluid in the lung. She was essentially treated for both. Her digital ad trafficker was consulted and it was felt that there was no need for any change in her regimen. She was diuresed as well as placed on Rocephin as well as azithromycin. She improved over the course of the next couple of days. There was some concern that she was not safe to be discharged back to her home; however, the patient refused placement. She has grandchildren in the area as well as her , who would help in her care and she is being discharged with home health and as such, she is being discharged home to have early outpatient followup. Job ID: [id number]
[2019-11-14] MEDS ORDERED: Azithromycin 250 MG TAB PO SCH (22:15)
[2019-11-14] MEDS: Azithromycin 1,000 MG in Sodium Chloride 0.9% 500 ML IVPB SCH (22:46)
[2019-11-14] MEDS: cefTRIAXone\\ROCEPHIN 1 GM in Sodium Chloride 0.9% 100 ML IVPB SCH (22:46)
[2019-11-15] MEDS: Levothyroxine Sodium 125 MCG TAB PO SCH (05:15)
[2019-11-15] MEDS: Spironolactone 25 MG TAB PO SCH (09:06)
[2019-11-15] MEDS: Enoxaparin Sodium 40 MG/0.4 ML SYRINGE SC SCH (09:07)
[2019-11-15] MEDS: Furosemide 20 MG TAB PO SCH (09:07)
[2019-11-15] MEDS: Aspirin 81 mg Enteric Coated Tablet PO SCH (09:07)
[2019-11-15] MEDS: Carvedilol 3.125 MG TAB PO SCH (09:07)
[2019-11-15] MEDS: Lisinopril 5 MG TAB PO SCH (09:07)
[2019-11-15 09:08] LABS: Anion Gap 13 mmol/L (10-20); BUN (Urea Nitrogen) 26 mg/dL (9.8-20.1); Calc. Creatinine Clearance 51 mL/min (70-130); Calcium 9.7 mg/dL (7.8-10.44); Carbon Dioxide 29 mmol/L (23-31); Chloride 100 mmol/L (98-107); Estimated GFR-MDRD 50; Glucose 134 mg/dL (83-110); Potassium 3.8 mmol/L (3.5-5.1); Sodium 138 mmol/L (136-145)
[2019-11-15] MEDS: PARoxetine 20 MG TAB PO SCH (09:08)
[2019-11-15 11:50] VITALS: BP 115/72; TEMP 97.7
== END 2019-11-15 12:36 | disposition home health service (06) | DRG 871 ==
LOC: ERS 17:56 → 2SW 22:21 → OBSVTOIN 11-09 08:47 → 2NO 11-09 14:17
PROVIDERS: ADMIT Internal Medicine; ATTEND Internal Medicine
DX: A40.3 Sepsis due to Streptococcus pneumoniae (principal); I50.23 Acute on chronic systolic (congestive) heart failure; J13 Pneumonia due to Streptococcus pneumoniae; J96.21 Acute and chronic respiratory failure with hypoxia; I13.0 Hypertensive heart and chronic kidney disease with heart failure and stage 1 through stage 4 chronic kidney disease, or unspecified chronic kidney disease; I42.9 Cardiomyopathy, unspecified; I48.0 Paroxysmal atrial fibrillation; N18.3 Chronic kidney disease, stage 3 (moderate); E03.9 Hypothyroidism, unspecified; F03.90 Unspecified dementia, unspecified severity, without behavioral disturbance, psychotic disturbance, mood disturbance, and anxiety; J45.909 Unspecified asthma, uncomplicated; Z79.01 Long term (current) use of anticoagulants; Z88.2 Allergy status to sulfonamides; Z88.5 Allergy status to narcotic agent; Z79.890 Hormone replacement therapy; Z90.11 Acquired absence of right breast and nipple; Z79.51 Long term (current) use of inhaled steroids; Z79.82 Long term (current) use of aspirin; Z85.3 Personal history of malignant neoplasm of breast; Z79.899 Other long term (current) drug therapy
CPT/HCPCS: 36415; 71045; 80048; 80053; 81003; 81015; 82553; 83605; 83735; 83880; 84484; 85025; 87804; 93005; 93798; 96365; 96367; 96375; J0456; J0696; J1650; J1940; J3490; J7050

== ENCOUNTER 2019-12-06 11:06 | Observation (INO) | payer MEDICARE, OTHER ==
[2019-12-06 12:15] LABS: #Eosinphils 0.1 thou/uL (0.0-0.7); #Monocytes 0.3 thou/uL (0.11-0.59); %Basophils 0.8 % (0.0-1.0); %Eosinophils 1.7 % (0.0-10.0); %Lymphocytes 18.1 % (21.0-51.0); %Monocytes 5.3 % (0.0-10.0); %Neutrophils 74.1 % (42.0-75.0); Hemoglobin 12.6 g/dL (12.0-16.0); Mean Corpuscular HGB CONC 32.6 g/dL (32.0-36.0); Mean Corpuscular Hemoglobin 30.3 pg (27.0-31.0); Mean Corpuscular Volume 92.9 fL (78.0-98.0); Mean Platelet Volume 8.4 fL (7.4-10.4); Platelet Count 218 thou/uL (130-400); RBC Distribution Width 14.2 % (11.5-14.5); Red Blood Cell (RBC) Count 4.16 mill/uL (4.20-5.40); White Blood Cell (WBC) Count 5.5 thou/uL (4.8-10.8)
[2019-12-06 12:59] LABS: ALT (SGPT) 24 U/L (8-55); AST (SGOT) 24 U/L (5-34); Albumin 4.1 g/dL (3.4-4.8); Alkaline Phosphatase 86 U/L (40-110); BUN (Urea Nitrogen) 23 mg/dL (9.8-20.1); Bilirubin, Total 0.6 mg/dL (0.2-1.2); Calc. Creatinine Clearance 0 mL/min (70-130); Calcium 9.5 mg/dL (7.8-10.44); Carbon Dioxide 25 mmol/L (23-31); Chloride 106 mmol/L (98-107); Estimated GFR-MDRD 50; Globulin 2.6 g/dL (2.4-3.5); Glucose 94 mg/dL (83-110); Potassium 4.6 mmol/L (3.5-5.1); Protein, Total 6.7 g/dL (6.0-8.3); Sodium 139 mmol/L (136-145)
[2019-12-06 13:01] LABS: CKMB 0.8 ng/mL (0-6.6)
[2019-12-06 13:10] LABS: Anion Gap 13 mmol/L (10-20)
[2019-12-06] MEDS ORDERED: Furosemide 40 MG/4 ML VIAL ONE (13:48)
[2019-12-06] MEDS ORDERED: Aspirin Chewable 81 MG TAB ONE (13:48)
--- NOTE | 2019-12-06 14:01 | RAD ---
AP CHEST: Date: 12/06/2019 HISTORY: Dyspnea. COMPARISON: 11/13/2019. FINDINGS: Cardiomegaly. Mild vascular congestion. Diffuse interstitial and hazy alveolar infiltrates throughout the right lung. Linear atelectatic changes in the peripheral left lung. Clips overlying the right ax illa and right breast from prior breast surgery. IMPRESSION: Cardiomegaly with mild vascular congestion. Interstitial and alveolar infiltrates throughout the righ t lung could represent edema, although inflammatory process cannot be excluded. There is asymmetry wh en compared to the left lung. POS: [facility]
[2019-12-06] MEDS ORDERED: Guaifenesin DM 100-10/5 ML UDCUP PO PRN (14:19)
[2019-12-06] MEDS ORDERED: Ondansetron PF 4 MG/2 ML Vial IVP PRN (14:19)
[2019-12-06] MEDS ORDERED: Bisacodyl 10 MG SUPP PR PRN (14:19)
[2019-12-06] MEDS ORDERED: Senokot S 8.6-50 MG TAB PO PRN (14:19)
[2019-12-06 16:25] VITALS: BMI 31.6
[2019-12-06 17:06] LABS: Troponin I 0.052 ng/mL (< 0.028)
--- NOTE | 2019-12-06 17:43 | HP ---
REASON FOR ADMISSION: CHF exacerbation. HISTORY OF PRESENTING ILLNESS: The patient gives history of having shortness of breath from last evening. This progressively got worse. No fever. The patient mostly has dry cough with no expectoration. She does not use any oxygen at home. On arrival here, the patient was hypoxic and was placed on nasal cannula oxygen. Has no complaints of chest pain, palpitations, or PND. Has mild orthopnea. PAST MEDICAL AND SURGICAL HISTORY: History of CHF with ejection fraction of around 15% to 20%, history of chronic atrial fibrillation, hypertension, dyslipidemia, breast cancer, possible dementia, history of asthma, hysterectomy, mastectomy on the right side, hypothyroidism, and depression/anxiety. CURRENT MEDICATIONS: Please note, the patient does not recall any of her medications. According [facility], the patient is on, 1. Aspirin 81 mg daily. 2. Carvedilol 3.125 mg twice daily. 3. Lasix 20 mg twice daily. 4. DuoNeb 4 times daily. 5. Levothyroxine 125 mcg p.o. daily. 6. Lisinopril 2.5 mg daily. 7. Paroxetine 20 mg daily. 8. Spironolactone 25 mg daily. 9. Tylenol p.r.n. ALLERGIES: SULFA AND CODEINE. PERSONAL HISTORY: Quit smoking more than 10 years ago, prior to which has smoked 2 packs a day for more than 15 years or so. Does not abuse alcohol or drugs. Lives with her . The patient says she ambulates by herself. FAMILY HISTORY: Mother in her 40s, she had heart disease per the patient. She does not know the exact heart disease she had. Father in his 80s from natural causes. CODE STATUS: Full. POWER OF COLOR CONTROL OPERATOR: Her . REVIEW OF SYSTEMS: CONSTITUTIONAL: Negative for weight loss or gain, ability to conduct usual activities. SKIN: Negative for rash, itching. EYES: Negative for double vision, pain. ENT/MOUTH: Negative for nose bleeding, neck stiffness, pain, tenderness. CARDIOVASCULAR: Negative for palpitations, dyspnea on exertion, orthopnea. RESPIRATORY: Negative for shortness of breath, wheezing, cough, hemoptysis, fever or night sweats. GASTROINTESTINAL: Negative for poor appetite, abdominal pain, heartburn, nausea, vomiting, constipation, or diarrhea. GENITOURINARY: Negative for urgency, frequency, dysuria, nocturia. MUSCULOSKELETAL: Negative for pain, swelling. NEUROLOGIC/PSYCHIATRIC: Negative for anxiety, depression. ALLERGY/IMMUNOLOGIC: Negative for skin rash, bleeding tendency. PHYSICAL EXAMINATION: GENERAL: The patient is a 79-year-old female, who is currently not in any acute distress. VITAL SIGNS: Blood pressure 114/90, pulse 82 per minute, respiratory rate 22 per minute, temperature 98.8 degrees Fahrenheit, and saturating 100% on 3 L nasal cannula. NECK: Supple. No elevated JVD. HEENT: Eyes; extraocular muscles intact. Pupils reacting to light. Oral cavity, mucous membranes are moist. No exudates or congestion. CARDIOVASCULAR: S1 and S2 heard. S3 plus. Regular rhythm. RESPIRATORY SYSTEM: Air entry 1+ bilateral. Scattered rales in the infrascapular area. Rhonchi plus. ABDOMEN: Soft. Bowel sounds heard. No tenderness, rigidity, or guarding. EXTREMITIES: No peripheral edema or calf tenderness. VASCULAR: Peripheral pulses 1+ bilateral. No ischemic ulcerations or gangrene. CENTRAL NERVOUS SYSTEM: No gross focal motor deficits noted. The patient responds well to verbal questions. PSYCHIATRIC: No obvious hallucinations or delusions. LABORATORY DATA: Prior echo done in August of 2019 shows EF of 15% to 20%. White count of 5.5, H and H 12 and 38, platelet count is 218, MCV is 92 with 74% neutrophils. Electrolytes are stable. BUN 23, creatinine 1.0. Liver enzymes within normal limits. Troponin I 0.03. CK-MB 0.8. BNP is 1581. Albumin is 4.1. Chest x-ray done shows pulmonary vascular congestion. EKG done shows sinus rhythm at 86 beats per minute. CLINICAL IMPRESSION AND PLAN: The patient will be under observation on telemetry for acute on chronic congestive heart failure exacerbation with systolic dysfunction. It is unclear if the patient is compliant with her diet and medications. She likely has underlying dementia and cannot recall enough information. She will be on Lasix 40 mg IV at 6 a.m. and 2 p.m. She has received a dose of Lasix in the ER. We will continue her home dose of aspirin, carvedilol, lisinopril, Synthroid, and Paxil as before. Likely, the patient will be discharged in the morning once she has diuresed. We will wait for the 2 p.m. Lasix tomorrow and possible discharge around 4 p.m. to 5 p.m. if she is hemodynamically stable. If the patient were to have still requirements of needing oxygen and ongoing shortness of breath, she will be switched over to inpatient status tomorrow. Code status was discussed with her and she is a full code. Job ID: [id number]
[2019-12-06 19:50] LABS: Troponin I 0.035 ng/mL (< 0.028)
[2019-12-06] MEDS: Famotidine 20 MG TAB PO SCH (21:14)
[2019-12-06] MEDS: Acetaminophen 325 MG TAB PO PRN (22:05)
[2019-12-07] MEDS: Carvedilol 3.125 MG TAB PO SCH ×2 (01:09→08:31)
[2019-12-07] MEDS: Furosemide 40 MG/4 ML VIAL SLOW IVP SCH ×2 (05:04→14:06)
[2019-12-07 05:18] LABS: #Eosinphils 0.1 thou/uL (0.0-0.7); #Monocytes 0.4 thou/uL (0.11-0.59); #Neutrophils 3.1 thou/uL (1.40-6.50); %Basophils 0.7 % (0.0-1.0); %Eosinophils 3.1 % (0.0-10.0); %Lymphocytes 21.6 % (21.0-51.0); %Monocytes 8.5 % (0.0-10.0); %Neutrophils 66.1 % (42.0-75.0); Hemoglobin 12.8 g/dL (12.0-16.0); Mean Corpuscular HGB CONC 32.7 g/dL (32.0-36.0); Mean Corpuscular Hemoglobin 30.5 pg (27.0-31.0); Mean Corpuscular Volume 93.3 fL (78.0-98.0); Mean Platelet Volume 8.7 fL (7.4-10.4); Platelet Count 219 thou/uL (130-400); RBC Distribution Width 14.3 % (11.5-14.5); Red Blood Cell (RBC) Count 4.19 mill/uL (4.20-5.40); White Blood Cell (WBC) Count 4.6 thou/uL (4.8-10.8)
[2019-12-07 05:40] LABS: Anion Gap 13 mmol/L (10-20); BUN (Urea Nitrogen) 22 mg/dL (9.8-20.1); Calc. Creatinine Clearance 57 mL/min (70-130); Carbon Dioxide 26 mmol/L (23-31); Chloride 103 mmol/L (98-107); Estimated GFR-MDRD 55; Glucose 92 mg/dL (83-110); Sodium 138 mmol/L (136-145)
[2019-12-07] MEDS ORDERED: Levothyroxine Sodium 125 MCG TAB PO SCH (06:00)
[2019-12-07 08:01] LABS: Free T4 (Free Thyroxine) 0.83 ng/dL (0.70-1.48)
[2019-12-07] MEDS: Famotidine 20 MG TAB PO SCH (08:31)
[2019-12-07] MEDS ORDERED: Aspirin Chewable 81 MG TAB PO SCH (09:00)
[2019-12-07] MEDS ORDERED: PARoxetine 20 MG TAB PO SCH (09:00)
[2019-12-07] MEDS ORDERED: Lisinopril 2.5 MG TAB PO SCH (09:00)
[2019-12-07] MEDS ORDERED: Enoxaparin Sodium 40 MG/0.4 ML SYRINGE SC SCH (09:00)
[2019-12-07] MEDS: Acetaminophen 325 MG TAB PO PRN (09:14)
[2019-12-07 16:46] VITALS: BP 100/55; TEMP 97.8
--- NOTE | 2019-12-07 17:07 | DIS ---
DATE OF ADMISSION: 12/06/2019 DATE OF DISCHARGE: 12/07/2019 DISCHARGE DISPOSITION: [facility] in [place], [place]. Accepting physician is Dr. Ritter. PRIMARY DISCHARGE DIAGNOSIS: Congestive heart failure exacerbation with systolic dysfunction and the ejection fraction of around 20%. SECONDARY DISCHARGE DIAGNOSES: History of chronic atrial fibrillation in sinus rhythm likely paroxysmal, hypertension, dyslipidemia, history of breast cancer, history of asthma, history of breast cancer with right mastectomy, hypothyroidism, depression, anxiety. PROCEDURES DONE DURING HOSPITALIZATION: Chest x-ray done showed pulmonary vascular congestion. H and H 12 and 39, platelet count 219, MCV is 93. BUN 22, creatinine 0.9. Troponin I 0.05. BNP 1581. Albumin is 4.1, BUN 23, creatinine 1. DISCHARGE MEDICATIONS: 1. Aspirin 81 mg p.o. daily. 2. Coreg 3.125 mg p.o. twice daily. 3. Lasix 20 mg twice daily at 9 a.m. and 2 p.m. 4. DuoNeb 4 times daily. 5. Levothyroxine 125 mcg p.o. daily. 6. Lisinopril 2.5 mg daily. 7. Paroxetine 20 mg daily. 8. Tylenol p.r.n. ALLERGIES: ALLERGIES TO SULFA AND CODEINE. DISCHARGE PLAN: The patient is to [facility] Ritter will be her primary care physician in the [facility]. BRIEF COURSE DURING HOSPITALIZATION: The patient initially came in with complaints of shortness of breath. She has known history of CHF with ejection fraction of around 20%. She has had recurrent hospitalizations here for similar issue. She was gently diuresed during her stay here. Her orthopnea and exertional shortness of breath have resolved at present. She received a total of 4 doses of IV Lasix. She has remained hemodynamically stable. Her medications were optimized prior to discharge. The patient had elevated TSH at 19.22, hence a free T3 and free T4 were ordered, which were within normal limits. Her free T4 was 0.83, free T3 was 2.86. She needs to continue her current Synthroid as before and needs to have a recheck in 4 to 6 weeks. The patient was counseled with regard to medication compliance and dietary compliance with 2 g sodium diet and fluid restriction of 1200 mL per day. She has been accepted to [facility] in [place], [place], family's choice and will be discharged when the facility has a bed available. Please note, I have seen and examined the patient on the day of discharge. Job ID: [id number]
== END 2019-12-07 17:18 ==
LOC: ERS 11:06 → 2NO 14:20
PROVIDERS: ADMIT Internal Medicine; ATTEND Internal Medicine
DX: I11.0 Hypertensive heart disease with heart failure (principal); I50.20 Unspecified systolic (congestive) heart failure; I48.20 Chronic atrial fibrillation, unspecified; J45.909 Unspecified asthma, uncomplicated; E78.5 Hyperlipidemia, unspecified; E03.9 Hypothyroidism, unspecified; F41.9 Anxiety disorder, unspecified; F32.9 Major depressive disorder, single episode, unspecified; Z79.82 Long term (current) use of aspirin; Z79.899 Other long term (current) drug therapy; Z87.891 Personal history of nicotine dependence; Z88.2 Allergy status to sulfonamides; Z88.5 Allergy status to narcotic agent
CPT/HCPCS: 71045; 80048; 80053; 82553; 83735; 83880; 84439; 84443; 84481; 84484 ×2; 85025 ×2; 93005; 93798; 94640 ×2; 96372; 96374; 96376; 99285; G0378 ×3; J1650; J1940 ×2; J7620 ×2; 36415